=== PATIENT | female | born 1935 | race Caucasian/White ===

== ENCOUNTER → 2017-03-07 | Day surgery (SDC) | payer BC ==
[2017-03-02 10:30] VITALS: Ht 161.3 cm; Wt 75.0 kg
[~2017-03-07] VITALS: Ht 161.3 cm; Wt 75.0 kg
[~2017-03-07] MED LIST: 500ML BSS 0.3ML EPI 1:1000PF IRRIG ONE; ACETAMINOPHEN 325 MG TAB PO PRN; ACETTAB14 PO; AMVISC PLUS 0.8ML SYRINGE INT OCU ONE; ATROPINE SULFATE 0.1 MG/ML 5ML SYR IV PRN; BROM0.0911 OPL; BSS FLUSH ONE; CHOL100010 PO; CMD/1 PO; ENDOCOAT 0.85ML SYRINGE INT OCU ONE; EpHEDrine SULFATE INJ 50 MG/ML AMP IV PRN; EpINEphrine INJ 1MG/ML AMP 1 MG/ML AMP ONE; FENTANYL CITRATE INJ 50 MCG/1 ML 2 ML VIAL ONE; LACTATED RINGER'S 1000ML 500 ML IV SCH; LIDOCAINE 4% OP SOLN DROP CHARGE ONE; LIDOCAINE 4% OP SOLN DROP CHARGE OPL SCH; LIDOCAINE HCL 1% MPF 2 ML VIAL ONE; LISI-729 PO; METF-383 PO; MIDAZOLAM HCL 1 MG/ML 2ML VIAL ONE; MIX: 4ML BSS 1ML EPI 1:1000 PF TOP ONE; MOXIFLOXACIN OPH SOLN PER DROP CHARGE ONE; OMEGCAP2 PO; POVIDONE-IODINE OP SOLN 30 ML BTL ONE; PRED1SUS3 OPL; PROPARACAINE 0.5% OP SOLN PER DROP CHARGE OPL SCH; TOBRAMYCIN/DEXAMETHASONE OPH OINT PER APPLN CHARGE ONE; WARF-246 PO
[2017-03-07] MEDS: TROPICAMIDE 1% OP SOLN PER DROP CHARGE OPL SCH ×3 (09:19→09:29)
[2017-03-07] MEDS: CYCLOPENTOLATE HCL 1% OP SOLN PER DROP CHARGE OPL SCH ×3 (09:20→09:30)
[2017-03-07] MEDS: PHENYLEPHRINE HCL 10% OP SOLN 5 ML BTL OPL SCH ×3 (09:20→09:28)
[2017-03-07] MEDS: MOXIFLOXACIN OPH SOLN PER DROP CHARGE OPL SCH ×3 (09:21→09:31)
--- NOTE | 2017-03-07 09:27 | History & Physical Bridge - [place] ---
H&P Re-Evaluation Bridge Note: I have examined the patient, reviewed the History & Physical and in the interval since the performance of the History & Physical I have noted the following changes of clinical significance: No changes noted
--- NOTE | 2017-03-07 10:35 | [facility] Post Operative Brief Note ---
Immediate Operative Summary Operative Date Mar 07, 2017. Pre-Operative Diagnosis Left Eye Cataract Post-Operative Diagnosis same Procedure(s) Performed Left Cataract Phacoemulsification With Intraocular Lens Implant Surgeon Dr. Shiloh Barahona Plant Nursery Worker Surgeon(s) 0 Estimated Blood Loss 0 Findings left cataract Specimens none Complication(s) None Disposition
[2017-03-07 10:36] VITALS: BP 137/75; PULSE 66; TEMP 36.2; O2SAT 97
--- NOTE | 2017-03-07 10:36 | [facility] Operative Report ---
Operative Report Date of Service Mar 07, 2017. Operative Report DATE OF OPERATION: 03/07/17 PREOPERATIVE DIAGNOSIS: Senile nuclear cataract, left eye POSTOPERATIVE DIAGNOSIS: Senile nuclear cataract, left eye PROCEDURE PERFORMED: Phacoemulsification with intraocular lens implantation, left eye SURGEON: Dr. Feng Barahona ANESTHESIA: Topical with 1% intracameral lidocaine and monitored anesthesia care COMPLICATIONS: None DESCRIPTION OF PROCEDURE: After positively identifying the patient both verbally and by wristband in the preoperative area, the left eye was marked as the operative eye. The patient was then brought back to the operating room by the anesthesia and nursing staff where they were given a drop of Lidocaine and betadine into the operative eye. They were then sterilely prepped and draped in the standard fashion typical for ophthalmic surgery. Steri-strips were placed along the upper eyelids to keep the lashes back, and a lid speculum was placed into the operative eye. At this point, a documented time out was performed with members of the ophthalmology, nursing, and anesthesia staffs all agreeing upon the correct patient, correct location for surgery, correct procedure, and correct type and power of intraocular lens to be implanted. The microscope was then swung into position. First, a paracentesis wound was made using a sideport blade. Then, in sequence, 1% preservative-free lidocaine followed by Endocoat viscoelastic was injected into the anterior chamber. Next , the main incision was made with a keratome blade in triplanar fashion. A sharp cystotome was introduced into the eye and used to create a tear in the anterior capsule, which was directed into a continuous curvilinear capsulorrhexis using Utrata forceps. Hydrodissection was then performed with BSS on a flat-tip cannula. Next, the phacoemulsification handpiece was introduced into the eye and used to remove the nucleus in a [id number] fashion. This was done without complication and then the irrigation-aspiration handpiece was introduced into the eye and used to remove all remaining cortical and epinuclear material. Amvisc was then injected into the anterior chamber as well as into the capsular bag and using the lens injector system, an MX60 24.5 D lens, serial number [id number], and expiration date 07/2019 was injected into the capsular bag and rotated into the correct position. Next, the irrigation- aspiration handpiece was used to remove all remaining Amvisc. BSS was used to hydrate the main wound, and then BSS was injected into the paracentesis site to reach physiologic pressure and then the main wound was checked and found to be watertight. The patient was given drops of Vigamox and Tobradex ointment into the operative eye, and then the surrounding area was cleaned and dried. A clear plastic shield was placed over the eye and the patient was then sat up and taken from the operating room by the anesthesia staff having tolerated the procedure well and suffering no complications. DISPOSITION: The patient was returned to the recovery room in stable condition. I attest to the content of the Intraoperative Record and any orders documented therein. Any exceptions are noted below.
--- NOTE | 2017-03-07 10:37 | Discharge Instructions-SurgCtr ---
Discharge Instructions Date of Service Mar 07, 2017. Visit Reason for Visit: Cataract Left Eye Discharge Discharge Diagnosis / Problem: left cataract Discharge Goals Goal(s): Decrease discomfort, Improve function Medications Stopped Medications Name(s): metformin stopped 3 days ago Activity Recommendations Activity Limitations: as noted below Anesthesia . Post Anesthesia Instructions: If you have had General Anesthesia or IV Sedation: * Do not drive today. * Resume driving when surgeon permits. * Do not make important decisions or sign legal documents today. * Call surgeon for: 1. Temperature elevations greater than 101 degrees F. 2. Uncontrollable pain. 3. Excessive bleeding. 4. Persistent nausea and vomiting. 5. Medication intolerance (nausea, vomiting or rash). * For nausea and vomiting use only clear liquids such as: tea, soda, bouillon until nausea subsides, then gradually increase diet as tolerated. * If you have any concerns or questions, call your surgeon's office. If physician is unavailable and it is an emergency, call 911 or go to the nearest emergency room. . Instructions / Follow-Up Instructions / Follow-Up ACTIVITY RECOMMENDATIONS: * Light activities. * You may walk outside, read, watch television. * You may notice redness on the white part of the eye and some blurry vision - this is normal. MEDICATIONS: Resume previous medications unless instructed otherwise by your surgeon. Start all eye drops at 12:30 pm today: * Eye drops (today): Prednisone - one drop in operative eye every 2 hours while awake Ofloxacin - one drop in operative eye every 2 hours while awake Bromfenac - one drop in operative eye daily SPECIAL CARE INSTRUCTIONS: * Tape plastic shield over eye to sleep at night. Call your doctor at with any concerns or problems. FOLLOW UP VISIT: Follow-up with Dr Barahona at [place] office as scheduled. Diet Recommendations Home Diet: no limitations Procedures Procedures Performed: Left Cataract Phacoemulsification With Intraocular Lens Implant Pending Studies Studies pending at discharge: no Medical Emergencies . Who to Call and When: Medical Emergencies: If at any time you feel your situation is an emergency, please call 911 immediately. . Non-Emergent Contact Non-Emergency issues call your: Surgeon . . "Provider Documentation" section prepared by Feng Barahona. .
--- NOTE | 2017-03-07 10:45 | Anesthesia Progress Nt - [facility] ---
Anesthesia Post Op Note Date & Time Mar 07, 2017 at 10:45 Vital Signs Pain Intensity: 0 Vital Signs Past 12 Hours Date Time Temp Pulse Resp B/P (MAP) Pulse Ox O2 Delivery O2 Flow Rate FiO2 03/07/17 10:36 36.2 66 16 137/75 (95) 97 Room Air 03/07/17 09:10 36.7 69 16 165/83 (110) 97 Room Air Notes Mental Status: alert / awake / arousable, participated in evaluation Pt Amnestic to Procedure: Yes Nausea / Vomiting: adequately controlled Pain: adequately controlled Airway Patency, RR, SpO2: stable & adequate BP & HR: stable & adequate Hydration State: stable & adequate Anesthetic Complications: no major complications apparent
== END | disposition home or self-care (01) ==
LOC: X.SURG 08:36
PROVIDERS: ATTEND Ophthalmology
DX: H25.12 Age-related nuclear cataract, left eye (principal); I10 Essential (primary) hypertension; E78.00 Pure hypercholesterolemia, unspecified; E11.9 Type 2 diabetes mellitus without complications; M06.9 Rheumatoid arthritis, unspecified; K21.9 Gastro-esophageal reflux disease without esophagitis; K44.9 Diaphragmatic hernia without obstruction or gangrene; E78.5 Hyperlipidemia, unspecified; Z79.01 Long term (current) use of anticoagulants

== ENCOUNTER → 2017-03-21 | Day surgery (SDC) | payer BC ==
[2017-03-19 08:50] VITALS: Ht 161.3 cm; Wt 75.0 kg
[~2017-03-21] VITALS: Ht 161.3 cm; Wt 75.0 kg
[~2017-03-21] MED LIST changes: -EpHEDrine SULFATE INJ 50 MG/ML AMP IV PRN; -FENTANYL CITRATE INJ 50 MCG/1 ML 2 ML VIAL ONE; +LACTATED RINGER'S 1000ML 1,000 ML IV SCH; -LACTATED RINGER'S 1000ML 500 ML IV SCH; -LIDOCAINE 4% OP SOLN DROP CHARGE OPL SCH; +LIDOCAINE 4% OP SOLN DROP CHARGE OPR SCH; -PROPARACAINE 0.5% OP SOLN PER DROP CHARGE OPL SCH; +PROPARACAINE 0.5% OP SOLN PER DROP CHARGE OPR SCH
[2017-03-21] MEDS: PHENYLEPHRINE HCL 2.5% OP SOLN PER DROP CHARGE OPR SCH ×3 (07:28→07:38)
[2017-03-21] MEDS: TROPICAMIDE 1% OP SOLN PER DROP CHARGE OPR SCH ×3 (07:29→07:39)
[2017-03-21] MEDS: CYCLOPENTOLATE HCL 1% OP SOLN PER DROP CHARGE OPR SCH ×3 (07:30→07:40)
[2017-03-21] MEDS: MOXIFLOXACIN OPH SOLN PER DROP CHARGE OPR SCH ×3 (07:31→07:43)
--- NOTE | 2017-03-21 08:29 | [facility] Post Operative Brief Note ---
Immediate Operative Summary Operative Date Mar 21, 2017. Pre-Operative Diagnosis Cataract Right Eye Post-Operative Diagnosis same as preop Procedure(s) Performed Right Cataract Phacoemulsification With Intraocular Lens Implant Surgeon Dr. Barahona Hand Molder Surgeon(s) none Estimated Blood Loss 0ml Findings right cataract Specimens none, per surgeon. Complication(s) None Disposition
[2017-03-21 08:30] VITALS: TEMP 36.4
--- NOTE | 2017-03-21 08:30 | [facility] Operative Report ---
Operative Report Date of Service Mar 21, 2017. Operative Report Phaco with monofocal IOL DATE OF OPERATION: 03/21/17 PREOPERATIVE DIAGNOSIS: Senile nuclear cataract, right eye POSTOPERATIVE DIAGNOSIS: Senile nuclear cataract, right eye PROCEDURE PERFORMED: Phacoemulsification with intraocular lens implantation, right eye SURGEON: Dr. Feng Barahona ANESTHESIA: Topical with 1% intracameral lidocaine and monitored anesthesia care COMPLICATIONS: None DESCRIPTION OF PROCEDURE: After positively identifying the patient both verbally and by wristband in the preoperative area, the right eye was marked as the operative eye. The patient was then brought back to the operating room by the anesthesia and nursing staff where they were given a drop of Lidocaine and betadine into the operative eye. They were then sterilely prepped and draped in the standard fashion typical for ophthalmic surgery. Steri-strips were placed along the upper eyelids to keep the lashes back, and a lid speculum was placed into the operative eye. At this point, a documented time out was performed with members of the ophthalmology, nursing, and anesthesia staffs all agreeing upon the correct patient, correct location for surgery, correct procedure, and correct type and power of intraocular lens to be implanted. The microscope was then swung into position. First, a paracentesis wound was made using a sideport blade. Then, in sequence, 1% preservative-free lidocaine followed by Endocoat viscoelastic was injected into the anterior chamber. Next , the main incision was made with a keratome blade in triplanar fashion. A sharp cystotome was introduced into the eye and used to create a tear in the anterior capsule, which was directed into a continuous curvilinear capsulorrhexis using Utrata forceps. Hydrodissection was then performed with BSS on a flat-tip cannula. Next, the phacoemulsification handpiece was introduced into the eye and used to remove the nucleus in a bplqys-emv-fkowubh fashion. This was done without complication and then the irrigation-aspiration handpiece was introduced into the eye and used to remove all remaining cortical and epinuclear material. Amvisc was then injected into the anterior chamber as well as into the capsular bag and using the lens injector system, an MX60 24.5 D lens, serial number [id number], and expiration date 07/2019 was injected into the capsular bag and rotated into the correct position. Next, the irrigation- aspiration handpiece was used to remove all remaining Amvisc. BSS was used to hydrate the main wound, and then BSS was injected into the paracentesis site to reach physiologic pressure and then the main wound was checked and found to be watertight. The patient was given drops of Vigamox and Tobradex ointment into the operative eye, and then the surrounding area was cleaned and dried. A clear plastic shield was placed over the eye and the patient was then sat up and taken from the operating room by the anesthesia staff having tolerated the procedure well and suffering no complications. DISPOSITION: The patient was returned to the recovery room in stable condition. I attest to the content of the Intraoperative Record and any orders documented therein. Any exceptions are noted below.
--- NOTE | 2017-03-21 08:31 | Discharge Instructions-SurgCtr ---
Discharge Instructions Date of Service Mar 21, 2017. Visit Reason for Visit: Cataract Right Eye Discharge Discharge Diagnosis / Problem: right cataract Discharge Goals Goal(s): Decrease discomfort, Improve function Medications Stopped Medications Name(s): Metformin stopped 2 days ago Activity Recommendations Activity Limitations: as noted below Anesthesia . Post Anesthesia Instructions: If you have had General Anesthesia or IV Sedation: * Do not drive today. * Resume driving when surgeon permits. * Do not make important decisions or sign legal documents today. * Call surgeon for: 1. Temperature elevations greater than 101 degrees F. 2. Uncontrollable pain. 3. Excessive bleeding. 4. Persistent nausea and vomiting. 5. Medication intolerance (nausea, vomiting or rash). * For nausea and vomiting use only clear liquids such as: tea, soda, bouillon until nausea subsides, then gradually increase diet as tolerated. * If you have any concerns or questions, call your surgeon's office. If physician is unavailable and it is an emergency, call 911 or go to the nearest emergency room. . Instructions / Follow-Up Instructions / Follow-Up ACTIVITY RECOMMENDATIONS: * Light activities. * You may walk outside, read, watch television. * You may notice redness on the white part of the eye and some blurry vision - this is normal. MEDICATIONS: Resume previous medications unless instructed otherwise by your surgeon. Start all eye drops at 10:30 am today: * Eye drops (today): Prednisone - one drop in operative eye every 2 hours while awake Ofloxacin - one drop in operative eye every 2 hours while awake Bromfenac - one drop in operative eye daily SPECIAL CARE INSTRUCTIONS: * Tape plastic shield over eye to sleep at night. Call your doctor at with any concerns or problems. FOLLOW UP VISIT: Follow-up with Dr Barahona at [place] office as scheduled. Diet Recommendations Home Diet: no limitations Procedures Procedures Performed: Right Cataract Phacoemulsification With Intraocular Lens Implant Pending Studies Studies pending at discharge: no Medical Emergencies . Who to Call and When: Medical Emergencies: If at any time you feel your situation is an emergency, please call 911 immediately. . Non-Emergent Contact Non-Emergency issues call your: Surgeon . . "Provider Documentation" section prepared by Feng Barahona. .
[2017-03-21 08:52] VITALS: BP 154/83; PULSE 61; O2SAT 97
--- NOTE | 2017-03-21 09:02 | Anesthesiology Progress Note ---
Anesthesia Post Op Note Date & Time Mar 21, 2017 at 09:02 Vital Signs Pain Intensity: 0 Vital Signs Past 12 Hours Date Time Temp Pulse Resp B/P (MAP) Pulse Ox O2 Delivery O2 Flow Rate FiO2 03/21/17 08:52 61 16 154/83 (106) 97 Room Air 03/21/17 08:30 36.4 64 18 144/73 (96) 96 Room Air 03/21/17 07:16 36.7 65 16 145/83 (103) 97 Room Air Notes Mental Status: alert / awake / arousable, participated in evaluation Pt Amnestic to Procedure: Yes Nausea / Vomiting: adequately controlled Pain: adequately controlled Airway Patency, RR, SpO2: stable & adequate BP & HR: stable & adequate Hydration State: stable & adequate Anesthetic Complications: no major complications apparent
== END | disposition home or self-care (01) ==
LOC: X.SURG 06:57
PROVIDERS: ATTEND Ophthalmology
DX: H25.11 Age-related nuclear cataract, right eye (principal); I10 Essential (primary) hypertension; E10.9 Type 1 diabetes mellitus without complications; E78.00 Pure hypercholesterolemia, unspecified

== ENCOUNTER → 2017-06-21 | Day surgery (SDC) | payer BC ==
[2017-06-14 09:08] VITALS: Ht 161.3 cm; Wt 75.0 kg
[~2017-06-21] VITALS: Ht 161.3 cm; Wt 75.0 kg
[~2017-06-21] MED LIST changes: -500ML BSS 0.3ML EPI 1:1000PF IRRIG ONE; -ACETAMINOPHEN 325 MG TAB PO PRN; -ACETTAB14 PO; +ACETTAB15 PO; -AMVISC PLUS 0.8ML SYRINGE INT OCU ONE; -BROM0.0911 OPL; -BSS FLUSH ONE; -ENDOCOAT 0.85ML SYRINGE INT OCU ONE; +EpHEDrine SULFATE INJ 50 MG/ML AMP IV PRN; -EpINEphrine INJ 1MG/ML AMP 1 MG/ML AMP ONE; -LACTATED RINGER'S 1000ML 1,000 ML IV SCH; -LIDOCAINE 4% OP SOLN DROP CHARGE ONE; -LIDOCAINE 4% OP SOLN DROP CHARGE OPR SCH; -LIDOCAINE HCL 1% MPF 2 ML VIAL ONE; +LIDOCAINE HCL 2% 2 ML VIAL (20MG/ML) ONE; -MIX: 4ML BSS 1ML EPI 1:1000 PF TOP ONE; -MOXIFLOXACIN OPH SOLN PER DROP CHARGE ONE; -OMEGCAP2 PO; +ONDANSETRON INJ 2 MG/ML 2 ML VIAL ONE; +PHENYLEPHRINE 100MCG/ML 5ML SYR ONE; -POVIDONE-IODINE OP SOLN 30 ML BTL ONE; -PRED1SUS3 OPL; -PROPARACAINE 0.5% OP SOLN PER DROP CHARGE OPR SCH; +PROPOFOL IV EMULSION 10 MG/ML 20 ML VIAL IV ONE; +SODIUM CHLORIDE 0.9% 500ML 500 ML IV ONE; -TOBRAMYCIN/DEXAMETHASONE OPH OINT PER APPLN CHARGE ONE; +ZNTT/150 PO
--- NOTE | 2017-06-21 09:20 | Endo History and Physical ---
History & Physical Date of Service: Jun 21, 2017. Chief Complaint: Referring Physician: History of Present Illness patient with iron def anemia Past Medical History Diabetes, Anxiety, Hypertension, Thrombophlebitis Past Surgical History Hx Cardiac Surgery: Yes (CARDIAC CATH (DIAGNOSTIC)) Hx Internal Defibrillator: No Hx Pacemaker: No Hx Abdominal Surgery: Yes (OVARIAN CYST REMOVAL) Hx Post-Op Nausea and Vomiting: No Hx Cancer Surgery: Yes (LYMPH NODE EXCISION ON NECK FOR BX) Hx Thoracic Surgery: No Hx Orthopedic: No Hx Urinary Tract Surgery: No Family History None Social History Smoking Status: Never Smoker Hx Substance Use: No Hx Alcohol Use: No Allergies Coded Allergies: Statins (Verified Allergy, Unknown, muscle pain,weakness, 06/04/17) Current Medications Reported Home Medications Medications Dose Route/Sig Max Daily Dose Days Date Category Zantac (Ranitidine HCl) 150 Mg Tab 150 Mg PO BID 06/14/17 Reported Vitamin D (Cholecalciferol) 1,000 Unit Tab 1 Tab PO BID 06/04/17 Reported Prinivil (Lisinopril) 5 Mg Tab 5 Mg PO QPM 03/19/17 Reported Warfarin Sodium (Warfarin Sod) 1 Mg Tab 7 Mg PO T,W,R,SA,SUN 03/02/17 Reported Excedrin Tension Headache (Acetaminophen-Caffeine) 1 Tab Tab PO DAILY PRN 03/15/15 Reported Warfarin Sodium 5 Mg Tab 5 Mg PO MF 90 02/23/15 Reported Glucophage (Metformin Hcl) 850 Mg Tab 850 Mg PO TIDM 02/23/15 Reported Vital Signs Weight (Kilograms): 75 Height (Feet): 5 Height (Inches): 3.5 Physical Exam General Appearance: no apparent distress Respiratory/Chest: Auscultation: breath sounds normal Cardiovascular: Heart Auscultation: RRR Abdomen: Inspection & Palpation: soft, no tenderness, guarding & rebound Assessment and Plan stable for EGD/ Colonoscopy
[2017-06-21 09:25] VITALS: TEMP 36.9
--- NOTE | 2017-06-21 10:16 | Discharge Instructions ---
Endoscopy Patient Instructions Date / Procedure(s) Performed Jun 21, 2017. Colonoscopy, EGD Allergy Information Coded Allergies: Statins (Verified Allergy, Unknown, muscle pain,weakness, 06/04/17) Discharge Date / Findings Jun 21, 2017. stomach with gastric erosions/ small polyp removed Medication Instructions Stopped Medication(s): last dose warfarin last night Provider Instructions Activity Restrictions - No exercising or heavy lifting for 24 hours. - Do not drink alcohol the day of the procedure. - Do not drive a car or operate machinery until the day after the procedure. - Do not make any important decisions or sign important papers in 24 hours after the procedure. Following Day: - Return to full activity which may include returning to work/school. Diet Start your diet with liquids and light foods (jello, soup, juice, toast). Then eat your usual diet if not nauseated. Treatment For Common After Affects For mild abdominal pain, bloating, or excessive gas: - Rest - Eat lightly - Lie on right side Follow-Up Information Follow-up with Dr. Elizabeth Ma as scheduled Anesthesia Information What You Should Know You have had a procedure that required some medicine to reduce anxiety and discomfort. This treatment is called moderate sedation. After receiving the treatment, you may be sleepy, but you will be able to breathe on your own. The effects of the treatment may last for several hours. Follow these instructions along with Activity/Diet recommendations noted above: * Do NOT do anything where dizziness or clumsiness would be dangerous. * Rest quietly at home today, then you can be up and about tomorrow. * Have a responsible person stay with you the rest of today. * You may have had an I.V. today. If so, you may take the dressing off later today. Recommendations Call your doctor if: * Trouble breathing * Continuous vomiting for more than 24 hours * Temperature above 101 degrees * Severe abdominal pain or bloating * Pain not relieved by pain medicine ordered * There is increased drainage or redness from any incision * A large amount of rectal bleeding greater than 2-3 tablespoons. (If you had a polyp/s removed or have hemorrhoids, a small amount of blood - from the rectum is to be expected.) * You have any unanswered questions or concerns. IN THE EVENT OF A SERIOUS EMERGENCY, GO TO THE NEAREST EMERGENCY ROOM Your discharge instructions were prepared by provider Yves Josue. Patient Instructions Signature Page Aylin Alters Patient (or Guardian) Signature/Date: I have read and understand the instructions given to me by my caregivers. Caregiver/RN/Doctor Signature/Date: The above-named patient and/or guardian has received patient instructions on this date. + Original Patient Signature Page (only) stays with chart. Please make copy for patient.
--- NOTE | 2017-06-21 10:25 | Anesthesiology Progress Note ---
Anesthesia Post Op Note Date & Time Jun 21, 2017 at 10:24 Vital Signs Pain Intensity: 0 Vital Signs Past 12 Hours Date Time Temp Pulse Resp B/P (MAP) Pulse Ox O2 Delivery O2 Flow Rate FiO2 06/21/17 10:15 67 20 98/47 (64) 95 Room Air 06/21/17 09:25 36.9 93 20 174/98 (123) 98 Room Air Notes Mental Status: alert / awake / arousable, participated in evaluation Pt Amnestic to Procedure: Yes Nausea / Vomiting: adequately controlled Pain: adequately controlled Airway Patency, RR, SpO2: stable & adequate BP & HR: stable & adequate Hydration State: stable & adequate Anesthetic Complications: no major complications apparent
[2017-06-21 10:45] VITALS: BP 126/70; PULSE 69; O2SAT 97
--- NOTE | 2017-06-22 00:23 | GI REPORT ---
Procedure Date: 06/21/2017 9:13 AM Procedure: Upper GI endoscopy Indications: Iron deficiency anemia Medicines: See the Anesthesia note for documentation of the administered medications Complications: No immediate complications. Estimated Blood Loss: Estimated blood loss was minimal. Procedure: Pre-Anesthesia Assessment: - Prior to the procedure, a History and Physical was performed, and patient medications, allergies and sensitivities were reviewed. The patient's tolerance of previous anesthesia was reviewed. - The risks and benefits of the procedure and the sedation options and risks were discussed with the patient. All questions were answered and informed consent was obtained. - Patient identification and proposed procedure were verified prior to the procedure by the physician and the nurse. The procedure was verified in the pre-procedure area. - Pre-procedure physical examination revealed no contraindications to sedation. - After reviewing the risks and benefits, the patient was deemed in satisfactory condition to undergo the procedure. After obtaining informed consent, the endoscope was passed under direct vision. Throughout the procedure, the patient's blood pressure, pulse, and oxygen saturations were monitored continuously. The scope was introduced through the mouth, and advanced to the third part of duodenum. The upper GI endoscopy was accomplished without difficulty. The patient tolerated the procedure well. Findings: The esophagus was normal. Multiple dispersed small erosions were found in the gastric antrum. Biopsies were taken with a cold forceps for Helicobacter pylori testing. Verification of patient identification for the specimen was done by the physician and nurse using the patient's name and medical record number. Estimated blood loss was minimal. A few erosions without bleeding were found in the first part of the duodenum. The cardia and gastric fundus were normal on retroflexion. Impression: - Normal esophagus. - Erosive gastropathy most likely from NSAID use. Biopsied. - Duodenal erosions without bleeding. Recommendation: - Await pathology results. - Patient should stay on PPI daily indefinitley. - Perform a colonoscopy today. Yevs Josue M.D. Yves Josue MD 06/21/2017 10:11:04 AM This report has been signed electronically. Note Initiated On: 06/21/2017 9:13 AM I attest to the content of the Intraoperative Record and orders documented therein, exceptions below
--- NOTE | 2017-06-22 00:23 | GI REPORT ---
Procedure Date: 06/21/2017 9:47 AM Procedure: Colonoscopy Indications: Iron deficiency anemia Medicines: See the Anesthesia note for documentation of the administered medications Complications: No immediate complications. Estimated Blood Loss: Estimated blood loss was minimal. Procedure: Pre-Anesthesia Assessment: - See the other procedure note for documentation of the pre-procedure assessment. After I obtained informed consent, the scope was passed under direct vision. Throughout the procedure, the patient's blood pressure, pulse, and oxygen saturations were monitored continuously. The scope was introduced through the anus and advanced to the terminal ileum, with identification of the appendiceal orifice and IC valve. The colonoscopy was performed without difficulty. The patient tolerated the procedure well. The quality of the bowel preparation was fair. Findings: The perianal and digital rectal examinations were normal. A 5 mm polyp was found in the cecum. The polyp was sessile. The polyp was removed with a cold snare. Resection and retrieval were complete. Verification of patient identification for the specimen was done by the physician and nurse using the patient's name and medical record number. Estimated blood loss was minimal. The exam was otherwise without abnormality on direct and retroflexion views. Impression: - One 5 mm polyp in the cecum, removed with a cold snare. Resected and retrieved. - The examination was otherwise normal on direct and retroflexion views. - Fair prep. Recommendation: - Await pathology results. - Discharge patient to home. Yves Josue M.D. Yves Josue MD 06/21/2017 10:12:39 AM This report has been signed electronically. Note Initiated On: 06/21/2017 9:47 AM I attest to the content of the Intraoperative Record and orders documented therein, exceptions below
== END | disposition home or self-care (01) ==
LOC: C.GI 09:06
PROVIDERS: ATTEND Internal Medicine Gastroenterology
DX: D50.9 Iron deficiency anemia, unspecified (principal); D12.0 Benign neoplasm of cecum; K29.50 Unspecified chronic gastritis without bleeding; E11.9 Type 2 diabetes mellitus without complications; F41.9 Anxiety disorder, unspecified; I10 Essential (primary) hypertension

== ENCOUNTER 2017-07-04 13:25 | Observation (INO) | payer BC ==
[~2017-07-04] VITALS: Ht 160 cm; Wt 73.6 kg
[~2017-07-04 13:25] MED LIST changes: -ATROPINE SULFATE 0.1 MG/ML 5ML SYR IV PRN; -EpHEDrine SULFATE INJ 50 MG/ML AMP IV PRN; -LIDOCAINE HCL 2% 2 ML VIAL (20MG/ML) ONE; -MIDAZOLAM HCL 1 MG/ML 2ML VIAL ONE; -ONDANSETRON INJ 2 MG/ML 2 ML VIAL ONE; -PHENYLEPHRINE 100MCG/ML 5ML SYR ONE; -PROPOFOL IV EMULSION 10 MG/ML 20 ML VIAL IV ONE; -SODIUM CHLORIDE 0.9% 500ML 500 ML IV ONE
[2017-07-04] MEDS ORDERED: CYAN10005 PO (14:46)
[2017-07-04] MEDS ORDERED: WARF4TAB43 PO (14:46)
[2017-07-04] MEDS ORDERED: FENO1TAB PO (14:46)
--- NOTE | 2017-07-04 14:54 | DIAGNOSTIC IMAGING REPORT ---
SINGLE VIEW CHEST CLINICAL HISTORY: Atypical chest pain. FINDINGS: An AP, portable, upright chest radiograph is compared to study dated 02/28/2015 and correlated with chest CT dated 02/27/2015. The examination is degraded by portable technique and patient rotation. The cardiomediastinal silhouette is unremarkable. There is atherosclerotic calcification of the thoracic aorta. Chronic interstitial thickening is unchanged. There are chronic appearing bibasilar opacities. No large pleural effusion or pneumothorax is seen. The skeletal structures are osteopenic. The bony thorax is grossly intact. Degenerative change is seen throughout the thoracic spine. IMPRESSION: There are chronic appearing bibasilar airspace opacities, left greater than right. Correlate clinically for evidence of a superimposed infectious/inflammatory pneumonitis. Electronically signed by: Godwin Painter M.D. 07/04/2017 2:52 PM Dictated Date/Time: 07/04/2017 2:50 PM
[2017-07-04 14:56] LABS: BASO % 0.5 %; BASO ABS # 0.04 K/uL (0-0.2); COMPLETE YES; EOS % 5.2 %; HEMATOCRIT 30.6 % (37-47); IG% 0.2 %; LYMPH % 34.8 %; LYMPH ABS # 2.86 K/uL (1.2-3.4); MEAN CELL VOLUME 80.1 fL (80-100); MEAN CORPUSCULAR HEMOGLOBIN 25.1 pg (25-34); MEAN CORPUSCULAR HGB CONC 31.4 g/dl (32-36); MEAN PLATELET VOLUME 9.5 fL (7.4-10.4); NEUT % 52.3 %; PLATELET COUNT 454 K/uL (130-400); RED BLOOD COUNT 3.82 M/uL (4.2-5.4); WHITE BLOOD COUNT 8.23 K/uL (4.8-10.8)
--- NOTE | 2017-07-04 14:56 | DIAGNOSTIC IMAGING REPORT ---
HEAD WITHOUT CONTRAST (CT) CLINICAL HISTORY: 82 years-old Female presenting with eval for bleed, fall. TECHNIQUE: Multidetector CT imaging of the head was performed without the use of intravenous contrast. IV contrast: None. A dose lowering technique was used consistent with the principles of ALARA (as low as reasonably achievable). COMPARISON: None. CT DOSE (mGy.cm): The estimated cumulative dose is 537.48 mGy.cm. 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 Proportional ventricular and sulcal prominence, likely age-related parenchymal volume loss. Brain parenchyma normal in appearance with preserved lanza-white differentiation. No mass effect or midline shift. No hemorrhage or acute territorial infarct. No extra-axial fluid collection. Paranasal sinuses and mastoid air cells clear. Calvarium intact. IMPRESSION: 1. No acute intracranial abnormality. Electronically signed by: Herberth Lima M.D. 07/04/2017 2:54 PM Dictated Date/Time: 07/04/2017 2:52 PM
[2017-07-04 15:09] LABS: INR 3.3 (0.9-1.1); PARTIAL THROMBOPLASTIN RATIO 1.5; PROTHROMBIN TIME (PATIENT) 37.1 SECONDS (9.0-12.0)
[2017-07-04 15:14] LABS: BUN/CREATININE RATIO 16.7 (10-20); CALCIUM 9.7 mg/dl (8.5-10.1); CREATININE 1.18 mg/dl (0.60-1.20); POTASSIUM 4.4 mmol/L (3.5-5.1)
[2017-07-04] MEDS ORDERED: NITROGLYCERIN OINT 2% 1GM PACKET EXT ONE (16:00)
--- NOTE | 2017-07-04 16:24 | History and Physical ---
History & Physical Date & Time of Service: Jul 04, 2017 at 16:24 Chief Complaint: Chest Pressure Primary Care Physician: Elizabeth Ma M.D. 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 Sunday at she was talking to her Neighbor on the driveway -she said she blacked out and fell on the ground , does not recall hitting her head or having injury anywhere denies of having chest pressure , SOB , dizzy spell , nausea prior to fall , her neighbors helped her to get up , she said she did not feel weak , or confused , She walked back to her house , did not seek any medical attention reviewing pt's medical records -Hx of Fe deficiency/Microcytic anemia ; out pt stool Heme occult was positive -EGD /Colonoscopy done on 06/21/17 showed no evidence of GI bleed, evidence of gastritic in stomach and duodenum,-pathology : chronic gastritis , Immunostain negative for H Pylori Colonoscopic eval showed adenomatous polyp pt was scheduled for Out pt cardiac stress test for her ongoing symptoms of chest heaviness Exercise stress test could not be scheduled due to Anemia /poor exercise tolerance Pt was seen at [facility] Room Engineer office today EGG done in office showed no ischemic change due to concern for ongoing chest tightness /recent Syncope -pt was asked to come to ER for detail cardiac work up pt was chest pain free in ER during my evaluation , continued feel dizzy and lightheaded when she stood up Orthostatic BP check shows hypotension with change of position Supine 168/83 ; Sitting 153/77 ; Standing 112/77 Past Medical/Surgical History Medical Problems: (1) Diabetes Status: Chronic (2) Diabetes Status: Chronic (3) HTN (hypertension) Status: Chronic (4) Hypercholesteremia Status: Chronic (5) Hypertension Status: Chronic Family History Patient reports no known family medical history. Social History Smoking Status: Never Smoker Marital Status: Occupational Status: retired Multi-Drug Resistant Organisms History of MDRO: No Allergies Coded Allergies: Statins (Verified Allergy, Unknown, muscle pain,weakness, 06/04/17) Home Medications Scheduled Cholecalciferol (Vitamin D), 1 TAB PO BID Cyanocobalamin (Vitamin B-12), 1,000 MCG PO DAILY Fenofibrate (Tricor), 1 TAB PO DAILY Lisinopril (Prinivil), 5 MG PO QPM Metformin Hcl (Glucophage), 850 MG PO TIDM Ranitidine (Zantac), 150 MG PO BID Warfarin Sodium (Warfarin Sodium), 5 MG PO MF Warfarin Sodium (Warfarin Sodium), 1 TAB PO UD Scheduled PRN Acetaminophen-Caffeine (Excedrin Tension Headache), PO DAILY PRN for Headache Review of Systems Constitutional: + weakness, + fatigue Eyes: No worsening of vision, No eye pain, No redness, No discharge, No diplopia, No problem reported ENT: No hearing loss, No unusual epistaxis, No nasal symptoms, No sore throat, No tinnitus, No dental problems, No trouble swallowing, No problem reported Respiratory: + dyspnea on exertion Cardiovascular: + chest pain (central chest pressure for past few weeks ) Abdomen: No pain, No nausea, No vomiting, No diarrhea, No constipation, No GI bleeding, No problem reported Musculoskeletal: No joint pain, No muscle pain, No swelling, No calf pain, No problem reported Genitourinary - Female: No dysuria, No urinary frequency, No urinary urgency, No urinary incontinence, No urinary retention, No hematuria, No dysmenorrhea, No menorrhagia, No metrorrhagia, No rash, No vaginal bleeding, No vaginal discharge, No vaginal itching, No vulvodynia, No , No problem reported Neurologic: + weakness, + vertigo (while standing ), + problem reported ( syncope ) Endocrine: + fatigue Physical Exam Vital Signs Date Time Temp Pulse Resp B/P (MAP) Pulse Ox O2 Delivery O2 Flow Rate FiO2 07/04/17 15:52 78 20 167/90 96 Room Air 07/04/17 14:39 77 07/04/17 14:38 Room Air 07/04/17 13:39 36.9 80 20 142/83 96 Room Air General Appearance: no apparent distress Head: normocephalic, atraumatic Eyes: normal inspection, PERRL, EOMI, sclerae normal ENT: normal ENT inspection, hearing grossly normal, pharynx normal Neck: thyroid normal, no carotid bruits Respiratory/Chest: chest non-tender, lungs clear, normal breath sounds, no respiratory distress Cardiovascular: regular rate, rhythm, no edema, no gallop, no JVD, no murmur, normal peripheral pulses Abdomen/GI: normal bowel sounds, non tender, soft Extremities/Musculoskelatal: normal inspection, no calf tenderness, normal capillary refill, no pedal edema, normal range of motion Neurologic/Psych: no motor/sensory deficits, alert, normal mood/affect, oriented x 3 Skin: normal color, warm/dry, no rash Lymphatic: no adenopathy Diagnostics Laboratory Results Results Past 24 Hours Test 07/04/17 14:30 07/04/17 14:34 Range/Units White Blood Count 8.23 4.8-10.8 K/uL Red Blood Count 3.82 4.2-5.4 M/uL Hemoglobin 9.6 12.0-16.0 g/dL Hematocrit 30.6 37-47 % Mean Corpuscular Volume 80.1 80-100 fL Mean Corpuscular Hemoglobin 25.1 25-34 pg Mean Corpuscular Hemoglobin Concent 31.4 32-36 g/dl Platelet Count 454 130-400 K/uL Mean Platelet Volume 9.5 7.4-10.4 fL Neutrophils (%) (Auto) 52.3 % Lymphocytes (%) (Auto) 34.8 % Monocytes (%) (Auto) 7.0 % Eosinophils (%) (Auto) 5.2 % Basophils (%) (Auto) 0.5 % Neutrophils # (Auto) 4.30 1.4-6.5 K/uL Lymphocytes # (Auto) 2.86 1.2-3.4 K/uL Monocytes # (Auto) 0.58 0.11-0.59 K/uL Eosinophils # (Auto) 0.43 0-0.5 K/uL Basophils # (Auto) 0.04 0-0.2 K/uL RDW Standard Deviation 55.2 36.4-46.3 fL RDW Coefficient of Variation 19.3 11.5-14.5 % Immature Granulocyte % (Auto) 0.2 % Immature Granulocyte # (Auto) 0.02 0.00-0.02 K/uL Prothrombin Time 37.1 9.0-12.0 SECONDS Prothromb Time International Ratio 3.3 0.9-1.1 Activated Partial Thromboplast Time 38.7 21.0-31.0 SECONDS Partial Thromboplastin Ratio 1.5 Sodium Level 135 136-145 mmol/L Potassium Level 4.4 3.5-5.1 mmol/L Chloride Level 106 98-107 mmol/L Carbon Dioxide Level 22 21-32 mmol/L Anion Gap 7.0 3-11 mmol/L Blood Urea Nitrogen 20 7-18 mg/dl Creatinine 1.18 0.60-1.20 mg/dl Est Creatinine Clear Calc Drug Dose 36.3 ml/min Estimated GFR () 50.1 Estimated GFR (Non- 43.2 BUN/Creatinine Ratio 16.7 10-20 Random Glucose 108 70-99 mg/dl Calcium Level 9.7 8.5-10.1 mg/dl Bedside Troponin I < 0.030 0-0.045 ng/ml Diagnostic Radiology CHEST XRAY : IMPRESSION: There are chronic appearing bibasilar airspace opacities, left greater than right. Correlate clinically for evidence of a superimposed infectious/inflammatory pneumonitis. CT HEAD WITH OUT CONTRAST ; No acute intracranial process EKG Vent. rate 81 BPM MA interval 160 ms QRS duration 82 ms QT/QTc 360/418 ms P-R-T axes 58 -50 40 Sinus rhythm with Premature atrial complexes Left anterior fascicular block Abnormal ECG When compared with ECG of 28-FEB-2015 08:24, Premature atrial complexes are now Present Impression Assessment and Plan CHEST PAIN : not typical for angina having chest pressure like symptom on and off for past few week, no other associated symptom pt is very poor historian , try to minimize her symptoms -says she is fine and wants to be discharged home as soon as possible chest pain free in ER , no hypoxia EKG -sinus rhythm , no ischemic change Cardiac marker -ist set of Troponin negative ordered for serial markers to be checked monitor in Tele to assess for arrhythmia Resting ECHO ordered Cardiology eval requested will defer to Cardiology for decision for cardiac stress test SYNCOPE : does not appear to be vasovagal as per pt's symptom no evidence of CVA , no clinical neurological deficit , CT head negative study pt is significantly orthostatic in ER -Supine 168/83 ; Sitting 153/77 ; Standing 112/77 ordered for IV fluid pt denies any symptoms of diarrhea , poor appetite or urinary symptoms Doubt any thromboembolic event given therapeutic INR Carotid Doppler ordered to R/o carotid artery disease ECHO to assess any valvular pathology cont tele monitoring Orthostatic vitals q shift HYPONATREMIA : possible due to dehydration , pt also found to be orthostatic labile BP IVF with NSS @ 100 ml /hr repeat BMP in AM check TSH GERD : EGD 06/21/17 : normal Esophagus , multiple Erosions noted on in gastric antrum with no evidence of active bleeding , few Erosions with out evidence of active bleeding noted in Ist part of the duodenum pathology: chronic gastritis, negative for H.pylori , negative metaplasia pt denies of taking any NSAID's /no Aspirin On H2 stefani -ranitidine-continued added PPI CHRONIC FE DEFICIENCY ANEMIA : recent Fe study showed low Fe , ferritin level EGD /Colonoscopy -no evidence of GI bleed cont Fe supplement /vit C Hb 9.6 improved form recent out pt lab of Hb 8.9 monitor H&H HX OF DVT : hx of DVT in lower ext in 2000 , has been on Coumadin since INR 3.3 will hold Coumadin today resume tomorrow at lower dose follow daily INR HYPERLIPIDEMIA : hx of statin intolerance Cont fenofibrate Fasting lipid panel in AM lab HTN : hold Lisinopril for now -orthostatic Hypotension COLON POLYP : Colonoscopy 06/21 17 -showed colonic polyp , pathology : Tubular Adenoma Family hx of Colonic polyp needs close surveillance repeat Coloscopy in 5 years or earlier as per GI recommendation TYPE 2 DM : will hold Metformin -home med Insulin SSI -although pt is very reluctant to have Insulin Hb A1 c in AM lab FULL CODE DVT PROPHYLAXIS : INR elevated 3.3 DISPOSITION : PT /OT eval prior to discharge Lives at home with , been independent in ADL's ;dose not use any assistive device Medicine follow up with Dr Elizabeth Ma at [facility] Cardiology follow up with Dr Marin Level of Care Telemetry Resuscitation Status FULL RESUSCITATION VTE Prophylaxis VTE Risk Assessment Done? Y/N: Yes Risk Level: Moderate Given or contraindicated: Unfractionated heparin SQ Additional Copies To Elizabeth Ma M.D. Kopinski, Thomas O., DO
[2017-07-04] MEDS ORDERED: NITROGLYCERIN 0.4 MG SL PER TAB CHARGE SL PRN (16:45)
[2017-07-04] MEDS ORDERED: GLUCAGON FOR INJ 1 MG VIAL SQ PRN (16:45)
[2017-07-04] MEDS ORDERED: POLYETHYLENE (MIRALAX) 17 GM PACK PO PRN (16:45)
[2017-07-04] MEDS ORDERED: IV FLUIDS COMPLETED PRN (16:45)
[2017-07-04] MEDS ORDERED: ONDANSETRON INJ 2 MG/ML 2 ML VIAL IV PRN (16:45)
[2017-07-04] MEDS ORDERED: ACETAMINOPHEN 325 MG TAB PO PRN (16:45)
[2017-07-04] MEDS ORDERED: GLUCOSE 40% GEL 15 GM TUBE PO PRN (16:45)
[2017-07-04] MEDS ORDERED: ALUMINUM/MAGNESIUM/SIMETH (MAALOX MAX) 30 ML UDC PO PRN (16:45)
[2017-07-04] MEDS ORDERED: MAGNESIUM HYDROXIDE SUSP 30 ML UDC PO PRN (16:45)
[2017-07-04] MEDS ORDERED: GLUCOSE 10 TABS/TUBE PO PRN (16:45)
[2017-07-04] MEDS ORDERED: DEXTROSE 50% 50 ML SYR IV PRN (16:45)
[2017-07-04 18:00] VITALS: BP 133/77; PULSE 69; TEMP 36.9; O2SAT 96; Ht 160 cm; Wt 73.6 kg
[2017-07-04] MEDS: SODIUM CHLORIDE 0.9% 1000ML 1,000 ML IV SCH (18:15)
--- NOTE | 2017-07-04 18:41 | EMERGENCY ROOM VISIT NOTE ---
History Report prepared by Jessica: Yue Mccray Under the Supervision of: Dr. Ganga Keenan M.D. First contact with patient: 14:17 Chief Complaint: CARDIAC ASSESSMENT Stated Complaint: CHEST PRESSURE History of Present Illness The patient is a 82 year old female who presents to the Emergency Room for a cardiac assessment. The patient has been having intermittent chest pain for the past few months. Yesterday she was feeling nauseated and today she developed heaviness in her chest. She is still having some mild heaviness. She denies any current shortness of breath but reports feeling short of breath occasionally. The patient had a syncopal episode 4 days ago. She was standing and talking to her neighbor when she suddenly felt lightheaded and passed out. She hit the ground and hit her head when she passed out. She was unconscious for just a few seconds. She denies any injury or headache after the fall. The patient is on Coumadin for previous DVTs. She denies neck pain, numbness, weakness, melena, hematochezia, and pain or swelling in her legs. She is no longer taking any NSAIDs. Source of History: patient Onset: a few months ago Position: chest Symptom Intensity: mild Quality: other (heaviness) Timing: intermittent Associated Symptoms: No headache, No neck pain, No SOB, No melena, No hematochezia, No weakness, No numbness Note: Pt had syncopal episode 4 days ago. Review of Systems See HPI for pertinent positives & negatives. A total of 10 systems reviewed and were otherwise negative. Past Medical & Surgical Medical Problems: (1) Chest pain (2) Diabetes (3) Diabetes (4) HTN (hypertension) (5) Hypercholesteremia (6) Hypertension Family History Patient reports no known family medical history. Social History Smoking Status: Never Smoker Marital Status: Housing Status: lives with significant other Occupation Status: retired Current/Historical Medications Scheduled Cholecalciferol (Vitamin D), 1 TAB PO BID Cyanocobalamin (Vitamin B-12), 1,000 MCG PO DAILY Fenofibrate (Tricor), 1 TAB PO DAILY Lisinopril (Prinivil), 5 MG PO QPM Metformin Hcl (Glucophage), 850 MG PO TIDM Ranitidine (Zantac), 150 MG PO BID Warfarin Sodium (Warfarin Sodium), 5 MG PO MF Warfarin Sodium (Warfarin Sodium), 1 TAB PO UD Scheduled PRN Acetaminophen-Caffeine (Excedrin Tension Headache), PO DAILY PRN for Headache Allergies Coded Allergies: Statins (Verified Allergy, Unknown, muscle pain,weakness, 06/04/17) Physical Exam Vital Signs Date Time Temp Pulse Resp B/P (MAP) Pulse Ox O2 Delivery O2 Flow Rate FiO2 07/04/17 15:52 78 20 167/90 96 Room Air 07/04/17 14:39 77 07/04/17 14:38 Room Air 07/04/17 13:39 36.9 80 20 142/83 96 Room Air Physical Exam Constitutional: Vital signs reviewed. Eyes: Pupils are equal round reactive to light. Conjunctiva are noninjected. ENT: Pharynx is clear without erythema or exudate. Mucous membranes are moist. Neck supple without meningeal signs. Respiratory: Clear to auscultation bilaterally. Breath sounds are equal bilaterally. Cardiovascular: Regular rate and rhythm. No rubs or gallops. GI: Soft, nondistended and nontender. Bowel sounds are present. Musculoskeletal: No midline tenderness to cervical spine. No peripheral edema. No lower extremity tenderness. Integumentary: No cyanosis. Neurological: The patient is awake and alert. Cranial nerves II-XII are intact. Motor is 5 out of 5 all extremities. Sensation is intact to light touch all extremities. Normal speech. No pronator drift. Psychiatric: Normal affect. Medical Decision & Procedures ER Provider Diagnostic Interpretation: Radiology results as stated below per my review and the radiologist's interpretation: SINGLE VIEW CHEST CLINICAL HISTORY: Atypical chest pain. FINDINGS: An AP, portable, upright chest radiograph is compared to study dated 02/28/2015 and correlated with chest CT dated 02/27/2015. The examination is degraded by portable technique and patient rotation. The cardiomediastinal silhouette is unremarkable. There is atherosclerotic calcification of the thoracic aorta. Chronic interstitial thickening is unchanged. There are chronic appearing bibasilar opacities. No large pleural effusion or pneumothorax is seen. The skeletal structures are osteopenic. The bony thorax is grossly intact. Degenerative change is seen throughout the thoracic spine. IMPRESSION: There are chronic appearing bibasilar airspace opacities, left greater than right. Correlate clinically for evidence of a superimposed infectious/inflammatory pneumonitis. Electronically signed by: Godwin Painter M.D. 07/04/2017 2:52 PM Dictated Date/Time: 07/04/2017 2:50 PM HEAD WITHOUT CONTRAST (CT) CLINICAL HISTORY: 82 years-old Female presenting with eval for bleed, fall. TECHNIQUE: Multidetector CT imaging of the head was performed without the use of intravenous contrast. IV contrast: None. A dose lowering technique was used consistent with the principles of ALARA (as low as reasonably achievable). COMPARISON: None. CT DOSE (mGy.cm): The estimated cumulative dose is 537.48 mGy.cm. 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 Proportional ventricular and sulcal prominence, likely age-related parenchymal volume loss. Brain parenchyma normal in appearance with preserved lanza-white differentiation. No mass effect or midline shift. No hemorrhage or acute territorial infarct. No extra-axial fluid collection. Paranasal sinuses and mastoid air cells clear. Calvarium intact. IMPRESSION: 1. No acute intracranial abnormality. Electronically signed by: Herberth Lima M.D. 07/04/2017 2:54 PM Dictated Date/Time: 07/04/2017 2:52 PM Laboratory Results 07/04/17 14:30 Red Blood Count 3.82, Mean Corpuscular Volume 80.1, Mean Corpuscular Hemoglobin 25.1, Mean Corpuscular Hemoglobin Concent 31.4, Mean Platelet Volume 9.5, Neutrophils (%) (Auto) 52.3, Lymphocytes (%) (Auto) 34.8, Monocytes (%) (Auto) 7.0, Eosinophils (%) (Auto) 5.2, Basophils (%) (Auto) 0.5, Neutrophils # (Auto) 4.30, Lymphocytes # (Auto) 2.86, Monocytes # (Auto) 0.58, Eosinophils # (Auto) 0.43, Basophils # (Auto) 0.04 07/04/17 14:30 Test 07/04/17 14:30 07/04/17 14:34 White Blood Count 8.23 K/uL (4.8-10.8) Red Blood Count 3.82 M/uL (4.2-5.4) Hemoglobin 9.6 g/dL (12.0-16.0) Hematocrit 30.6 % (37-47) Mean Corpuscular Volume 80.1 fL (80-100) Mean Corpuscular Hemoglobin 25.1 pg (25-34) Mean Corpuscular Hemoglobin Concent 31.4 g/dl (32-36) Platelet Count 454 K/uL (130-400) Mean Platelet Volume 9.5 fL (7.4-10.4) Neutrophils (%) (Auto) 52.3 % Lymphocytes (%) (Auto) 34.8 % Monocytes (%) (Auto) 7.0 % Eosinophils (%) (Auto) 5.2 % Basophils (%) (Auto) 0.5 % Neutrophils # (Auto) 4.30 K/uL (1.4-6.5) Lymphocytes # (Auto) 2.86 K/uL (1.2-3.4) Monocytes # (Auto) 0.58 K/uL (0.11-0.59) Eosinophils # (Auto) 0.43 K/uL (0-0.5) Basophils # (Auto) 0.04 K/uL (0-0.2) RDW Standard Deviation 55.2 fL (36.4-46.3) RDW Coefficient of Variation 19.3 % (11.5-14.5) Immature Granulocyte % (Auto) 0.2 % Immature Granulocyte # (Auto) 0.02 K/uL (0.00-0.02) Erythrocyte Sedimentation Rate 35 mm/hr (0-21) Prothrombin Time 37.1 SECONDS (9.0-12.0) Prothromb Time International Ratio 3.3 (0.9-1.1) Activated Partial Thromboplast Time 38.7 SECONDS (21.0-31.0) Partial Thromboplastin Ratio 1.5 D-Dimer 650 ug/L FEU (0-500) Anion Gap 7.0 mmol/L (3-11) Est Creatinine Clear Calc Drug Dose 36.3 ml/min Estimated GFR () 50.1 Estimated GFR (Non- 43.2 BUN/Creatinine Ratio 16.7 (10-20) Calcium Level 9.7 mg/dl (8.5-10.1) Bedside Troponin I < 0.030 ng/ml (0-0.045) Laboratory results as reviewed by me. ECG Indication: chest pain Rate (beats per minute): 81 Rhythm: sinus rhythm Findings: PAC, no acute ischemic change ED Course 1417: The patient was evaluated in room A9B. A complete history and physical exam was performed. 1548: I reassessed the patient at this time. She is still complaining of a small amount of pressure in her chest. I discussed the results and treatment plan with the patient. I answered all pertaining questions that she had. She expressed understanding and verbalized agreement. 1550: I spoke with Dr. Velazco. We discussed the patients case. [facility] 1600: Nitroglycerin 0.5 inch EXT Medical Decision This is an 82-year-old female who presents with chest pain and syncope. Differential diagnosis includes unstable angina, WI, pleurisy, GERD, dysrhythmia , intracranial hemorrhage, metabolic derangement. I did perform a limited focused review of portions of the patient's old chart on the electronic medical record. The patient had an EGD on 06/21/17 which showed a normal esophagus and erosive gastropathy. She had a colonoscopy on the same date which showed a polyp in the cecum that was removed, otherwise normal. I did evaluate the patient as noted above. Patient is presenting with a syncopal episode that occurred several days ago. Over the past month or 2 she has had intermittent chest discomfort. She had chest discomfort starting this morning as well. She describes it as a heaviness in her chest without radiation. IV access was established. The patient was placed on a continuous monitor tech. I did order and personally review the patient's 12-lead EKG and chest x-ray as described above. I did order and review the patient's blood work as noted in the electronic medical record. Troponin is negative. She is anemic. Her INR is therapeutic. I did order a CT of her chest due to her syncope. Her CT scan did not show any evidence of hemorrhage. I did treat patient with nitroglycerin paste. I did discuss the test results with her. I did recommend hospitalization for further evaluation of her symptoms. I did discuss case with the hospitalist and case investigator. Head Trauma GCS Score: 15 Medication Reconcilliation Current Medication List: was personally reviewed by me Blood Pressure Screening Patient's blood pressure: Elevated blood pressure Blood pressure disposition: Referred to PCP Consults Time Called: 1547 Consulting Physician: Dr. Velazco Returned Call: [address] Velazoc. We discussed the patients case. The patient will be evaluated by the [facility] for further management. Impression Primary Impression: Precordial chest pain Additional Impressions: Anemia Syncope Anticoagulated on Coumadin Scribe Attestation The scribe's documentation has been prepared under my direct and personally reviewed by me in its entirety. I confirm that the note above accurately reflects all work, treatment, procedures, and medical decision making performed by me. Departure Information Dispostion Being Evaluated By Hospitalist Referrals Elizabeth Ma M.D. (PCP) Patient Instructions My [facility] Problem Qualifiers Additional Impressions: Anemia Anemia type: unspecified type Qualified Codes: D64.9 - Anemia, unspecified Syncope Syncope type: unspecified Qualified Codes: R55 - Syncope and collapse
[2017-07-04 19:17] LABS: URINE APPEARANCE CLEAR (CLEAR); URINE BILIRUBIN NEG (NEG); URINE COLOR YELLOW; URINE EPITHELIAL CELL AUTO >30 /lpf (0-5); URINE NITRITE NEG (NEG); URINE SPECIFIC GRAVITY 1.012 (1.000-1.030); UROBILINOGEN NEG (NEG); ZZUR CULT IF INDIC CLEAN CATCH YES
[2017-07-04 19:18] LABS: MANUAL MICROSCOPIC REQUIRED? NO; REVIEW REQ? NO
[2017-07-04 19:40] VITALS: BP 125/63; PULSE 74; TEMP 36.5; O2SAT 96
[2017-07-04 20:00] VITALS: O2SAT 96
[2017-07-04] MEDS: INSULIN ASPART 100 UNITS/ML 3 ML PEN SC SCH (20:39)
[2017-07-04] MEDS: CHOLECALCIFEROL 1000 INTER.UNIT TAB PO SCH (20:39)
[2017-07-04] MEDS ORDERED: LISINOPRIL 5 MG TAB PO SCH (21:00)
[2017-07-04] MEDS ORDERED: RANITIDINE HCL 150 MG TAB PO SCH (21:00)
[2017-07-04 22:54] LABS: CKMB/CK RATIO 0.9 (0-3.0)
[2017-07-04 23:08] VITALS: BP 162/69; PULSE 78; TEMP 36.6; O2SAT 97
[2017-07-05 00:19] VITALS: BP_SYST 134; BP_SYST 162; BP_DIAS 72; BP_DIAS 75
[2017-07-05 03:34] VITALS: BP 154/72; PULSE 80; TEMP 36.5; O2SAT 95
[2017-07-05] MEDS: SODIUM CHLORIDE 0.9% 1000ML 1,000 ML IV SCH (03:37)
--- NOTE | 2017-07-05 06:43 | DIAGNOSTIC IMAGING REPORT ---
CAROTID DOPPLER NECK ART CLINICAL HISTORY: 82 years-old Female presenting with syncope r/o carotid stenosis . TECHNIQUE: Real-time grayscale and color and spectral Doppler ultrasound imaging of the bilateral carotid arteries was performed. NASCET criteria was used in evaluating this study. COMPARISON: None. FINDINGS: Right: Common carotid: Hypoechoic material distends the lumen of the right common carotid artery with only minimal color Doppler flow noted at the carotid bulb. The filling defect largely appears occlusive with the exception of the proximal most portion of the right CCA which demonstrates high resistance flow with a peak systolic velocity of 62 cm/s and no diastolic flow. Internal carotid artery: Dampened flow noted in the proximal and mid right ICA. The distal ICA is not visualized. Peak systolic velocity 20 cm/s. Systolic ratio: Unreliable. External carotid artery: Reversal of flow in the right external carotid artery likely supplying collateral flow to the right internal carotid artery. Peak systolic velocity 96 cm/s. Left: Common carotid: Atherosclerosis. Peak systolic velocity 84 cm/s. Internal carotid artery: Atherosclerosis of the proximal ICA. Peak systolic velocity 80 cm/s. Systolic ratio: 0.95. External carotid artery: Atherosclerosis. Peak systolic velocity 211 cm/s. Bilateral antegrade flow within the vertebral arteries. Reference ranges: Stenosis measurements are compared to reference velocity parameters. ICA peak systolic velocity (PSV) < 125 cm/s normal or indicating < 50% stenosis; ICA PSV 125-230 cm/s equivalent to 50-69% stenosis; ICA PSV > 230 cm/s equivalent to greater than or equal to 70% stenosis. ICA PSV to common carotid artery PSV ratio < 2 normal or < 50% stenosis; 2-4 equates to 50-69% stenosis, > 4 equates to greater than or equal to 70% stenosis. Normal ICA end-diastolic velocity less than 40. Blood pressure Brachial: Not performed. IMPRESSION: The right common carotid artery is largely occluded except for the proximal most portion. Dampened collateral flow to the right internal carotid artery via the reversal of flow in the right external carotid artery. The right internal carotid artery remains patent and without significant stenosis. Left cervical vasculature patent without significant stenosis in the left common carotid or internal carotid arteries. The report will be called/faxed according to standard departmental protocol. Electronically signed by: Herberth Lima M.D. 07/05/2017 6:42 AM Dictated Date/Time: 07/05/2017 6:36 AM
[2017-07-05 06:58] LABS: INR 2.8 (0.9-1.1); PROTHROMBIN TIME (PATIENT) 31.7 SECONDS (9.0-12.0)
[2017-07-05 07:02] LABS: ESTIMATED AVERAGE GLUCOSE 134 mg/dl; HA1C FLAG Normal (Normal)
[2017-07-05 07:30] LABS: BLOOD UREA NITROGEN 17 mg/dl (7-18); BUN/CREATININE RATIO 14.8 (10-20); CARBON DIOXIDE 22 mmol/L (21-32); CHLORIDE 109 mmol/L (98-107); CREATININE 1.12 mg/dl (0.60-1.20); GLUCOSE 118 mg/dl (70-99); POTASSIUM 4.2 mmol/L (3.5-5.1); SODIUM 139 mmol/L (136-145)
[2017-07-05 07:31] LABS: CHOLESTEROL 262 mg/dl (0-200); TRIGLYCERIDES 213 mg/dl (0-150); VERY LOW DENSITY LIPOPROT CALC 43 mg/dl
[2017-07-05 07:40] LABS: CHOLESTEROL/HDL RATIO 5.3; CKMB/CK RATIO 1.4 (0-3.0); HDL CHOLESTEROL 49 mg/dl; LDL CHOLESTEROL CALCULATED 170 mg/dl
[2017-07-05] MEDS: FENOFIBRATE~ORDER AWAITING ACTION SCH ×2 (08:00)
[2017-07-05 08:39] VITALS: BP_SYST 130; BP_SYST 154; BP_SYST 166; BP_DIAS 78; BP_DIAS 84; BP_DIAS 90; PULSE 76; PULSE 81; PULSE 97; O2SAT 96
[2017-07-05] MEDS: INSULIN ASPART 100 UNITS/ML 3 ML PEN SC SCH ×2 (08:47→11:30)
[2017-07-05] MEDS: CHOLECALCIFEROL 1000 INTER.UNIT TAB PO SCH (08:49)
[2017-07-05] MEDS ORDERED: FENOFIBRATE PO SCH (09:00)
[2017-07-05] MEDS ORDERED: PANTOprazole SOD 40 MG TAB PO SCH (09:00)
[2017-07-05] MEDS ORDERED: CYANOCOBALAMIN 500 MCG TAB (VIT B-12) PO SCH (09:00)
--- NOTE | 2017-07-05 10:26 | ECHOCARDIOGRAM REPORT ---
*NOTICE TO RECEIVING [employer] This information is strictly Confidential and protected under [place] law. [place] law prohibits you from making any further disclosure of this information unless further disclosure is expressly permitted by the written consent of the person to whom it pertains or is authorized by law. A general authorization for the release of medical or other information is not sufficient for this purpose. Hospital accepts no responsibility if the information is made available to any other person, INCLUDING THE PATIENT. Interpretation Summary * The study was technically adequate. * There is no comparison study available. * -- Conclusions -- * Left ventricular systolic function is normal. * Ejection Fraction = 55-60%. * There is borderline concentric left ventricular hypertrophy. * Grade I diastolic dysfunction, (abnormal relaxation pattern). * Aortic valve sclerosis mild, without significant aortic valvular stenosis. * Mild aortic regurgitation. Procedure Details * A complete two-dimensional transthoracic echocardiogram was performed (2D, M-mode, Doppler and color flow Doppler). * A contrast injection of Definity was performed to improve assessment of LV function. * Contrast was injected into an intravenous site in the right arm. * One vial of Definity ultrasound contrast was diluted in normal saline to a total volume of 10 ml. A total of '2' ml of solution was administered during imaging. * Lot # [id number] of Definity utilized for procedure. * Expiration date 1DEC18. * The attending nurse who injected the contrast agent was Belen Sumner RN. Left Ventricle * The left ventricle is normal in size. * There is no thrombus. * There is borderline concentric left ventricular hypertrophy. * Ejection Fraction = 55-60%. * Left ventricular systolic function is normal. * The left ventricular wall motion is normal. Right Ventricle * The right ventricle is normal size. * The right ventricular systolic function is normal as assessed by tricuspid annular plane systolic excursion (TAPSE) (normal >1.5 cm). Atria * The left atrial size is normal. * Right atrial size is normal. * There is no evidence of atrial septal defect, but resolution does not allow assessment for a patent foramen ovale. Mitral Valve * The mitral valve is normal. * There is no mitral valve stenosis. * Significant mitral regurgitation is absent. Tricuspid Valve * The tricuspid valve is normal. * There is no tricuspid stenosis. * There is mild tricuspid regurgitation. Aortic Valve * The aortic valve is trileaflet. * Aortic valve sclerosis mild, without significant aortic valvular stenosis. * Aortic stenosis is absent. * Mild aortic regurgitation. Pulmonic Valve * The pulmonary valve is not well seen, but the Doppler examination is normal without significant regurgitation or stenosis. Great Vessels * Mildly dilated ascending aorta. Pericardium/Pleural * There is no pericardial effusion. Great Vessels * Normal inferior vena cava diameter and respiratory variation suggests normal central venous pressure. Left Ventricular Diastolic Function * Grade I diastolic dysfunction, (abnormal relaxation pattern). MMode 2D Measurements and Calculations IVSd 1.2 cm IVSs 1.2 cm LVIDd 3.8 cm LVIDs 2.5 cm LVPWd 1.2 cm LVPWs 1.3 cm IVS/LVPW 1.1 FS 34.2 % EDV(Teich) 62.9 ml ESV(Teich) 22.7 ml EF(Teich) 63.9 % EDV(cubed) 55.9 ml ESV(cubed) 15.9 ml EF(cubed) 71.5 % % IVS thick -0.32 % % LVPW thick 14.2 % LV mass(C)d 153.0 grams LV mass(C)dI 85.9 grams/m\S\2 LV mass(C)s 95.1 grams LV mass(C)sI 53.4 grams/m\S\2 SV(Teich) 40.2 ml SI(Teich) 22.6 ml/m\S\2 SV(cubed) 40.0 ml SI(cubed) 22.4 ml/m\S\2 Ao root diam 3.8 cm Ao root area 11.2 cm\S\2 ACS 2.0 cm LA dimension 3.1 cm asc Aorta Diam 4.1 cm LA/Ao 0.83 LVAd ap4 29.2 cm\S\2 LVLd ap4 7.7 cm EDV(MOD-sp4) 92.6 ml EDV(sp4-el) 94.3 ml LVAs ap4 15.5 cm\S\2 LVLs ap4 5.9 cm ESV(MOD-sp4) 34.6 ml ESV(sp4-el) 34.6 ml EF(MOD-sp4) 62.7 % EF(sp4-el) 63.3 % LVAd ap2 25.2 cm\S\2 LVLd ap2 7.1 cm EDV(MOD-sp2) 74.8 ml EDV(sp2-el) 76.2 ml LVAs ap2 14.6 cm\S\2 LVLs ap2 6.2 cm ESV(MOD-sp2) 28.3 ml ESV(sp2-el) 29.0 ml EF(MOD-sp2) 62.2 % EF(sp2-el) 61.9 % LVLd %diff -8.36 % EDV(MOD-bp) 86.3 ml LVLs %diff 5.2 % ESV(MOD-bp) 32.1 ml EF(MOD-bp) 62.8 % SV(MOD-sp4) 58.1 ml SI(MOD-sp4) 32.6 ml/m\S\2 SV(MOD-sp2) 46.6 ml SI(MOD-sp2) 26.1 ml/m\S\2 SV(MOD-bp) 54.2 ml SI(MOD-bp) 30.4 ml/m\S\2 SV(sp4-el) 59.6 ml SI(sp4-el) 33.5 ml/m\S\2 SV(sp2-el) 47.2 ml SI(sp2-el) 26.5 ml/m\S\2 Doppler Measurements and Calculations MV E max marleni 57.9 cm/sec MV A max marleni 85.6 cm/sec MV E/A 0.68 MV V2 max 86.4 cm/sec MV max PG 3.0 mmHg MV V2 mean 38.4 cm/sec MV mean PG 0.75 mmHg MV V2 VTI 30.2 cm MV P1/2t max marleni 63.2 cm/sec MV P1/2t 102.5 msec MVA(P1/2t) 2.1 cm\S\2 MV dec slope 180.6 cm/sec\S\2 MV dec time 0.27 sec Ao V2 max 119.4 cm/sec Ao max PG 5.7 mmHg Ao max PG (full) 3.2 mmHg AI max marleni 254.0 cm/sec AI max PG 25.8 mmHg AI dec slope 120.0 cm/sec\S\2 AI P1/2t 619.9 msec LV V1 max PG 2.5 mmHg LV V1 max 79.0 cm/sec PA V2 max 102.5 cm/sec PA max PG 4.2 mmHg TR max marleni 159.0 cm/sec
[2017-07-05] MEDS ORDERED: DOBUTamine HCL 12.5 MG/ML 20 ML VIAL ONE (11:16)
[2017-07-05] MEDS ORDERED: ATROPINE SULFATE 0.1 MG/ML 5ML SYR ONE (11:16)
[2017-07-05] MEDS ORDERED: METOPROLOL TARTRATE 1 MG/ML VIAL ONE (11:16)
--- NOTE | 2017-07-05 11:37 | CARDIOLOGY CONSULTATION ---
DATE OF CONSULTATION: 07/05/2017 REFERRING PHYSICIAN: Dr. Gabrielle Herron. REASON FOR CONSULTATION: Chest discomfort. HISTORY OF PRESENT ILLNESS: Ms. Burgess is an 82-year-old female who presented to my office yesterday on 07/04/2017 with complaints of syncopal episode occurring on Sunday as well as persistent chest heaviness and pressure. Chest pressure present for approximately 24 hours. There is no associated shortness of breath. An ECG performed in the office demonstrates sinus rhythm with frequent premature atrial complexes. Telemetry overnight has demonstrated sinus rhythm with PACs. Her cardiac enzymes are negative. A resting 2D transthoracic echo is pending at this time. The patient had a carotid duplex performed on admission demonstrating high grade right-sided common carotid stenosis. The patient currently resting comfortably. Chest discomfort has resolved. Repeat hemoglobin performed on admission demonstrated improvement to 9.6 with iron supplementation, previously 8.9. Recent upper and lower endoscopies were unremarkable. The patient is chronically anticoagulated due to a remote history of recurrent DVT. Denies orthopnea, PND, lower extremity edema, or claudication. Intermittent palpitations unchanged. Offers no other complaints at this time. REVIEW OF SYSTEMS: The pertinent positives noted above. A comprehensive 10-system review is otherwise negative. PAST MEDICAL HISTORY: 1. Newly diagnosed common carotid stenosis -- right sided. 2. 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 4. GERD. 5. Colon polyp. 6. Dyslipidemia with statin intolerance. 7. Diabetes type 2. 8. Spinal stenosis. PAST SURGICAL HISTORY: 1. Breast biopsy. 2. Colonoscopy. 3. EGD. 4. Removal of an ovary duct due to left-sided cyst. 5. Tonsil and adenoidectomy. 6. Sigmoidoscopy. FAMILY HISTORY: Denies family history of premature CAD or sudden cardiac . There was a family history of colon cancer. SOCIAL HISTORY: Lifelong nonsmoker. Denies alcohol or illicit drug use. ALLERGIES: ATORVASTATIN, CRESTOR, GEMFIBROZIL, IBUPROFEN, SIMVASTATIN, TRAMADOL, AND ZETIA. CURRENT OUTPATIENT MEDICATIONS: 1. Ranitidine 150 mg twice daily. 2. Fenofibrate 160 mg daily. 3. Coumadin 7 mg alternating with 5 mg as directed by the anticoagulation clinic. 4. Metformin 850 mg 3 times daily. 5. Lisinopril 5 mg daily. 6. Nortriptyline at bedtime. 7. Fish oil 1000 mg twice daily. 8. Vitamin D daily. LABORATORY DATA: White blood cell count 8.23, hemoglobin 9.6, and platelet count is 454. Sodium is 139, potassium 4.2, chloride is 109, CO2 is 22, BUN is 17, and creatinine is 1.12. Cardiac enzymes are negative x3 sets. Triglycerides are 213. Total cholesterol 262, LDL is 170, and HDL is 49. TSH is 2.440. Urinalysis demonstrates moderate leukocyte esterase and negative nitrites. IMAGING STUDIES: Carotid duplex: Right common carotid artery large occluded except for proximal most portion. Dampened collateral flow to the right internal carotid artery via reversal of flow in the right external carotid artery. Right internal carotid artery remains patent without significant stenosis. No left-sided carotid disease. CT of the head: No acute intracranial abnormality. Chest x-ray: Chronic appearing bibasilar airspace opacities, left greater than right. Clinical correlation advised. PHYSICAL EXAMINATION: VITAL SIGNS: Temperature is 36.5 degrees centigrade, pulse is 76 beats per minute and irregular, respiratory rate 22 breaths per minute, and blood pressure 154/78 supine and 130/84 standing. GENERAL: NAD, awake, alert and oriented x3. HEENT: Mucous membranes moist. No scleral icterus. Conjunctivae pink. NECK: Supple without JVD or HJR. No carotid bruit. HEART: Regular with a normal S1 and S2. No murmur, rub or gallop. LUNGS: Clear without rales, rhonchi or wheeze. ABDOMEN: Soft and nontender. No rebound or guarding. Normal bowel sounds. EXTREMITIES: Warm and dry without clubbing, cyanosis, or edema. NEUROLOGIC: Demonstrates no focal deficit. FINAL IMPRESSION: 1. An 82-year-old female admitted with syncope and persistent chest pressure. Symptoms have resolved. She has ruled out for acute coronary syndrome. Baseline resting 2D transthoracic echo pending. No sustained dysrhythmias on telemetry; however, orthostatic hypotension documented per vital signs as potential etiology of her intermittent lightheadedness and recent syncopal episode. 2. Dyslipidemia with statin intolerance. 3. Severe right-sided common carotid stenosis. 4. History of recurrent DVT on chronic anticoagulation -- INR is therapeutic. 5. Microcytic anemia -- hemoglobin improved with iron supplementation. Recent upper and lower endoscopy performed without obvious site of blood loss; however, colon polyp and gastric erosions noted. PLAN AND RECOMMENDATIONS: Resting 2D transthoracic echo will be reviewed when available. There are no resting wall motion abnormalities or significant valvular disease. We will proceed with dobutamine stress echocardiography for further evaluation of chest discomfort. In regard to her carotid vascular disease, I have ordered a vascular surgery consultation for further evaluation at this time. The patient has AN ALLERGY TO STATINS, which are indicated. I will discuss further possible trial of low dose pravastatin and/or Crestor. She will continue fenofibrate at this time. I am reluctant to add antiplatelet therapy in the setting of her chronic anticoagulation with recent EGD demonstrating gastric erosions as well as microcytic anemia, currently supplemented with iron. Coumadin will be continued for the time being. Further recommendations pending review of stress testing. Conservative measures regarding orthostatic hypotension reviewed. 14 day ZIO will performed as outpatient if inpatient testing is unremarkable. Thank you for allowing me to take part in the care of your patient. PRISCILA
[2017-07-05 11:56] VITALS: BP 122/59; PULSE 78; TEMP 36.7; O2SAT 97
--- NOTE | 2017-07-05 12:28 | Cardiology Progress Note ---
Cardiology Progress Note Date of Service Jul 05, 2017. Cardiology Progress Note Dobutamine stress echocardiogram was negative for ischemia. Full report to follow.
[2017-07-05] MEDS ORDERED: PERFLUTREN LIPID MICROSPHERE (DEFINITY) IV ONE (12:54)
--- NOTE | 2017-07-05 13:01 | Procedure Note ---
Pre-Mod Sedation Assessment General Date of Moderate Sedation: Jul 05, 2017. Vital Signs: Vital Signs Past 12 Hours Date Time Temp Pulse Resp B/P (MAP) Pulse Ox O2 Delivery O2 Flow Rate FiO2 07/05/17 12:00 Room Air 07/05/17 11:56 36.7 78 16 122/59 (80) 97 Room Air 07/05/17 08:39 81 22 154/78 (103) 96 Room Air 76 166/90 (115) 97 130/84 (99) 07/05/17 08:00 Room Air 07/05/17 04:00 Room Air 07/05/17 03:34 36.5 80 18 154/72 (99) 95 Room Air Review Cardiovascular: regular rate, rhythm, no edema, no JVD, no murmur Abdomen: normal bowel sounds, non tender, soft, no organomegaly Lungs: chest non-tender, lungs clear, normal breath sounds Pre-Sedation Airway Assessment Oral Cavity: Dentures Smoking Status: Never Smoker Mallampati Classification: Class III ASA Classification: Class III Procedure Planning Contraindications-for Mod Sed: None Yes Notes The planned sedation has been discussed with the patient and consent obtained. I have identified the patient, determined the appropriateness of sedation and have assessed the patient immediately prior to the procedure. All medicine(s) and interventions are by my order.
--- NOTE | 2017-07-05 13:02 | Procedure Note ---
Post-Mod Sedation Assessment General Date of Moderate Sedation Jul 05, 2017. Vital Signs: Vital Signs Past 12 Hours Date Time Temp Pulse Resp B/P (MAP) Pulse Ox O2 Delivery O2 Flow Rate FiO2 07/05/17 12:00 Room Air 07/05/17 11:56 36.7 78 16 122/59 (80) 97 Room Air 07/05/17 08:39 81 22 154/78 (103) 96 Room Air 76 166/90 (115) 97 130/84 (99) 07/05/17 08:00 Room Air 07/05/17 04:00 Room Air 07/05/17 03:34 36.5 80 18 154/72 (99) 95 Room Air Review - Discharge Criteria Vital Signs Stable: Yes Alert/Oriented/Conversant: Yes Returned to Baseline Mental St: Yes Nausea Absent/Minimal: Yes Pain/Discomfort/Absent/Minimal: Yes Normal/Baseline Respirations: Yes Active Bleeding?: No Pt Received D/C Instructions: N/A Prescriptions Given: None Specific Proced. D/C Criteria Distal Pulses Present (Cardiac: Yes Groin site assessed-Card Cath: N/A Voided Prior To Discharge: N/A Discharged Patients Adult Escort/Transportation: Yes
--- NOTE | 2017-07-05 14:53 | Surgery Consultation ---
Consultation Date of Service Jul 05, 2017. Chief Complaint R comm carotid stenosis, syncope History of Present Illness The patient is a 82 year old female with hx of HTN, DMII, DVT, admitted for eval after a single syncopal event which occurred a few days ago, seen in consultation today for R Comm carotid artery stenosis noted on imaging. Pt states she was standing on her neighbor's porch talking when she suddenly dropped to the ground with no warning. She denies prior similar events, amaurosis, facial droop, difficulty speaking or swallowing, PAR[place], fever, chills, SOB, chest pains, abd pain, N/V, rest pain, claudication, other complaints. Vitals Vital Signs Past 12 Hours Date Time Temp Pulse Resp B/P (MAP) Pulse Ox O2 Delivery O2 Flow Rate FiO2 07/05/17 12:00 Room Air 07/05/17 11:56 36.7 78 16 122/59 (80) 97 Room Air 07/05/17 08:39 81 22 154/78 (103) 96 Room Air 76 166/90 (115) 97 130/84 (99) 07/05/17 08:00 Room Air 07/05/17 04:00 Room Air 07/05/17 03:34 36.5 80 18 154/72 (99) 95 Room Air Allergies Coded Allergies: Statins (Verified Allergy, Unknown, muscle pain,weakness, 06/04/17) Home Medications Scheduled Cholecalciferol (Vitamin D), 1 TAB PO BID Cyanocobalamin (Vitamin B-12), 1,000 MCG PO DAILY Fenofibrate (Tricor), 1 TAB PO DAILY Lisinopril (Prinivil), 5 MG PO QPM Metformin Hcl (Glucophage), 850 MG PO TIDM Ranitidine (Zantac), 150 MG PO BID Warfarin Sodium (Warfarin Sodium), 5 MG PO MF Warfarin Sodium (Warfarin Sodium), 1 TAB PO UD Scheduled PRN Acetaminophen-Caffeine (Excedrin Tension Headache), PO DAILY PRN for Headache Problem List Medical Problems: (1) Chest pain (2) Diabetes (3) Diabetes (4) HTN (hypertension) (5) Hypercholesteremia (6) Hypertension Surgical / Medical History Hx Cardiac Surgery: No Hx Abdominal Surgery: Yes (APPENDIX) Hx Cancer Surgery: No Hx Thoracic Surgery: No Hx Orthopedic: No Hx Urinary Tract Surgery: No HX Other Surgery: Yes (OVARY REMOVED, LEFT BREAST BIOPSY) Past Medical/Surgical History: Diabetes, Hypertension Family History Patient reports no known family medical history. Social History Smoking Status: Never Smoker Hx Tobacco Use In Past Year?: No Hx Alcohol Use - Type & Amnt: No Hx Substance Use -Type & Amnt: No Review of Systems Constitutional: No chills, No fever, No malaise Skin: No change in color Eyes: No visual changes ENMT: No sore throat Respiratory: No cough, No HERNANDEZ, No hemoptysis, No short of breath Cardiovascular: No chest pain, No palpitations, No syncope, No edema, No intermittent claudication Gastrointestinal: No abdominal pain, No nausea, No vomiting Genitourinary - Female: No dysuria Neurologic: + LOC, No dizziness, No weakness, No headache, No numbness, No tingling Physical Exam Constitutional: General Apperance: heathly-appearing, well-nourished, well-developed Level of Distress: NAD Psychiatric: Mental Status: active & alert, normal mood, normal affect Orientation: oriented except where noted, to time, to place, to person Memory: recent memory normal, remote memory normal Head: normocephalic, atraumatic Eyes: EOM: EOMI ENMT: normal ENT inspection, hearing grossly normal Neck: supple, trachea midline Lungs: Respiratory effort: no dyspnea Auscultation: no rales/crackles, no rhonchi Cardiovascular: Apical Impulse: not displaced Heart Auscultation: RRR, no rubs, no gallops Peripheral Pulses: Pulses: full and equal, in all extremities except if noted Bruits: none appreciated Carotid Pulse: normal on the left Brachial Pulses: normal on the left, normal on the right Radial Pulse: normal on the left, normal on the right Femoral Pulse: normal on the left, normal on the right Posterior Tibialis Pulse: decreased on the left, decreased on the right Dorsalis Pedis Pulse: decreased on the left, decreased on the right Abdomen: Bowel Sounds: normal Inspection & Palpation: soft, non-distended, no tenderness, guarding & rebound Musculoskeletal: normal strength (5/5 throughout), normal tone Extremities: Upper Right: no cyanosis, no edema, no varicosities Upper Left: no cyanosis, no edema, no varicosities Lower Right: no cyanosis, no varicosities, no palpable cord, edema (trace) Lower Left: no cyanosis, no varicosities, no palpable cord, edema (trace) Neurologic: Cranial Nerves: grossly intact Sensation: grossly intact Assessment and Plan ASSESSMENT and PLAN: R common carotid artery occlusion Syncopal event Pt currently being worked up cardiologically and did appear to be orthostatic. Pt also seen by Dr Rodríguez, does not recommend vascular surgical intervention at this time. Will reevaluate in office with US in 6 months. Please call if needed otherwise.
--- NOTE | 2017-07-05 15:01 | DOBUTAMINE ECHO ---
*NOTICE TO RECEIVING [employer] This information is strictly Confidential and protected under [place] law. [place] law prohibits you from making any further disclosure of this information unless further disclosure is expressly permitted by the written consent of the person to whom it pertains or is authorized by law. A general authorization for the release of medical or other information is not sufficient for this purpose. Hospital accepts no responsibility if the information is made available to any other person, INCLUDING THE PATIENT. Interpretation Summary * Name: TAD BAEZ Study Date: 07/05/2017 11:04 AM BP: 157/69 mmHg * Patient Location: .2E\S\E210\S\1 HR: 78 * : 1935 (M/d/yyyy) Gender: Female Height: 63 in * Age: 82 yrs Ethnicity: CA Weight: 162 lb * Ordering Physician: Ganga Lomas * Referring Physician: Self, Referred * Performed By: Arnulfo Luu RCS * * Reason For Study: Chest Pain * BSA: 1.8 m2 * -- Conclusions -- * STRESS STUDY: * Normal pharmacologic stress echocardiogram. * No echocardiographic or EKG evidence of myocardial ischemia having achieved heart rate adequate for diagnostic purposes. * The blood pressure and heart rate responses were normal. * The patient's presenting symptoms of chest pain were not reproduced. Procedure Details * DOBUTAMINE ECHO, CPT#10855 * A contrast injection of Definity was performed to improve assessment of LV function. * Contrast was injected into an intravenous site in the right arm. * One vial of Definity ultrasound contrast was diluted in normal saline to a total volume of 10 ml. A total of '3' ml of solution was administered during imaging. * Lot # [id number] of Definity utilized for procedure. * Expiration date 1DEC18. * The attending nurse who injected the contrast agent was Joselyn Sumner RN. Left Ventricle * The left ventricle is normal in size. There is borderline concentric left ventricular hypertrophy. The resting LV Ejection Fraction = 55-60%. * Resting wall motion: Normal. Stress wall motion: Appropriate increase in Left ventricular systolic function and decrease in cavity size. No stress induced segmental wall motion abnormalities. Stress Parameters * The baseline EKG reveals sinus rhythm at [address] segments are normal on the resting EKG. * The stress EKG was negative for ischemia. Frequent PACS were present during pharmacologic stress , that resolved with discontinuation of dobutamine infusion. * The stress portion of this study was personally supervised by the undersigned interpreting physician. * Rest heart rate was '78' BPM. * Rest blood pressure was '157/69' * Maximum heart rate achieved was 126 bpm. * Maximum heart rate was 90 % of maximum age-predicted heart rate. * Maximum blood pressure was '157/69' * Maximum Dobutamine infusion rate was '30' mcg/kg/min. * Dobutamine infusion was terminated due to achieving target heart rate * A total of 2.5 mg of IV Metoprolol was administered to reverse Dobutamine-induced tachycardia. * The patient did not exhibit any symptoms during drug infusion.
--- NOTE | 2017-07-05 15:16 | Discharge Instructions ---
Discharge Instructions Date of Service Jul 05, 2017. Admission Reason for Admission: Chest Pain Discharge Discharge Diagnosis / Problem: CHEST PAIN -NO ACUTE CORONARY EVENT , CAROTID ARTERY STENOSIS Discharge Goals Goal(s): Diagnostic testing, Therapeutic intervention Activity Recommendations Activity Limitations: resume your previous activity . Instructions / Follow-Up Instructions / Follow-Up HOSPITAL FOLLOW UP : 07/13/2017 1:20 PM Elizabeth Ma MD General Internal Medicine [facility] FOLLOW UP WITH VASCULAR SURGERY DR DAVIDSON IN 6 MONTHS WILL NEED REPEAT CAROTID ULTRASOUND IN 6 MONTHS PRIOR TO OFFICE VISIT Current Hospital Diet Patient's current hospital diet: AHA Diet (Heart Healthy), Diabetes Type 2 Diet Discharge Diet Recommended Diet: AHA Diet (Heart Healthy), Diabetes Type 2 Diet Pending Studies Studies pending at discharge: no Laboratory Results Hemoglobin A1c Test 07/05/17 06:31 Range/Units Estimated Average Glucose 134 mg/dl Hemoglobin A1c 6.3 H 4.5-5.6 % Lipid Panel Test 07/05/17 06:31 Range/Units Triglycerides Level 213 H 0-150 mg/dl Cholesterol Level 262 H 0-200 mg/dl HDL Cholesterol 49 mg/dl Cholesterol/HDL Ratio 5.3 LDL Cholesterol, Calculated 170 mg/dl Medical Emergencies . Who to Call and When: Medical Emergencies: If at any time you feel your situation is an emergency, please call 911 immediately. . Non-Emergent Contact Non-Emergency issues call your: Primary Care Provider . . "Provider Documentation" section prepared by Gabrielle Herron. . VTE Core Measure Inpt VTE Proph given/why not?: Warfarin (Coumadin)
--- NOTE | 2017-07-05 15:23 | Discharge Summary ---
Discharge Summary Date of Service Jul 05, 2017. Discharge Summary Admission Date: Jul 04, 2017 at 16:24 Discharge Date: Jul 05, 2017 Discharge Disposition: Home Principal Diagnosis: CHEST PAIN -NO ACUTE CORONARY EVENT , CAROTID ARTERY STENOSIS Procedures: DOBUTAMINE STRESS TEST -NEGATIVE FOR STRESS INDUCED ANGINA CAROID ULTRASOUND IMPRESSION: The right common carotid artery is largely occluded except for the proximal most portion. Dampened collateral flow to the right internal carotid artery via the reversal of flow in the right external carotid artery. The right internal carotid artery remains patent and without significant stenosis. Left cervical vasculature patent without significant stenosis in the left common carotid or internal carotid arteries. RESTING 2 D ECHO : * Left ventricular systolic function is normal. * Ejection Fraction = 55-60%. * There is borderline concentric left ventricular hypertrophy. * Grade I diastolic dysfunction, (abnormal relaxation pattern). * Aortic valve sclerosis mild, without significant aortic valvular stenosis. * Mild aortic regurgitation. CHEST XRAY IMPRESSION: There are chronic appearing bibasilar airspace opacities, left greater than right. Correlate clinically for evidence of a superimposed infectious/inflammatory pneumonitis. CT HEAD WITH OUT CONTRAST : no acute intracranial pathology Consultations: [facility] CARDIOLOG[facility] VASCULAR SURGERY DR DAVIDSON Medication Reconciliation Continued Medications: Acetaminophen-Caffeine (Excedrin Tension Headache) 1 Tab Tab PO DAILY PRN for Headache Cholecalciferol (Vitamin D) 1,000 Unit Tab 1 TAB PO BID Cyanocobalamin (Vitamin B-12) 1,000 Mcg Tab 1000 MCG PO DAILY, TAB Fenofibrate (Tricor) 160 Mg Tab 1 TAB PO DAILY Lisinopril (Prinivil) 5 Mg Tab 5 MG PO QPM, TAB Metformin Hcl (Glucophage) 850 Mg Tab 850 MG PO TIDM, TAB Ranitidine (Zantac) 150 Mg Tab 150 MG PO BID, TAB Warfarin Sodium (Warfarin Sodium) 5 Mg Tab 5 MG PO MF, TAB 1 Refill Warfarin Sodium (Warfarin Sodium) 2 Mg Tab 1 TAB PO UD Referrals At Discharge Follow up Referrals: Surgery Referral - Within 6 Months with Rodriguez Davidson M.D. 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 last Sunday at she was talking to her Neighbor on the driveway -she said she blacked out and fell on the ground , does not recall hitting her head or having injury anywhere denies of having chest pressure , SOB , dizzy spell , nausea prior to fall , her neighbors helped her to get up , she said she did not feel weak , or confused , She walked back to her house , did not seek any medical attention reviewing pt's medical records -Hx of Fe deficiency/Microcytic anemia ; out pt stool Heme occult was positive -EGD /Colonoscopy done on 06/21/17 showed no evidence of GI bleed, evidence of gastritic in stomach and duodenum,-pathology : chronic gastritis , Immunostain negative for H Pylori Colonoscopic eval showed adenomatous polyp pt was scheduled for Out pt cardiac stress test for her ongoing symptoms of chest heaviness Exercise stress test could not be scheduled due to Anemia /poor exercise tolerance Pt was seen at [facility] office today EGG done in office showed no ischemic change due to concern for ongoing chest tightness /recent Syncope -pt was asked to come to ER for detail cardiac work up pt was chest pain free in ER during my evaluation , continued feel dizzy and lightheaded when she stood up Orthostatic BP check shows hypotension with change of position Supine 168/83 ; Sitting 153/77 ; Standing 112/77 Physical Exam (per Admitting): General Appearance: no apparent distress Head: normocephalic, atraumatic Eyes: normal inspection, PERRL, EOMI, sclerae normal ENT: normal ENT inspection, hearing grossly normal, pharynx normal Neck: thyroid normal, no carotid bruits Respiratory/Chest: chest non-tender, lungs clear, normal breath sounds, no respiratory distress Cardiovascular: regular rate, rhythm, no edema, no gallop, no JVD, no murmur , normal peripheral pulses Abdomen/GI: normal bowel sounds, non tender, soft Extremities/Musculoskelatal: normal inspection, no calf tenderness, normal capillary refill, no pedal edema, normal range of motion Neurologic/Psych: no motor/sensory deficits, alert, normal mood/affect, oriented x 3 Skin: normal color, warm/dry, no rash Lymphatic: no adenopathy Hospital Course no complain of chest pain or SOB no dizzy spell or lightheadedness Dobutamine stress echo negatived evaluated by vascular surgery , no emergent vascular procedure needed for Carotid artery disease out pt follow up in 6 months , repeat USG of carotids to assess level of stenosis P/E: GEN ; well appearing female, no sign of distress HEENT: sclera non icteric, PERRLA/EOMI HT: regular S1/S2 Lungs; CTA ABDOMEN : soft, non tender EXT : no lower ext edema NEURO: no focal deficit , AAO x3 CHEST PAIN : symptom has resolved , atypical for angina appreciate Cardiology eval Dobutamine stress test -negative for stress induced ischemia CAROTID ARTERY DISEASE : carotid Doppler : advance atherosclerotic disease with complete occlusion of Rt ICA ,. moderate atherosclerotic narrowing on left appreciate input form vascular surgery recommend out pt follow up in 6 months , repeat USG of carotid prior to 6 months follow up pt already on Coumadin with therapeutic INR additional antiplatelets no added -given recent EDG evidence of peptic ulcer disease , chronic Fe deficiency /microcytic anemia HYPONATREMIA /ORTHOSTATIC HYPOTENSION : corrected with IVF GERD : EGD 06/21/17 : normal Esophagus , multiple Erosions noted on in gastric antrum with no evidence of active bleeding , few Erosions with out evidence of active bleeding noted in Ist part of the duodenum pathology: chronic gastritis, negative for H.pylori , negative metaplasia pt denies of taking any NSAID's /no Aspirin On H2 stefani -ranitidine-continued added PPI CHRONIC FE DEFICIENCY ANEMIA : recent Fe study showed low Fe , ferritin level EGD /Colonoscopy -no evidence of GI bleed cont Fe supplement /vit C Hb 9.6 improved form recent out pt lab of Hb 8.9 monitor H&H HX OF DVT : hx of DVT in lower ext in 2000 , has been on Coumadin since INR therapeutic HYPERLIPIDEMIA : hx of statin intolerance Cont fenofibrate Fasting lipid panel shows poorly controlled lipid profile with elevated LDL given evidence of Carotid atherosclerosis , pt will benefit with addition of Stain every alternate day to have goal of LDL < 70 pt will be followed with Cardiology addition of statin will be done as out pt as per Cardiology HTN : BP stable Lisinopril resumed COLON POLYP : Colonoscopy 06/21 17 -showed colonic polyp , pathology : Tubular Adenoma Family hx of Colonic polyp needs close surveillance repeat Coloscopy in 5 years or earlier as per GI recommendation TYPE 2 DM : Hb a1c ~6 well controlled cont Medomin FULL CODE DVT PROPHYLAXIS : Coumadin DISPOSITION : stable to be discharged home today Medicine follow up with Dr Elizabeth Ma at [facility] Cardiology follow up with Dr Marin Discharge Instructions Discharge Instructions Date of Service Jul 05, 2017. Admission Reason for Admission: Chest Pain Discharge Discharge Diagnosis / Problem: CHEST PAIN -NO ACUTE CORONARY EVENT , CAROTID ARTERY STENOSIS Discharge Goals Goal(s): Diagnostic testing, Therapeutic intervention Activity Recommendations Activity Limitations: resume your previous activity . Instructions / Follow-Up Instructions / Follow-Up HOSPITAL FOLLOW UP : 07/13/2017 1:20 PM Elizabeth Ma MD General Internal Medicine [facility] FOLLOW UP WITH VASCULAR SURGERY DR DAVIDSON IN 6 MONTHS WILL NEED REPEAT CAROTID ULTRASOUND IN 6 MONTHS PRIOR TO OFFICE VISIT Current Hospital Diet Patient's current hospital diet: AHA Diet (Heart Healthy), Diabetes Type 2 Diet Discharge Diet Recommended Diet: AHA Diet (Heart Healthy), Diabetes Type 2 Diet Pending Studies Studies pending at discharge: no Laboratory Results Hemoglobin A1c Test 07/05/17 06:31 Range/Units Estimated Average Glucose 134 mg/dl Hemoglobin A1c 6.3 H 4.5-5.6 % Lipid Panel Test 07/05/17 06:31 Range/Units Triglycerides Level 213 H 0-150 mg/dl Cholesterol Level 262 H 0-200 mg/dl HDL Cholesterol 49 mg/dl Cholesterol/HDL Ratio 5.3 LDL Cholesterol, Calculated 170 mg/dl Medical Emergencies . Who to Call and When: Medical Emergencies: If at any time you feel your situation is an emergency, please call 911 immediately. . Non-Emergent Contact Non-Emergency issues call your: Primary Care Provider . . "Provider Documentation" section prepared by Gabrielle Herron. . VTE Core Measure Inpt VTE Proph given/why not?: Warfarin (Coumadin) Additional Copies To Elizabeth Ma M.D. Ganga Lomas, DO
[2017-07-05 15:32] VITALS: BP 122/59; PULSE 78; TEMP 36.7; O2SAT 97
[2017-07-05] MEDS ORDERED: WARFARIN SOD 2 MG TAB PO SCH (16:00)
== END 2017-07-05 15:47 | disposition home or self-care (01) ==
LOC: C.EDB 13:26 → C.2E 16:24 → ENRESERV 17:03
PROVIDERS: ADMIT Hospitalist; ATTEND Hospitalist
DX: R07.2 Precordial pain (principal); R55 Syncope and collapse; Z79.01 Long term (current) use of anticoagulants; R06.02 Shortness of breath; I65.23 Occlusion and stenosis of bilateral carotid arteries; Z79.899 Other long term (current) drug therapy; I10 Essential (primary) hypertension; Z86.718 Personal history of other venous thrombosis and embolism; K21.9 Gastro-esophageal reflux disease without esophagitis; D50.9 Iron deficiency anemia, unspecified; E78.5 Hyperlipidemia, unspecified; E11.9 Type 2 diabetes mellitus without complications

== ENCOUNTER 2018-03-24 04:05 | Inpatient (IN) | payer BC, OTHER ==
[2018-03-24] VITALS (54 sets, daily range): BP systolic 95–173; BP diastolic 54–96; PULSE 67–91; TEMP 36.7–37.4; O2SAT 83–100; BMI 28.2
[~2018-03-24] VITALS: Ht 160 cm; Wt 72.1 kg
[~2018-03-24 04:05] MED LIST changes: -CMD/1 PO; +CYAN10005 PO; +FENO1TAB PO; +RANI150T85 PO; +WARF4TAB43 PO; -ZNTT/150 PO
[2018-03-24] MEDS ORDERED: SODIUM CHLORIDE 0.9% 1000ML 1,000 ML IV STA (04:34)
[2018-03-24] MEDS ORDERED: ONDANSETRON INJ 2 MG/ML 2 ML VIAL IV STA (04:34)
--- NOTE | 2018-03-24 04:40 | EMERGENCY ROOM VISIT NOTE ---
History Report prepared by Jessica: Ganga Baron Under the Supervision of: Dr. Bertha Toribio D.O. First contact with patient: 04:14 Chief Complaint: VOMITING Stated Complaint: VOMITING History of Present Illness The patient is an 82 year old female who presents to the Emergency Room with complaints of intermittent vomiting and diarrhea for the past week. Patient states she also has had abdominal pain and nausea. She adds she has had jaundiced skin for the past 2 days. Patient states she came to the ER tonight because she was feeling lightheaded and like she was going to pass out. She states she still has nausea in the ER. Patient denies a history of jaundice or drinking alcohol. Past medical history includes diabetes and hypertension. She states she is on Coumadin. Patient denies losing weight recently. Patient's PCP is Dr. Ma. Past surgical history includes a cyst removal. Patient states she still has a gallbladder. Source of History: patient Onset: A week ago Position: head, abdomen Timing: intermittent Modifying Factors (Relieving): other (None) Associated Symptoms: + nausea, + abdominal pain Note: Positive lightheadedness. Review of Systems See HPI for pertinent positives & negatives. A total of 10 systems reviewed and were otherwise negative. 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 Social History Smoking Status: Never Smoker Marital Status: Housing Status: lives with significant other Occupation Status: retired Current/Historical Medications Scheduled Cholecalciferol (Vitamin D), 1 TAB PO BID Ferrous Sulfate (Iron), Unknown Dose PO BID Lisinopril (Prinivil), 5 MG PO QPM Metformin Hcl (Glucophage), 850 MG PO TIDM Ranitidine (Zantac), 150 MG PO BID Warfarin Sodium (Coumadin), 7 MG PO WK Warfarin Sodium (Coumadin), 5 MG PO [id number] Scheduled PRN Acetaminophen-Caffeine (Excedrin Tension Headache), PO DAILY PRN for Headache Allergies Coded Allergies: Statins (Verified Allergy, Unknown, muscle pain,weakness, 03/24/18) Physical Exam Vital Signs Date Time Temp Pulse Resp B/P (MAP) Pulse Ox O2 Delivery O2 Flow Rate FiO2 03/24/18 07:15 81 21 95 03/24/18 07:10 80 19 95 03/24/18 07:05 80 12 96 03/24/18 07:01 106/61 03/24/18 07:00 82 13 95 03/24/18 06:55 83 20 96 03/24/18 06:52 135/68 03/24/18 06:35 78 03/24/18 06:30 76 12 97 03/24/18 06:25 77 15 96 03/24/18 06:20 77 13 94 03/24/18 06:15 91 24 95 03/24/18 06:10 77 16 96 03/24/18 06:01 125/61 03/24/18 06:00 75 24 95 03/24/18 05:55 77 21 95 03/24/18 05:50 76 18 94 03/24/18 05:45 73 14 93 03/24/18 05:40 73 20 95 03/24/18 05:35 74 18 107/59 96 Room Air 03/24/18 05:35 77 20 96 03/24/18 05:31 107/59 03/24/18 05:30 78 17 94 03/24/18 05:25 73 19 98 03/24/18 05:24 107/58 03/24/18 04:45 79 15 96 03/24/18 04:40 78 21 94 03/24/18 04:25 78 03/24/18 04:08 36.5 90 20 86/56 95 Room Air Physical Exam HEENT: Head - normocephalic and atraumatic Pupils are equal, round, and reactive to light. Extraocular eye muscles are intact, and sclera are significantly icteric. Nose - moist nasal mucosa without discharge. Mouth - dry buccal mucosa. Oropharynx is nonerythematous and there is no tonsillar exudate or edema noted. Neck: Supple; no JVD, nuchal rigidity, cervical lymphadenopathy, or auscultated bruits. Heart: Regular rate and rhythm. There is a normal S1 and S2 with no murmurs, clicks, or gallops appreciated. Lungs: Clear to auscultation bilaterally with no wheezes, rales, or rhonchi. Abdomen: Soft, pain in epigastric region with palpation, nondistended, with good bowel sounds. There are no palpable pulsatile masses or hepatosplenomegaly. There is no guarding, rigidity, or rebound noted. Extremities: No evidence of cyanosis, clubbing, or edema. There are easily palpable peripheral pulses. Skin: warm and dry with poor turgor and no rashes. Significant jaundice Medical Decision & Procedures ER Provider Diagnostic Interpretation: Radiology results as stated below per my review and the radiologist's interpretation: US GALLBLADDER: Impression: Heterogeneous echotexture is seen in the pancreas. Recommend correlation for pancreatitis. Common bile duct measures up to 1.2cm. The gallbladder is distended but otherwise appears normal without evidence of acute cholecystitis. There is mild cortical thinning of the right kidney which may be related to medical renal disease. Ascites or pleural effusion along the right lobe of the liver. Radiologist: Mal Michel MD CT OF THE ABDOMEN AND PELVIS WITH CONTRAST CLINICAL HISTORY: Vomiting. Jaundice. Evaluate for hepatic mass or pancreatitis. COMPARISON STUDY: CT of the abdomen and pelvis February 27, 2015. TECHNIQUE: Following IV administration of 94 mL of Optiray-320, axial images of the abdomen and pelvis were obtained from the lung bases to the proximal femurs. Images were reviewed in the axial, sagittal, and coronal planes. IV contrast was administered without complication. A dose lowering technique was utilized adhering to the principles of ALARA. CT DOSE: 422.70 mGy.cm FINDINGS: The visualized portions of the ascending aorta are mildly dilated, measuring 4.2 cm. Heart is moderately enlarged. Extensive coronary artery calcification is noted. Interstitial thickening is noted within the lungs which may reflect a combination of interstitial lung disease and atelectasis. No hepatic lesions are present. There are calcified granulomas within the spleen. The adrenal glands and kidneys are unremarkable. There is no hydronephrosis. There is minimal dilatation of the main pancreatic duct which measures 4 mm in caliber. Moderate intra and extrahepatic biliary ductal dilatation is noted. The common bile duct measures 1.5 cm in caliber. There is abrupt narrowing of the distal common bile duct within the region of the pancreatic head. A well-defined mass is not identified however the findings are suspicious for an occult lesion. There is mild heterogeneity within the pancreatic head. There is no peripancreatic infiltration. The superior mesenteric vein and portal vein are patent. SMA is not involved. Gallbladder is mildly distended. There is no pericholecystic infiltration. No suspicious osseous lesions are present. There is no adenopathy. A splenule is noted. There is no ascites. IMPRESSION: 1. Moderate biliary ductal dilatation with abrupt cut off of the distal common bile duct. Minimal pancreatic ductal dilatation. Mild heterogeneity within the region of the pancreatic head without well-defined mass. The findings are suspicious for an occult neoplasm such as pancreatic adenocarcinoma or ampullary lesion. An occult common bile duct calculus could result in similar findings. GI consultation is recommended. 2. Moderate dilatation of the gallbladder. Trace pericholecystic fluid. 3. Interstitial thickening within the lower lungs which favors interstitial lung disease. Electronically signed by: Fernando Arboleda M.D. 03/24/2018 7:08 AM Laboratory Results Test 03/24/18 04:20 03/24/18 06:16 Immature Granulocyte % (Auto) 0.2 % White Blood Count 9.32 K/uL (4.8-10.8) Red Blood Count 3.08 M/uL (4.2-5.4) Hemoglobin 8.9 g/dL (12.0-16.0) Hematocrit 25.9 % (37-47) Mean Corpuscular Volume 84.1 fL (80-100) Mean Corpuscular Hemoglobin 28.9 pg (25-34) Mean Corpuscular Hemoglobin Concent 34.4 g/dl (32-36) Platelet Count 284 K/uL (130-400) Mean Platelet Volume 11.5 fL (7.4-10.4) Neutrophils (%) (Auto) 61.4 % Lymphocytes (%) (Auto) 27.3 % Monocytes (%) (Auto) 6.5 % Eosinophils (%) (Auto) 4.1 % Basophils (%) (Auto) 0.5 % Neutrophils # (Auto) 5.72 K/uL (1.4-6.5) Lymphocytes # (Auto) 2.54 K/uL (1.2-3.4) Monocytes # (Auto) 0.61 K/uL (0.11-0.59) Eosinophils # (Auto) 0.38 K/uL (0-0.5) Basophils # (Auto) 0.05 K/uL (0-0.2) Immature Granulocyte # (Auto) 0.02 K/uL (0.00-0.02) Target Cells 1+ Troponin I < 0.015 ng/ml (0-0.045) Lipase 4260 U/L (73-393) Activated Partial Thromboplast Time 71.3 SECONDS (21.0-31.0) Partial Thromboplastin Ratio 2.7 Laboratory results per my review. Medications Administered Medications (Trade) Dose Ordered Sig/Lucy Route Start Time Stop Time Status Last Admin Dose Admin Ondansetron HCl (Zofran Inj) 4 mg NOW STAT IV 03/24/18 04:34 03/24/18 04:37 DC 03/24/18 04:43 4 MG Sodium Chloride 1,000 ml @ 999 mls/hr Q1H1M STAT IV 03/24/18 04:34 03/24/18 05:34 DC 03/24/18 04:43 999 MLS/HR Procedure Sodium Chloride 1000 ml @ 999 mls/hr IV, Zofran Inj 4mg IV ECG Per My Interpretation Indication: vomiting Rate (beats per minute): 85 Rhythm: normal sinus Findings: no acute ischemic change, no ectopy, other (No ST segment changes) ED Course 0419: Past medical records reviewed. The patient was evaluated in room B2. A complete history and physical exam was performed. An IV lock was initiated and labs were drawn as above. 0434: Sodium Chloride 1000 ml @ 999 mls/hr IV and Zofran Inj 4mg IV. The patient went for ultrasound to further evaluate the common bile duct, gallbladder and pancreas. 0615: I reevaluated the patient and discussed her US findings with her. Patient states her stools have been as black as the "adalberto of spades". I performed a heme test on her stool and they are Hemoccult positive. We continue to wait her coag results. 0630: The patient went for CT scan of the abdomen/pelvis as described above. 0632: Upon reevaluation, I discussed findings and results with her. She verbalized agreement of the treatment plan. I spoke with Dr. Leigh of the [facility]ist Service. The patient will be evaluated for further management and care. 0720: I discussed the case with Dr. Herron who is in the process of ordering vitamin K and K [facility]. Medical Decision The patient is a 82 year old female who presents to the ED with intermittent vomiting and diarrhea. Differential diagnosis includes pancreatitis, pancreatic tumor, cholecystitis, and choledocholithiasis. Lab results show WBC = 9.3, hemoglobin = 8.9, sodium = 132, BUN = 27, glucose = 220, total bilirubin = 7.1, direct bilirubin = 6.0, AST = 238, ALT = 337, alc phos = 423, lipase = 4260, and negative troponin. This is an 82-year-old female patient who presents to the emergency department vomiting and diarrhea and severe jaundice. Patient does describe some epigastric and right upper quadrant abdominal pain associated with her above symptoms for the past couple days. She appears quite dehydrated on physical exam. Ultrasound is concerning for pancreatitis and/or obstruction of the common bile duct. CT scan was performed and is concerning for possible neoplasm of the pancreas with an obstructed common bile duct. I discussed the case with the [facility] service and they will evaluate the patient for further management. The patient got significant relief of her symptoms with the IV fluids and Zofran. Dr. Herron had discussed the case with the arch support maker and they were hoping to reverse her elevated INR and do ERCP. The patient remained hemodynamically stable throughout her stay here in the emergency department. She was noted to be anemic with hemoglobin of 8.9. The patient states that she has a history of this. Medication Reconcilliation Current Medication List: was personally reviewed by me Blood Pressure Screening Patient's blood pressure: Normal blood pressure Blood pressure disposition: Did not require urgent referral Consults Time Called: 619 Consulting Physician: Dr. Leigh - [facility] Returned Call: 06 Discussed the patient's case. The patient will be evaluated for further management. Impression Primary Impression: Pancreatitis Additional Impressions: GI bleed Supratherapeutic INR Scribe Attestation The scribe's documentation has been prepared under my direction and personally reviewed by me in its entirety. I confirm that the note above accurately reflects all work, treatment, procedures, and medical decision making performed by me. Departure Information Dispostion Being Evaluated By Hospitalist Referrals Elizabeth Ma M.D. (PCP) Forms HOME CARE DOCUMENTATION FORM, IMPORTANT VISIT INFORMATION Patient Instructions My [facility] Problem Qualifiers Primary Impression: Pancreatitis Chronicity: acute Pancreatitis type: biliary Acute pancreatitis complication: no infection or necrosis Qualified Codes: K85.10 - Biliary acute pancreatitis without necrosis or infection Additional Impressions: GI bleed GI bleed type/associated pathology: unspecified gastrointestinal hemorrhage type Qualified Codes: K92.2 - Gastrointestinal hemorrhage, unspecified
[2018-03-24 04:47] LABS: BASO % 0.5 %; BASO ABS # 0.05 K/uL (0-0.2); EOS % 4.1 %; EOS ABS # 0.38 K/uL (0-0.5); HEMATOCRIT 25.9 % (37-47); HEMOGLOBIN 8.9 g/dL (12.0-16.0); IG# 0.02 K/uL (0.00-0.02); LYMPH % 27.3 %; LYMPH ABS # 2.54 K/uL (1.2-3.4); MEAN CELL VOLUME 84.1 fL (80-100); MEAN CORPUSCULAR HEMOGLOBIN 28.9 pg (25-34); MEAN CORPUSCULAR HGB CONC 34.4 g/dl (32-36); MEAN PLATELET VOLUME 11.5 fL (7.4-10.4); MONO % 6.5 %; MONO ABS # 0.61 K/uL (0.11-0.59); NEUT % 61.4 %; NEUT ABS # 5.72 K/uL (1.4-6.5); PLATELET COUNT 284 K/uL (130-400); RED CELL DISTRIBUTION WIDTH CV 16.1 % (11.5-14.5); RED CELL DISTRIBUTION WIDTH SD 49.4 fL (36.4-46.3); WHITE BLOOD COUNT 9.32 K/uL (4.8-10.8)
[2018-03-24] MEDS ORDERED: WARF1TAB PO (04:55)
[2018-03-24] MEDS ORDERED: WARF5TAB90 PO (04:56)
[2018-03-24] MEDS ORDERED: FERR1TAB23 PO (04:57)
[2018-03-24 05:07] LABS: ALBUMIN 3.2 gm/dl (3.4-5.0); ALT/SGPT 337 U/L (12-78); AST/SGOT 238 U/L (15-37); BLOOD UREA NITROGEN 27 mg/dl (7-18); CALCIUM 9.3 mg/dl (8.5-10.1); CARBON DIOXIDE 18 mmol/L (21-32); CREATININE 1.15 mg/dl (0.60-1.20); GLUCOSE 220 mg/dl (70-99); POTASSIUM 4.9 mmol/L (3.5-5.1); SODIUM 132 mmol/L (136-145)
[2018-03-24 05:16] LABS: ALKALINE PHOSPHATASE 423 U/L (45-117); LIPASE 4260 U/L (73-393); TOTAL PROTEIN 6.9 gm/dl (6.4-8.2)
[2018-03-24] MEDS ORDERED: OPTIRAY 320 IV PRN (06:30)
[2018-03-24 06:52] LABS: INR > 10.0 (0.9-1.1); PTT PATIENT 71.3 SECONDS (21.0-31.0)
--- NOTE | 2018-03-24 06:58 | DIAGNOSTIC IMAGING REPORT ---
CT OF THE HEAD WITHOUT CONTRAST CLINICAL HISTORY: Dizziness. COMPARISON STUDY: Head CT July 04, 2017. CT DOSE: 614.27 mGy.cm TECHNIQUE: Helical axial images of the head were obtained without IV contrast. Automated exposure control was utilized for the study. A dose lowering technique was utilized adhering to the principles of ALARA. FINDINGS: No acute intracranial hemorrhage, midline shift or mass effect is present. Ventricular system is stable. Basilar cisterns are patent. There are no extra-axial collections. White matter hypodensity suggests small vessel disease. Findings to suggest acute dural sinus thrombosis or acute territorial infarct. There are no significant calvarial abnormalities. Visualized portions of the sinuses and mastoid air cells are clear. Note is made of a 1.3 cm left parotid gland lesion. IMPRESSION: 1. No acute intracranial findings. 2. 1.3 cm left parotid gland lesion. Nonemergent ENT consultation might be considered. Electronically signed by: Fernando Arboleda M.D. 03/24/2018 6:57 AM Dictated Date/Time: 03/24/2018 6:53 AM
--- NOTE | 2018-03-24 07:10 | DIAGNOSTIC IMAGING REPORT ---
CT OF THE ABDOMEN AND PELVIS WITH CONTRAST CLINICAL HISTORY: Vomiting. Jaundice. Evaluate for hepatic mass or pancreatitis. COMPARISON STUDY: CT of the abdomen and pelvis February 27, 2015. TECHNIQUE: Following IV administration of 94 mL of [id number]-[id number], axial images of the abdomen and pelvis were obtained from the lung bases to the proximal femurs. Images were reviewed in the axial, sagittal, and coronal planes. IV contrast was administered without complication. A dose lowering technique was utilized adhering to the principles of ALARA. CT DOSE: 422.70 mGy.cm FINDINGS: The visualized portions of the ascending aorta are mildly dilated, measuring 4.2 cm. Heart is moderately enlarged. Extensive coronary artery calcification is noted. Interstitial thickening is noted within the lungs which may reflect a combination of interstitial lung disease and atelectasis. No hepatic lesions are present. There are calcified granulomas within the spleen. The adrenal glands and kidneys are unremarkable. There is no hydronephrosis. There is minimal dilatation of the main pancreatic duct which measures 4 mm in caliber. Moderate intra and extrahepatic biliary ductal dilatation is noted. The common bile duct measures 1.5 cm in caliber. There is abrupt narrowing of the distal common bile duct within the region of the pancreatic head. A well-defined mass is not identified however the findings are suspicious for an occult lesion. There is mild heterogeneity within the pancreatic head. There is no peripancreatic infiltration. The superior mesenteric vein and portal vein are patent. SMA is not involved. Gallbladder is mildly distended. There is no pericholecystic infiltration. No suspicious osseous lesions are present. There is no adenopathy. A splenule is noted. There is no ascites. IMPRESSION: 1. Moderate biliary ductal dilatation with abrupt cut off of the distal common bile duct. Minimal pancreatic ductal dilatation. Mild heterogeneity within the region of the pancreatic head without well-defined mass. The findings are suspicious for an occult neoplasm such as pancreatic adenocarcinoma or ampullary lesion. An occult common bile duct calculus could result in similar findings. GI consultation is recommended. 2. Moderate dilatation of the gallbladder. Trace pericholecystic fluid. 3. Interstitial thickening within the lower lungs which favors interstitial lung disease. Electronically signed by: Fernando Arboleda M.D. 03/24/2018 7:08 AM Dictated Date/Time: 03/24/2018 6:57 AM
[2018-03-24] MEDS ORDERED: ONDANSETRON INJ 2 MG/ML 2 ML VIAL IV PRN ×2 (07:30→13:15)
[2018-03-24] MEDS ORDERED: PHYTONADIONE INJ 10 MG in SODIUM CHLORIDE 0.9% 50ML 50 ML IV ONE (07:30)
--- NOTE | 2018-03-24 07:39 | DIAGNOSTIC IMAGING REPORT ---
ABDOMINAL ULTRASOUND, RIGHT UPPER QUADRANT HISTORY: Jaundice. Abdominal pain. COMPARISON: CT of the abdomen and pelvis February 27, 2015. FINDINGS: No hepatic lesions are identified. Moderate intra and extrahepatic biliary ductal dilatation is noted. Common bile duct measures 1.6 cm in caliber. No common bile duct calculi are identified although distal common bile duct is obscured. There is slight dilatation of the main pancreatic duct which measures 3 mm in caliber. The pancreas is heterogeneous. No well-defined pancreatic mass is present. Gallbladder is moderately distended. No gallstones are identified. There is no gallbladder wall thickening. There is no right hydronephrosis. IMPRESSION: 1. Moderate biliary ductal dilatation and minimal dilatation of the main pancreatic duct. The findings are concerning for an occult pancreatic head/ampullary mass. Occult choledocholithiasis could result in similar findings. 2. Heterogeneity pancreas without well-defined mass. 3. Moderate gallbladder distention. No gallbladder wall thickening. No gallstones. Electronically signed by: Fernando Arboleda M.D. 03/24/2018 7:38 AM Dictated Date/Time: 03/24/2018 7:36 AM
[2018-03-24] MEDS ORDERED: GLUCOSE 10 TABS/TUBE PO PRN (07:45)
[2018-03-24] MEDS ORDERED: CARBOHYDRATES FOR HYPOGLYCEMIA PO PRN (07:45)
[2018-03-24] MEDS ORDERED: DEXTROSE 50% 50 ML SYR IV PRN (07:45)
[2018-03-24] MEDS ORDERED: GLUCAGON FOR INJ 1 MG VIAL SQ PRN (07:45)
[2018-03-24] MEDS ORDERED: GLUCOSE 40% GEL 15 GM TUBE PO PRN (07:45)
--- NOTE | 2018-03-24 07:49 | History and Physical ---
History & Physical Date & Time of Service: Mar 24, 2018 at 07:49 Chief Complaint: Vomiting Primary Care Physician: Elizabeth Ma M.D. History of Present Illness Source: patient This is a 82-year-old female with past medical history of lower extremity DVT, on chronic anticoagulation with Coumadin, history of GERD, chronic back pain, hyperlipidemia, type 2 diabetes Presented to ER with complaint of dizziness spell lightheadedness, feeling like passing out pt is a very poor historian Reports of increased fatigue/lack of energy/poor appetite for the past 2-3 months Denies of any weight loss Herself did not noticed having yellow color of skin and eye last Marvin her niece mentioned -she looks yellow could not confirm-how long patient been jaundiced Since yesterday patient was having nausea vomiting, Feeling poorly Head 2 episodes of dark tarry colored stool around 2-3 AM this morning In the ER: Lab work revealed hemoglobin 8.9/hematocrit 25.9 Normal MCV 80.4 Platelet count 284 INR more than 10 Chemistry: Sodium 132 BUN elevated 27/creatinine 1 Labs suggestive of obstructive jaundice, elevated direct bilirubin and transaminitis Total bilirubin 7.1 Direct bilirubin 6.0 AST 238 ALT [address] abdomen pelvis shows moderate biliary ductal dilatation with abrupt cutoff of the distal common bile duct. Minimal pancreatic ductal dilatation. Mild heterogenicity within the region of the pancreatic head without well- defined mass. These findings are suspicious for an occult neoplasm such as pancreatic adenocarcinoma or ampullary lesion Past Medical/Surgical History Medical Problems: (1) Anemia (2) Anticoagulated on Coumadin (3) Anxiety (4) Back pain (5) Back pain (6) Carotid artery narrowing (7) Chest pain (8) Diabetes (9) Diabetes (10) Dyspnea (11) HTN (hypertension) (12) Hypercholesteremia (13) Hypertension (14) Pancreatitis due to biliary obstruction (15) Pancreatitis due to obstruction of pancreatic duct (16) Precordial chest pain (17) Shortness of breath (18) Shortness of breath (19) Syncope Family History Patient reports no known family medical history. Social History Smoking Status: Never Smoker Marital Status: Occupational Status: retired Multi-Drug Resistant Organisms History of MDRO: No Allergies Coded Allergies: Statins (Verified Allergy, Unknown, muscle pain,weakness, 03/24/18) Home Medications Scheduled Cholecalciferol (Vitamin D), 1 TAB PO BID Ferrous Sulfate (Iron), Unknown Dose PO BID Lisinopril (Prinivil), 5 MG PO QPM Metformin Hcl (Glucophage), 850 MG PO TIDM Ranitidine (Zantac), 150 MG PO BID Warfarin Sodium (Coumadin), 7 MG PO WK Warfarin Sodium (Coumadin), 5 MG PO [id number] Scheduled PRN Acetaminophen-Caffeine (Excedrin Tension Headache), PO DAILY PRN for Headache Review of Systems Constitutional: + chills (Early this morning), + sweats (Early this morning), + weight loss, + weakness, + fatigue ENT: No hearing loss, No unusual epistaxis, No nasal symptoms, No sore throat, No tinnitus, No dental problems, No trouble swallowing, No problem reported Respiratory: + shortness of breath, + dyspnea on exertion Cardiovascular: + problem reported (Dizzy and lightheaded), No chest pain, No orthopnea, No PND, No edema, No claudication, No palpitations Abdomen: + nausea, + vomiting, + GI bleeding (Dark tarry stool) Genitourinary - Female: No dysuria, No urinary frequency, No urinary urgency, No urinary incontinence, No urinary retention, No hematuria, No dysmenorrhea, No menorrhagia, No metrorrhagia, No rash, No vaginal bleeding, No vaginal discharge, No vaginal itching, No vulvodynia, No , No problem reported Neurologic: + weakness, + vertigo, + balance problems (Any dizzy and lightheaded) Endocrine: + fatigue Physical Exam Vital Signs Date Time Temp Pulse Resp B/P (MAP) Pulse Ox O2 Delivery O2 Flow Rate FiO2 03/24/18 07:15 81 21 95 03/24/18 07:10 80 19 95 03/24/18 07:05 80 12 96 03/24/18 07:01 106/61 03/24/18 07:00 82 13 95 03/24/18 06:55 83 20 96 03/24/18 06:52 135/68 03/24/18 06:35 78 03/24/18 06:30 76 12 97 03/24/18 06:25 77 15 96 03/24/18 06:20 77 13 94 03/24/18 06:15 91 24 95 03/24/18 06:10 77 16 96 03/24/18 06:01 125/61 03/24/18 06:00 75 24 95 03/24/18 05:55 77 21 95 03/24/18 05:50 76 18 94 03/24/18 05:45 73 14 93 03/24/18 05:40 73 20 95 03/24/18 05:35 74 18 107/59 96 Room Air 03/24/18 05:35 77 20 96 03/24/18 05:31 107/59 03/24/18 05:30 78 17 94 03/24/18 05:25 73 19 98 03/24/18 05:24 107/58 03/24/18 04:45 79 15 96 03/24/18 04:40 78 21 94 03/24/18 04:25 78 03/24/18 04:08 36.5 90 20 86/56 95 Room Air General Appearance: no apparent distress Head: normocephalic, atraumatic Eyes: + abnormal sclerae exam (Deeply icteric sclera) ENT: normal ENT inspection Neck: supple, thyroid normal, trachea midline Respiratory/Chest: chest non-tender, lungs clear, normal breath sounds, no respiratory distress Cardiovascular: regular rate, rhythm, no edema Abdomen/GI: normal bowel sounds, non tender, soft Extremities/Musculoskelatal: no calf tenderness, no pedal edema, + pertinent finding (Skin icteric ) Neurologic/Psych: no motor/sensory deficits, alert Skin: + jaundice, + pertinent finding (deeply jaundiced ) Diagnostics Laboratory Results Results Past 24 Hours Test 03/24/18 04:20 03/24/18 06:16 03/24/18 07:29 Range/Units White Blood Count 9.32 4.8-10.8 K/uL Red Blood Count 3.08 4.2-5.4 M/uL Hemoglobin 8.9 12.0-16.0 g/dL Hematocrit 25.9 37-47 % Mean Corpuscular Volume 84.1 80-100 fL Mean Corpuscular Hemoglobin 28.9 25-34 pg Mean Corpuscular Hemoglobin Concent 34.4 32-36 g/dl Platelet Count 284 130-400 K/uL Mean Platelet Volume 11.5 7.4-10.4 fL Neutrophils (%) (Auto) 61.4 % Lymphocytes (%) (Auto) 27.3 % Monocytes (%) (Auto) 6.5 % Eosinophils (%) (Auto) 4.1 % Basophils (%) (Auto) 0.5 % Neutrophils # (Auto) 5.72 1.4-6.5 K/uL Lymphocytes # (Auto) 2.54 1.2-3.4 K/uL Monocytes # (Auto) 0.61 0.11-0.59 K/uL Eosinophils # (Auto) 0.38 0-0.5 K/uL Basophils # (Auto) 0.05 0-0.2 K/uL RDW Standard Deviation 49.4 36.4-46.3 fL RDW Coefficient of Variation 16.1 11.5-14.5 % Immature Granulocyte % (Auto) 0.2 % Immature Granulocyte # (Auto) 0.02 0.00-0.02 K/uL Target Cells 1+ Sodium Level 132 136-145 mmol/L Potassium Level 4.9 3.5-5.1 mmol/L Chloride Level 103 98-107 mmol/L Carbon Dioxide Level 18 21-32 mmol/L Anion Gap 11.0 3-11 mmol/L Blood Urea Nitrogen 27 7-18 mg/dl Creatinine 1.15 0.60-1.20 mg/dl Estimated GFR () 51.7 Estimated GFR (Non- 44.6 BUN/Creatinine Ratio 23.6 10-20 Random Glucose 220 70-99 mg/dl Calcium Level 9.3 8.5-10.1 mg/dl Total Bilirubin 7.1 0.2-1 mg/dl Direct Bilirubin 6.0 0-0.2 mg/dl Aspartate Amino Transf (AST/SGOT) 238 15-37 U/L Alanine Aminotransferase (ALT/SGPT) 337 12-78 U/L Alkaline Phosphatase 423 45-117 U/L Troponin I < 0.015 0-0.045 ng/ml Total Protein 6.9 6.4-8.2 gm/dl Albumin 3.2 3.4-5.0 gm/dl Lipase 4260 73-393 U/L Prothrombin Time > 100.0 9.0-12.0 SECONDS Prothromb Time International Ratio > 10.0 0.9-1.1 Activated Partial Thromboplast Time 71.3 21.0-31.0 SECONDS Partial Thromboplastin Ratio 2.7 Microbiology Results 03/24/18 Blood Culture, Ordered Pending 03/24/18 Blood Culture, Ordered Pending Diagnostic Radiology CT ABDOMEN/PELVIS WITH CONTRAST : IMPRESSION: 1. Moderate biliary ductal dilatation with abrupt cut off of the distal common bile duct. Minimal pancreatic ductal dilatation. Mild heterogeneity within the region of the pancreatic head without well-defined mass. The findings are suspicious for an occult neoplasm such as pancreatic adenocarcinoma or ampullary lesion. An occult common bile duct calculus could result in similar findings. GI consultation is recommended. 2. Moderate dilatation of the gallbladder. Trace pericholecystic fluid. 3. Interstitial thickening within the lower lungs which favors interstitial lung disease. ABDOMEN RIGHT UPPER QUADRANT ULTRASOUND: 1. Moderate biliary ductal dilatation and minimal dilatation of the main pancreatic duct. The findings are concerning for an occult pancreatic head/ ampullary mass. Occult choledocholithiasis could result in similar findings. 2. Heterogeneity pancreas not well defined mass. 3. Moderate gallbladder distention. No gallbladder wall thickening. No gallstones CT HEAD WITHOUT CONTRAST 1. No acute intracranial findings. 2. 1.3 cm left parotid gland lesion. Non-emergent ENT consultation might be considered ERCP Impression: Fluoroscopic images demonstrate a distal common bile duct stricture , biliary ductal dilatation and placement of a common bile duct stent EKG EKG: Normal sinus rhythm, heart rate 85 bpm Left anterior fascicular block QTC 430 When compared with EKG of 07/04/2017 Premature atrial complexes are no longer present Impression Assessment and Plan OBSTRUCTIVE JAUNDICE Presented with weeks of weakness /fatigue /poor appetite presents with Jaundice with elevated liver enzymes/coagulopathy with INR > 10 CT abdomen /pelvis shows CBD ductal dilatation and obstruction possible due to mass at Head of pancreas GI consulted , appreciate input pt given 10 mg IV K /2 units of FFP INR 1.2 underwent ERCP today shows : distal common bile duct stricture, biliary ductal dilatation s/p placement of a common bile duct stent purulent biliary drainage noted during ERCP No evidence of Sepsis -normal white count, normal lactic , pro calcitonin level meets SIRS criteria in setting of obstructive cholangitis , pancreatitis / likely pancreatic mass /GI bleed ordered empiric Abx with IV Zosyn blood cultures ordered pt will be kept NPO will need EUS /Biopsy of mass in AM DIZZY SPELLS/LIGHTHEADED ILLNESS possible due to anemia /dehydration CT Head without contrast no acute change /or Hge cont to correct anemia ELEVATED LIVER ENZYMES/TRANSAMINITIS due to obstructive jaundice follow serial LFT 's elevated lipase level -possibly due to inflammatory response to distal CBD obstruction /pancreatic mass NPO cont IVF GI BLEED episode of dark tarry stool early in AM presents with Hb ~8 /with elevated BUN 27 INR > 10 pt denies of any recent NSAID use NPO IV Protonix gtt monitor H&H q 6hrs ordered for 2 units of PRBC to be typed and crossed GI consulted monitor in Tele pt had EGD /Colonoscopy on 06/21/2017 for evaluation of Fe deficiency anemia : EGD: -erosive gastropathy likely due to NSAID use -Duodenal erosions with bleeding -biopsy obtained : Pathology : chronic gastritis without evidence of malignancy or metaplasia COLONOSCOPY : -5 mm polyp in cecum , resected -otherwise normal study Pathology : Tubular adenoma COAGULOPATHY on Chronic anticoagulation with Coumadin due to hx of lower ext DVT recent INR 4 weeks back was ~3 as per coag clinic labs -pt't INR has been fairly stable between 2-3 INR > 10 with prior dose of Coumadin -possible due to obstructive jaundice / causing hepatic inflammation /transaminitis INR reverse with IV Vit K and FFP plan of care d/w Dr Macias HYPERTENSION BP borderline low ;SBP ~100 hold lisinopril -in setting of GI Bleed /acute illness TYPE 2 DIABETES Presents with blood sugar more than 200 possible due to acute illness Last hemoglobin A1c on 01/29/2018 on 7.1-shows fairly well glycemic control Was on metformin 850 mg by mouth 3 times daily Metformin is kept on hold,-n.p.o. status/acute illness/status post contrast exposure for CT abdomen pelvis Insulin sliding scale Requested pharmacy consulted for glycemic management PRIOR HISTORY OF LOWER EXTREMITY DVT Was on Coumadin INR was 3.1 on 02/26/2018 Follows with coagulation clinic [facility] Presents with INR elevated more than 10 She reports of taking Coumadin as directed by anticoagulation clinic Last dose of Coumadin was 5 mg yesterday evening Possible coagulopathy secondary to abnormal liver function caused by biliary obstruction Coumadin discontinued Given vitamin K/FFP to reverse INR Given acute blood loss anemia, GI bleed /possible biliary versus pancreatic malignancy Patient will not be a candidate for anticoagulation therapy in future GERD IV Protonix drip Patient had prior EGD/colonoscopy on 06/2017 DYSLIPIDEMIA Was on fenofibrate 160 mg p.o. daily Kept on hold secondary to n.p.o. status/possible GI bleed CODE STATUS: Full code DVT PROPHYLAXIS: Presented with INR more than 10 Coagulopathy reversed with vitamin K and FFP Ordered for SCD and teds Avoid pharmacological anticoagulation in the setting of anemia/GI bleed DISPOSITION Expected to be discharged home when medically stable, Recent follow-up with Dr. Elizabeth Ma at [facility] Level of Care Telemetry Resuscitation Status FULL RESUSCITATION VTE Prophylaxis Risk Level: Moderate Given or contraindicated: T.E.D. Stockings, SCD's Additional Copies To Elizabeth Ma M.D. Abdulsamad, [place] ., M.D.
[2018-03-24] MEDS ORDERED: PANTOprazole INJ 80 MG in DEXTROSE 5% 100ML IV SCH (08:00)
[2018-03-24] MEDS ORDERED: PIPERACILL/TAZOBAC CONSULT ACTIVE PRN ×2 (08:00)
[2018-03-24] MEDS ORDERED: PHARMACY GLYCEMIC MGMT CONSULT PRN (08:20)
[2018-03-24] MEDS: PANTOprazole INJ 40 MG in DEXTROSE 5% 100ML IV SCH ×3 (08:24→18:25)
[2018-03-24] MEDS ORDERED: PIPERACILL/TAZOBAC IV 3.375 GM in DEXTROSE 5% 100ML 100 ML IV ONE (08:30)
[2018-03-24] MEDS ORDERED: ACETAMINOPHEN 1000 MG/100 ML IV IV ONE (08:35)
[2018-03-24] MEDS ORDERED: SODIUM CHLORIDE 0.9% 1000ML 1,000 ML IV SCH (09:15)
[2018-03-24] MEDS: INSULIN ASPART 100 UNITS/ML 3 ML PEN SC SCH ×4 (10:31→18:22)
--- NOTE | 2018-03-24 10:43 | Gastrointestinal Consultation ---
Gastrointestinal Consultation Date of Consultation: Mar 24, 2018 Attending Physician: Abraham Montez Consulting Physician: Reason for Consultation: Jaundice History of Present Illness Patient is a 82 year old female with HTN, DM, DLP, CKD, Hx of lymphosarcoma, DVT on Coumadin, presented to the hospital with jaundice, mild abdominal discomfort, nausea and vomiting. Niece noticed the jaundice yesterday. This AM had an episode of chills but no fever. Denies any weight loss, diarrhea or constipation. Had prior RIVAS but normal EGD and colonoscopy. No recent travel or sick contacts. CT scan showed dilated CBD with ? HOP mass. Past Medical/Surgical History Medical Problems: (1) Anemia Status: Acute (2) Anticoagulated on Coumadin Status: Acute (3) GI bleed Status: Acute (4) Pancreatitis Status: Acute (5) Precordial chest pain Status: Acute (6) Supratherapeutic INR Status: Acute (7) Syncope Status: Acute Past Medical History: as above Past Surgical History: Hysterectomy Family History Patient reports no known family medical history. Social History Smoking Status: Never Smoker Marital Status: Housing Status: lives with significant other Occupation Status: retired Allergies Coded Allergies: Statins (Verified Allergy, Unknown, muscle pain,weakness, 03/24/18) Current Medications Home Meds and Scripts Medications Dose Route/Sig Max Daily Dose Days Date Category Dose Instructions Iron (Ferrous Sulfate) Unknown Strength Tab Unknown Dose PO BID 03/24/18 Reported Coumadin (Warfarin Sodium) 5 Mg Tab 5 Mg PO [id number] 03/24/18 Reported takes daily except sundays Coumadin (Warfarin Sodium) 1 Mg Tab 7 Mg PO WK 03/24/18 Reported takes on sunday Zantac (Ranitidine HCl) 150 Mg Tab 150 Mg PO BID 06/14/17 Reported Vitamin D (Cholecalciferol) 1,000 Unit Tab 1 Tab PO BID 06/04/17 Reported Prinivil (Lisinopril) 5 Mg Tab 5 Mg PO QPM 03/19/17 Reported Excedrin Tension Headache (Acetaminophen-Caffeine) 1 Tab Tab PO DAILY PRN 03/15/15 Reported Glucophage (Metformin Hcl) 850 Mg Tab 850 Mg PO TIDM 02/23/15 Reported Review of Systems Constitutional: + sweats, No fever, No weight loss Eyes: No worsening of vision, No eye pain ENT: No hearing loss, No unusual epistaxis Respiratory: No cough, No sputum Cardiac: No chest pain, No orthopnea Abdomen: + see HPI Musculoskeletal: No joint pain Female : No dysuria, No urinary frequency Neuro: No paralysis, No weakness Psych: No depression symptoms, No anxiety Heme: No abnormal bleeding/bruising Endo: No fatigue Skin: No rash, No itch Physical Exam Date Time Temp Pulse Resp B/P (MAP) Pulse Ox O2 Delivery O2 Flow Rate FiO2 03/24/18 09:00 36.8 81 18 120/71 (87) 97 Room Air 03/24/18 08:49 80 18 106/61 95 03/24/18 07:31 95 Room Air 03/24/18 07:15 81 21 95 03/24/18 07:10 80 19 95 03/24/18 07:05 80 12 96 03/24/18 07:01 106/61 03/24/18 07:00 82 13 95 03/24/18 06:55 83 20 96 03/24/18 06:52 135/68 03/24/18 06:35 78 03/24/18 06:30 76 12 97 03/24/18 06:25 77 15 96 03/24/18 06:20 77 13 94 03/24/18 06:15 91 24 95 03/24/18 06:10 77 16 96 03/24/18 06:01 125/61 03/24/18 06:00 75 24 95 03/24/18 05:55 77 21 95 03/24/18 05:50 76 18 94 03/24/18 05:45 73 14 93 03/24/18 05:40 73 20 95 03/24/18 05:35 74 18 107/59 96 Room Air 03/24/18 05:35 77 20 96 03/24/18 05:31 107/59 03/24/18 05:30 78 17 94 03/24/18 05:25 73 19 98 03/24/18 05:24 107/58 03/24/18 04:45 79 15 96 18 04:40 78 21 94 03/24/18 04:25 78 03/24/18 04:08 36.5 90 20 86/56 95 Room Air General Appearance: no apparent distress Eyes: PERRL ENT: pharynx normal Neck: supple, no JVD Respiratory/Chest: lungs clear, normal breath sounds Cardiovascular: no edema, no JVD Abdomen: normal bowel sounds, non tender, soft Neurologic/Psych: normal mood/affect, oriented x 3 Skin: + jaundice Laboratory Results Last 24 Hours Test 03/24/18 04:20 03/24/18 06:16 03/24/18 08:00 03/24/18 08:25 White Blood Count 9.32 K/uL Red Blood Count 3.08 M/uL Hemoglobin 8.9 g/dL Hematocrit 25.9 % Mean Corpuscular Volume 84.1 fL Mean Corpuscular Hemoglobin 28.9 pg Mean Corpuscular Hemoglobin Concent 34.4 g/dl Platelet Count 284 K/uL Mean Platelet Volume 11.5 fL Neutrophils (%) (Auto) 61.4 % Lymphocytes (%) (Auto) 27.3 % Monocytes (%) (Auto) 6.5 % Eosinophils (%) (Auto) 4.1 % Basophils (%) (Auto) 0.5 % Neutrophils # (Auto) 5.72 K/uL Lymphocytes # (Auto) 2.54 K/uL Monocytes # (Auto) 0.61 K/uL Eosinophils # (Auto) 0.38 K/uL Basophils # (Auto) 0.05 K/uL RDW Standard Deviation 49.4 fL RDW Coefficient of Variation 16.1 % Immature Granulocyte % (Auto) 0.2 % Immature Granulocyte # (Auto) 0.02 K/uL Target Cells 1+ Sodium Level 132 mmol/L Potassium Level 4.9 mmol/L Chloride Level 103 mmol/L Carbon Dioxide Level 18 mmol/L Anion Gap 11.0 mmol/L Blood Urea Nitrogen 27 mg/dl Creatinine 1.15 mg/dl Estimated GFR () 51.7 Estimated GFR (Non- 44.6 BUN/Creatinine Ratio 23.6 Random Glucose 220 mg/dl Calcium Level 9.3 mg/dl Total Bilirubin 7.1 mg/dl Direct Bilirubin 6.0 mg/dl Aspartate Amino Transf (AST/SGOT) 238 U/L Alanine Aminotransferase (ALT/SGPT) 337 U/L Alkaline Phosphatase 423 U/L Troponin I < 0.015 ng/ml Total Protein 6.9 gm/dl Albumin 3.2 gm/dl Lipase 4260 U/L Prothrombin Time > 100.0 SECONDS Prothromb Time International Ratio > 10.0 Activated Partial Thromboplast Time 71.3 SECONDS Partial Thromboplastin Ratio 2.7 Urine Color DK YELLOW Urine Appearance CLEAR Urine pH 5.0 Urine Specific [place] 1.019 Urine Protein NEG Urine Glucose (UA) NEG Urine Ketones NEG Urine Occult Blood NEG Urine Nitrite NEG Urine Bilirubin NEG Urine Urobilinogen NEG Urine Leukocyte Esterase TRACE Urine WBC (Auto) 1-5 /hpf Urine RBC (Auto) 0-4 /hpf Urine Hyaline Casts (Auto) 1-5 /lpf Urine Epithelial Cells (Auto) 5-10 /lpf Urine Bacteria (Auto) NEG Lactic Acid Level 0.7 mmol/L Lactate Dehydrogenase 245 U/L Impression Patient is a 82 year old female with new onset obstructive jaundice with possible HOP mass causing biliary dilation and obstruction, no leukocytosis or clear signs of cholangitis though had chills this AM. Plan Need to correct INR in order to perform ERCP today to decompress her biliary system. Continue IV ABx. IV Hydration. Repeat INR at 12 pm, if elevated will give K-centra prior to ERCP. She was explained the risk, benefit and alternatives and she agrees.
[2018-03-24] MEDS ORDERED: INSULIN HUMAN REGULAR SC SCH (11:00)
[2018-03-24 11:38] LABS: INR 2.1 (0.9-1.1)
--- NOTE | 2018-03-24 12:30 | Progress Note ---
Progress Note Date of Service Mar 24, 2018. Progress Note ATTENDING ADDENDUM Repeat INR 2.1 at 11:41 PM Updated by GI , pt will have ERCP this afternoon needs to be transfused 2 units of FFP for the procedure Blood bank updated , ordered for 2 units of FFP tx stat ( consent for blood transfusion obtained in ER already ) FFP transfusion should be started as soon as possible,when available transfusion can continue during the procedure and postprocedure Gabrielle Herron MD
[2018-03-24] MEDS ORDERED: SUCCINYLCHOLINE CHLORIDE 20 MG/ML 10 ML VIAL IV ONE (12:57)
[2018-03-24] MEDS ORDERED: LIDOCAINE HCL 2% 2 ML VIAL (20MG/ML) ONE (12:57)
[2018-03-24] MEDS ORDERED: PROPOFOL IV EMULSION 10 MG/ML 20 ML VIAL ONE (12:57)
[2018-03-24] MEDS ORDERED: ONDANSETRON INJ 2 MG/ML 2 ML VIAL ONE (12:57)
[2018-03-24] MEDS ORDERED: ATROPINE SULFATE 0.1 MG/ML 5ML SYR IV PRN (13:15)
[2018-03-24] MEDS ORDERED: EpHEDrine SULFATE INJ 50 MG/ML AMP IV PRN (13:15)
[2018-03-24] MEDS ORDERED: FENTANYL CITRATE INJ 50 MCG/1 ML 2 ML VIAL IV PRN (13:15)
--- NOTE | 2018-03-24 13:36 | Pharmacy Progress Note ---
Glycemic Control Intl Consult Date of Service Mar 24, 2018. Scope Glycemic Pharmacist consulted by Dr Herron on 03/24/18 for glycemic control and to write orders per [facility] inpatient glycemic control protocol Objective Weight (Kilograms): 70.200 Accuchecks BSG (last 24hrs): Test 03/24/18 04:20 03/24/18 09:48 03/24/18 11:41 Random Glucose 220 mg/dl (70-99) Bedside Glucose 230 mg/dl (70-90) 198 mg/dl (70-90) Laboratory Data (last 24hrs) Test 03/24/18 04:20 Anion Gap 11.0 mmol/L BUN/Creatinine Ratio 23.6 Blood Urea Nitrogen 27 mg/dl Creatinine 1.15 mg/dl Potassium Level 4.9 mmol/L Sodium Level 132 mmol/L White Blood Count 9.32 K/uL Red Blood Count 3.08 M/uL Hemoglobin 8.9 g/dL Hematocrit 25.9 % Mean Corpuscular Volume 84.1 fL Mean Corpuscular Hemoglobin 28.9 pg Mean Corpuscular Hemoglobin Concent 34.4 g/dl Platelet Count 284 K/uL Mean Platelet Volume 11.5 fL Neutrophils (%) (Auto) 61.4 % Lymphocytes (%) (Auto) 27.3 % Monocytes (%) (Auto) 6.5 % Eosinophils (%) (Auto) 4.1 % Basophils (%) (Auto) 0.5 % Neutrophils # (Auto) 5.72 K/uL Lymphocytes # (Auto) 2.54 K/uL Monocytes # (Auto) 0.61 K/uL Eosinophils # (Auto) 0.38 K/uL Basophils # (Auto) 0.05 K/uL HbA1c Test 03/24/18 04:20 Recent Pertinent Medications Outpatient Anti-diabetic Regimen: * metformin 850 mg PO TID with meals * A1c = 6.3 % on 07/05/17 - updated A1c pending Assessment & Plan ASSESSMENT: * 82 yr old T2DM female who presented with vomiting, diarrhea, abdominal pain, and jaundice. INR greater than 10 on admission. Patient found to have new onset obstructive jaundice with possible HOP mass. She is currently NPO and has been scheduled for ERCP this afternoon. * Last A1c (from June 2017) indicates good glycemic control on metformin only. Repeat A1c pending. * Will hold oral agents for admission and utilize SQ basal bolus insulin regimen which is the recommended regimen for inpatient glycemic control. * Will initiate weight based insulin dosing for insulin chevy patient and titrate based on BSG trends. PLAN FOR INPATIENT GLYCEMIC CONTROL: * Holding outpatient oral diabetes medications * Basal insulin * Lantus 0-7 untis SQ HS * 0 units for BSG less than 180 mg/dL * 7 units for BSG 180 mg/dL or more * Bolus Insulin * NOVOLOG per scale ACHS or Q6hrs while NPO * Goal Range: Low 120 mg/dL - High 150 mg/dL * Correction Factor: 25 mg/dL/unit * Nutritional / Prandial insulin per carb ratio of 1 unit per 15 grams CHO consumed * Please note that the plan above was derived based on current level of insulin resistance and hospital stress. These recommendations are appropriate for inpatient admission only. Plan of care upon discharge will need to be reassessed to avoid potential outpatient hypo/hyperglycemia. Thank you.
[2018-03-24] MEDS: PIPERACILL/TAZOBAC IV 3.375 GM in DEXTROSE 5% 100ML 100 ML IV SCH (14:00)
--- NOTE | 2018-03-24 14:20 | [facility] Post Operative Brief Note ---
Immediate Operative Summary Operative Date Mar 24, 2018. Pre-Operative Diagnosis Billiary Obstruction and Billiary Stricture Post-Operative Diagnosis Billiary Obstruction and Billiary Stricture Procedure(s) Performed Endoscopic Retrograde Cholangiopancreato with Billiary Stent Placement Surgeon Dr. Larkin Inspector Ball Points Surgeon(s) NONE Estimated Blood Loss 0 ml Findings Consistent with Post-Op Diagnosis Specimens NONE per surgeon Anesthesia Type General
--- NOTE | 2018-03-24 14:44 | DIAGNOSTIC IMAGING REPORT ---
ERCP BILIARY DUCTAL CLINICAL HISTORY: ERCP IN OR COMPARISON STUDY: CT of the abdomen and pelvis March 24, 2018. FLUOROSCOPY TIME: 2 minutes and 44 seconds. FINDINGS: 8 fluoroscopic images were submitted for interpretation. These images demonstrate cannulation of the common bile duct with evidence for a distal common bile duct stricture with upstream dilatation. Subsequent images demonstrate placement of a biliary stent which appears appropriately positioned. There is contrast within the gallbladder. IMPRESSION: Fluoroscopic images demonstrating a distal common bile duct stricture, biliary ductal dilatation and placement of a common bile duct stent. Electronically signed by: Fernando Arboleda M.D. 03/24/2018 2:42 PM Dictated Date/Time: 03/24/2018 2:39 PM
--- NOTE | 2018-03-24 14:48 | GI REPORT ---
Patient Name: Aylin Burgess Procedure Date: 03/24/2018 1:07 PM Date of : 1935 Admit Type: Inpatient Age: 82 Gender: Female Attending MD: Abraham Larkin MD Procedure: ERCP Providers: Abraham Larkin MD Referring MD: Elizabeth Mancuso Indications: Biliary dilation on Computed Tomogram Scan, Suspected ascending cholangitis, Jaundice, Elevated liver enzymes Medicines: General Anesthesia Complications: No immediate complications. Estimated Blood Loss: Estimated blood loss: none. Procedure: Pre-Anesthesia Assessment: - Prior to the procedure, a History and Physical was performed, and patient medications and allergies were reviewed. The patient is competent. The risks and benefits of the procedure and the sedation options and risks were discussed with the patient. All questions were answered and informed consent was obtained. Patient identification and proposed procedure were verified by the physician and the nurse in the procedure room. Mental Status Examination: alert and oriented. Airway Examination: normal oropharyngeal airway and neck mobility. Respiratory Examination: clear to auscultation. CV Examination: normal. ASA Grade Assessment: III - A patient with severe systemic disease. After reviewing the risks and benefits, the patient was deemed in satisfactory condition to undergo the procedure. The anesthesia plan was to use general anesthesia. Immediately prior to administration of medications, the patient was re-assessed for adequacy to receive sedatives. The heart rate, respiratory rate, oxygen saturations, blood pressure, adequacy of pulmonary ventilation, and response to care were monitored throughout the procedure. The physical status of the patient was re-assessed after the procedure. After obtaining informed consent, the scope was passed under direct vision. Throughout the procedure, the patient's blood pressure, pulse, and oxygen saturations were monitored continuously. The SCOPE was introduced through the mouth, and advanced to the duodenum and used to inject contrast into the bile duct and ventral pancreatic duct. The ERCP was accomplished without difficulty. The patient tolerated the procedure well. Findings: The proof machine operator supervisor film was normal. The esophagus was successfully intubated under direct vision. The scope was advanced to a normal major papilla in the descending duodenum without detailed examination of the pharynx, larynx and associated structures, and upper GI tract. The upper GI tract was grossly normal. In the first attempt to cannulate, A 0.035 inch straight standard wire (Acrobat) was passed inadvertantly into the ventral pancreatic duct. The wire was kept in place and another 0.035 inch Acrobat wire was passed into the biliary tree. The Fusion OMNI sphincterotome was passed over the guidewire and the bile duct was then deeply cannulated. Contrast was injected. I personally interpreted the bile duct images. Ductal flow of contrast was adequate. Image quality was adequate. Contrast extended to the main bile duct. The lower third of the main bile duct contained a single severe stenosis 10 mm in length at the area of the HOP. The main bile duct was markedly dilated and diffusely dilated above the stricture. The largest diameter was 15 mm. Sphincterotomy was not attempted due to coagulopathy from Coumadin. One 7 Fr by 10 cm plastic stent with a full external pigtail and a full internal pigtail was placed into the common bile duct. Bile, pus and sludge flowed through the stent. The stent was in good position. One 5 Fr by 5 cm plastic stent with a 3/4 external pigtail and no internal flaps was placed into the ventral pancreatic duct to prevent pancreatitis. Clear fluid flowed through the stent. The stent was in good position. The total fluoroscopy exposure time was 2 minutes and 44 seconds. Indomethacin was not given due to risk of bleeding with high INR. 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 - The entire main bile duct was markedly dilated above the stricture. - Ascending cholangitis was found. Sphincterotomy not attempted due to coagulopathy. - One plastic stent was placed into the common bile duct. - One plastic stent was placed into the ventral pancreatic duct. Recommendation: - [facility]. - Clear liquid diet today. - Use a proton pump inhibitor IV for today. - Continue IV ABx. - Check CBC, LFT and INR tomorrow. - Perform an upper endoscopic ultrasound (UEUS) tomorrow with FNA if INR is normal. - Repeat ERCP in the furture to exchange stent, brush the stricture and pefrom sphincterotomy based on the EUS findings. Abraham Larkin MD 03/24/2018 2:47:21 PM This report has been signed electronically. Note Initiated On: 03/24/2018 1:07 PM Number of Addenda: 0 I attest to the content of the Intraoperative Record and orders documented therein, exceptions below {[id number]}
--- NOTE | 2018-03-24 14:52 | Anesthesiology Progress Note ---
Anesthesia Post Op Note Date & Time Mar 24, 2018 at 14:52 Vital Signs Pain Intensity: 0 Vital Signs Past 12 Hours Date Time Temp Pulse Resp B/P (MAP) Pulse Ox O2 Delivery O2 Flow Rate FiO2 03/24/18 14:40 82 21 134/59 99 Nasal Cannula 2 03/24/18 14:32 36.2 95 22 122/72 92 Oxymask 10 03/24/18 11:31 37.0 67 18 95/54 (68) 96 Room Air 03/24/18 09:00 Room Air 03/24/18 09:00 97 Room Air 03/24/18 09:00 36.8 81 18 120/71 (87) 97 Room Air 03/24/18 08:49 80 18 106/61 95 03/24/18 07:31 95 Room Air 03/24/18 07:15 81 21 95 03/24/18 07:10 80 19 95 03/24/18 07:05 80 12 96 03/24/18 07:01 106/61 03/24/18 07:00 82 13 95 03/24/18 06:55 83 20 96 03/24/18 06:52 135/68 03/24/18 06:35 78 03/24/18 06:30 76 12 97 03/24/18 06:25 77 15 96 03/24/18 06:20 77 13 94 03/24/18 06:15 91 24 95 03/24/18 06:10 77 16 96 03/24/18 06:01 125/61 03/24/18 06:00 75 24 95 03/24/18 05:55 77 21 95 03/24/18 05:50 76 18 94 03/24/18 05:45 73 14 93 03/24/18 05:40 73 20 95 03/24/18 05:35 74 18 107/59 96 Room Air 03/24/18 05:35 77 20 96 03/24/18 05:31 107/59 03/24/18 05:30 78 17 94 03/24/18 05:25 73 19 98 18 05:24 107/58 03/24/18 04:45 79 15 96 03/24/18 04:40 78 21 94 03/24/18 04:25 78 03/24/18 04:08 36.5 90 20 86/56 95 Room Air Notes Mental Status: alert / awake / arousable, participated in evaluation Pt Amnestic to Procedure: Yes Nausea / Vomiting: adequately controlled Pain: adequately controlled Airway Patency, RR, SpO2: stable & adequate BP & HR: stable & adequate Hydration State: stable & adequate Anesthetic Complications: no major complications apparent
[2018-03-24] MEDS ORDERED: NovoLOG PER UNIT CHARGE SC ONE (15:15)
[2018-03-24 17:18] LABS: INR 1.2 (0.9-1.1)
[2018-03-24 17:20] LABS: HEMATOCRIT 17.9 % (37-47); HEMOGLOBIN 6.2 g/dL (12.0-16.0)
[2018-03-24 17:34] LABS: ALBUMIN 2.7 gm/dl (3.4-5.0); CALCIUM 8.4 mg/dl (8.5-10.1); CREATININE 1.11 mg/dl (0.60-1.20); POTASSIUM 4.9 mmol/L (3.5-5.1); TOTAL PROTEIN 6.3 gm/dl (6.4-8.2)
--- NOTE | 2018-03-24 17:36 | Progress Note ---
Progress Note Date of Service Mar 24, 2018. Progress Note 1700 LABS REVIEWED Hemoglobin 6.2/hematocrit 17.9 Ordered for 2 units of PRBC to be transfused Continue to more follow H&H posttransfusion Monitor in telemetry Patient underwent ERCP today Hepatobiliary obstruction biliary stricture/head of the pancreas mass Had biliary stent placement Per GI; purulent biliary noted during procedure-suggestive of cholangitis Patient will continue with broad-spectrum antibiotic with IV Zosyn Continue n.p.o., IV Protonix drip Possible EUS with biopsy for pancreatic mass in a.m.
[2018-03-24] MEDS ORDERED: ACETAMINOPHEN IV 650 MG in EMPTY BAG 0 ML IV PRN (17:45)
[2018-03-24] MEDS ORDERED: MoRPHine SULFATE 2 MG/ML CARP IV PRN ×2 (17:45)
--- NOTE | 2018-03-24 18:31 | Progress Note ---
Progress Note Date of Service Mar 24, 2018. Progress Note pt has one episode of bloody bowel movement /socorro color stool per nursing clotted blood was present as well pt evaluated at bedside denies of any chest pain or SOB , no abdominal pain or nausea felt dizzy and lightheaded while trying to sit up getting Ist unit of PRBC transfusion Spoke with pt regarding possibility of malignancy /pancreatic mass causing obstruction Discussed Code status -does not want CPR /mechanical ventilation has advance directive code status changed to DNR/DNI pt will be transferred to ICU GI Dr Bradley updated regarding GI bleed , in agreement with ICU transfer pt will be evaluated by GI case D/w Dish Maker Dr Rodrigez
--- NOTE | 2018-03-24 18:56 | Critical Care Consultation ---
Critical Care Consultation Date of Consultation: Mar 24, 2018. Attending Physician: Gabrielle Herron M.D. Reason for Consultation: Sepsis, supratherapeutic INR, obstructive cholangitis pancreatic mass History of Present Illness Patient is an 82-year-old female with history of lower extremity DVT, on Coumadin, GERD, chronic back pain, hyperlipidemia, type 2 diabetes who presented to [facility] emergency department for intermittent vomiting and diarrhea and generalized fatigue over the last week. She acutely felt worse last night because she felt like she was going to pass out. Upon arrival in the emergency department she was also found to be significantly jaundiced. Patient was also complaining of dark stools. In the emergency department she is found to have an INR of greater than 10, she was to receive 10 mg of IV vitamin K, FFP and K Centra. In review of the hospital medication record this does not appear that the patient received K Centra. She underwent emergent ERCP and stent placement by gastroenterology. Was an obvious biliary obstruction with stricture, stent was placed and there is obvious concern for malignancy. Patient was started on Zosyn and resuscitated with Crystalloid. The patient's hemoglobin has been trended she is started at 8.9 and 25.9 and after a large melenotic bowel movement a repeat H&H demonstrated a hemoglobin of 6.9 and hematocrit of 17.9. Patient is being transferred to the ICU for further evaluation and management. Currently she has 2 peripheral IVs 18 and 16 -gauge and is receiving blood. The hospitalist team discussed CODE STATUS and goals of care with the patient, patient does not want to undergo heroic interventions in event of respiratory or cardiac arrest and has been made DNR/ DNI. Past Medical/Surgical History DVT diagnosed in 2000, no subsequent DVTs has been on lifelong Coumadin since Family History Patient reports no known family medical history. Social History Smoking Status: Never Smoker Marital Status: Housing Status: lives with significant other Occupation Status: retired Allergies Coded Allergies: Statins (Verified Allergy, Unknown, muscle pain,weakness, 03/24/18) Home Medications Scheduled Cholecalciferol (Vitamin D), 1 TAB PO BID Ferrous Sulfate (Iron), Unknown Dose PO BID Lisinopril (Prinivil), 5 MG PO QPM Metformin Hcl (Glucophage), 850 MG PO TIDM Ranitidine (Zantac), 150 MG PO BID Warfarin Sodium (Coumadin), 7 MG PO WK Warfarin Sodium (Coumadin), 5 MG PO [id number] Scheduled PRN Acetaminophen-Caffeine (Excedrin Tension Headache), PO DAILY PRN for Headache Current Inpatient Medications Current Inpatient Medications Medications (Trade) Dose Ordered Sig/Lucy Route Start Time Stop Time Status Last Admin Dose Admin Ioversol (Optiray 320) 125 ml UD PRN IV 03/24/18 06:30 03/28/18 06:29 Ondansetron HCl (Zofran Inj) 4 mg Q6H PRN IV 03/24/18 07:30 04/23/18 07:29 Glucose (Glucose 40% Gel) 15-30 GRAMS 15 GRAMS... UD PRN PO 03/24/18 07:45 04/23/18 07:44 Glucose (Glucose Chew Tab) 4-8 Tablets 4 Tabl... UD PRN PO 03/24/18 07:45 04/23/18 07:44 Dextrose (Dextrose 50% 50ML Syringe) 25-50ML 25ML FOR ... UD PRN IV 03/24/18 07:45 04/23/18 07:44 Glucagon (Glucagon Inj) 1 mg UD PRN SQ 03/24/18 07:45 04/23/18 07:44 Carbohydrates (Carbohydrates For Hypoglycemia) 15-30 GRAMS 15 grams if BSG 54-69... UD PRN PO 03/24/18 07:45 04/23/18 07:44 Miscellaneous Information (Consult Glycemic Management Pharmacy) 1 ea UD PRN N/A 03/24/18 08:20 04/23/18 08:19 Pantoprazole Sodium 40 mg/ Dextrose 100 ml @ 20 mls/hr Q5H IV 03/24/18 08:15 04/23/18 08:14 03/24/18 18:25 20 MLS/HR Piperacillin Sod/ Tazobactam Sod 3.375 gm/Dextrose 115 ml @ 28.75 mls/ hr Q8H IV 03/24/18 14:00 04/03/18 13:59 Miscellaneous Information (Consult) 1 ea UD PRN N/A 03/24/18 08:00 04/23/18 07:59 Insulin Aspart (novoLOG ASPART) SLIDING SCALE Q6 SC 03/24/18 09:30 04/23/18 09:29 03/24/18 18:22 1 UNITS Insulin Glargine (Lantus Per Unit) SEE PROTOCOL TEXT C... HS SQ 03/24/18 21:00 03/24/18 23:59 Acetaminophen 650 mg/Empty Bag 65 ml @ 260 mls/hr Q6H PRN IV 03/24/18 17:45 04/23/18 17:44 Morphine Sulfate (MoRPHine SULFATE INJ) 1 mg Q4H PRN IV 03/24/18 17:45 04/07/18 17:44 Morphine Sulfate (MoRPHine SULFATE INJ) 2 mg Q4H PRN IV 03/24/18 17:45 04/07/18 17:44 Review of Systems A 10 point review of systems has been obtained and is otherwise negative. Constitutional: + fever, + chills, + sweats, + weight loss, + weakness, + fatigue Eyes: No problem reported ENT: No hearing loss, No sore throat Respiratory: + dyspnea on exertion, No cough, No sputum, No wheezing Cardiovascular: No chest pain, No orthopnea Abdomen: + nausea, + vomiting, + diarrhea, + GI bleeding Genitourinary - Female: No dysuria Physical Exam Date Time Temp Pulse Resp B/P (MAP) Pulse Ox O2 Delivery O2 Flow Rate FiO2 03/24/18 18:45 37.2 85 20 154/78 95 03/24/18 18:26 37.2 84 18 145/77 03/24/18 18:17 37.4 80 18 121/75 03/24/18 17:50 37.2 84 18 121/72 95 03/24/18 17:24 37.2 76 20 109/57 (74) 96 Room Air 03/24/18 17:00 37.1 75 20 106/65 (79) 100 Nasal Cannula 1.0 03/24/18 16:50 37.1 75 20 106/65 100 1.0 03/24/18 16:22 37.1 74 20 112/69 (83) 98 Nasal Cannula 1.0 03/24/18 16:20 37.1 74 20 112/69 98 1.0 03/24/18 16:20 37.1 74 20 112/69 98 1.0 03/24/18 16:05 37.2 71 16 116/75 100 2.0 03/24/18 16:05 37.2 71 16 116/75 (89) 100 Nasal Cannula 2.0 /19/18 16:05 37.2 71 16 116/75 (89) 100 Nasal Cannula 2.0 19/18 16:05 37.2 71 16 116/75 100 2.0 8/19/18 15:40 37.0 70 18 127/53 100 Nasal Cannula 2 19/18 15:30 78 20 132/51 100 Nasal Cannula 2 03/24/18 15:25 36.8 71 18 107/62 100 19/18 15:20 72 20 107/62 100 Nasal Cannula 2 18 15:10 70 19 124/49 99 Nasal Cannula 2 18 15:00 76 20 128/54 100 Nasal Cannula 2 18 14:50 71 16 122/84 100 Nasal Cannula 2 03/24/18 14:40 82 21 134/59 99 Nasal Cannula 2 03/24/18 14:32 36.2 95 22 122/72 92 Oxymask 10 03/24/18 11:31 37.0 67 18 95/54 (68) 96 Room Air 18 09:00 Room Air 18 09:00 97 Room Air 18 09:00 36.8 81 18 120/71 (87) 97 Room Air 18 08:49 80 18 106/61 95 03/24/18 07:31 95 Room Air 18 07:15 81 21 95 03/24/18 07:10 80 19 95 03/24/18 07:05 80 12 96 19/18 07:01 106/61 03/24/18 07:00 82 13 95 19/18 06:55 83 20 96 19/18 06:52 135/68 19/18 06:35 78 19/18 06:30 76 12 97 19/18 06:25 77 15 96 03/24/18 06:20 77 13 94 19/18 06:15 91 24 95 19/18 06:10 77 16 96 19/18 06:01 125/61 19/18 06:00 75 24 95 19/18 05:55 77 21 95 19/18 05:50 76 18 94 8/19/18 05:45 73 14 93 03/24/18 05:40 73 20 95 03/24/18 05:35 74 18 107/59 96 Room Air 03/24/18 05:35 77 20 96 03/24/18 05:31 107/59 03/24/18 05:30 78 17 94 03/24/18 05:25 73 19 98 03/24/18 05:24 107/58 03/24/18 04:45 79 15 96 03/24/18 04:40 78 21 94 03/24/18 04:25 78 03/24/18 04:08 36.5 90 20 86/56 95 Room Air General Appearance: WD/WN, no apparent distress Head: normocephalic Eyes: PERRLA, scleral icterus ENT: normal mouth exam Neck: normal range of motion, no tenderness, trachea midline, no stridor Respiratory: breath sounds normal, clear to auscultation, no respiratory distress Cardiovasular: regular rate/rhythm, normal S1S2 Abdomen: non tender, hyperactive bowel sounds Upper Extremities: no edema Pulses: radial (R) (2+), radial (L) (2+) Neuro: alert, oriented x 3, normal motor exam Psychiatric: normal affect Laboratory Results Last 24 Hours Test 03/24/18 04:20 03/24/18 06:16 03/24/18 08:00 03/24/18 08:25 White Blood Count 9.32 K/uL Red Blood Count 3.08 M/uL Hemoglobin 8.9 g/dL Hematocrit 25.9 % Mean Corpuscular Volume 84.1 fL Mean Corpuscular Hemoglobin 28.9 pg Mean Corpuscular Hemoglobin Concent 34.4 g/dl Platelet Count 284 K/uL Mean Platelet Volume 11.5 fL Neutrophils (%) (Auto) 61.4 % Lymphocytes (%) (Auto) 27.3 % Monocytes (%) (Auto) 6.5 % Eosinophils (%) (Auto) 4.1 % Basophils (%) (Auto) 0.5 % Neutrophils # (Auto) 5.72 K/uL Lymphocytes # (Auto) 2.54 K/uL Monocytes # (Auto) 0.61 K/uL Eosinophils # (Auto) 0.38 K/uL Basophils # (Auto) 0.05 K/uL RDW Standard Deviation 49.4 fL RDW Coefficient of Variation 16.1 % Immature Granulocyte % (Auto) 0.2 % Immature Granulocyte # (Auto) 0.02 K/uL Target Cells 1+ Sodium Level 132 mmol/L Potassium Level 4.9 mmol/L Chloride Level 103 mmol/L Carbon Dioxide Level 18 mmol/L Anion Gap 11.0 mmol/L Blood Urea Nitrogen 27 mg/dl Creatinine 1.15 mg/dl Estimated GFR () 51.7 Estimated GFR (Non- 44.6 BUN/Creatinine Ratio 23.6 Random Glucose 220 mg/dl Calcium Level 9.3 mg/dl Total Bilirubin 7.1 mg/dl Direct Bilirubin 6.0 mg/dl Aspartate Amino Transf (AST/SGOT) 238 U/L Alanine Aminotransferase (ALT/SGPT) 337 U/L Alkaline Phosphatase 423 U/L Troponin I < 0.015 ng/ml Total Protein 6.9 gm/dl Albumin 3.2 gm/dl Lipase 4260 U/L Prothrombin Time > 100.0 SECONDS Prothromb Time International Ratio > 10.0 Activated Partial Thromboplast Time 71.3 SECONDS Partial Thromboplastin Ratio 2.7 Urine Color DK YELLOW Urine Appearance CLEAR Urine pH 5.0 Urine Specific [place] 1.019 Urine Protein NEG Urine Glucose (UA) NEG Urine Ketones NEG Urine Occult Blood NEG Urine Nitrite NEG Urine Bilirubin NEG Urine Urobilinogen NEG Urine Leukocyte Esterase TRACE Urine WBC (Auto) 1-5 /hpf Urine RBC (Auto) 0-4 /hpf Urine Hyaline Casts (Auto) 1-5 /lpf Urine Epithelial Cells (Auto) 5-10 /lpf Urine Bacteria (Auto) NEG Lactic Acid Level 0.7 mmol/L Lactate Dehydrogenase 245 U/L Test 03/24/18 09:48 03/24/18 11:18 03/24/18 11:41 03/24/18 14:53 Bedside Glucose 230 mg/dl 198 mg/dl 267 mg/dl Prothrombin Time 22.1 SECONDS Prothromb Time International Ratio 2.1 Test 03/24/18 16:38 03/24/18 17:03 03/24/18 18:09 03/24/18 18:22 Bedside Glucose 211 mg/dl 163 mg/dl Hemoglobin 6.2 g/dL Hematocrit 17.9 % Prothrombin Time 13.0 SECONDS Prothromb Time International Ratio 1.2 Sodium Level 135 mmol/L Potassium Level 4.9 mmol/L Chloride Level 103 mmol/L Carbon Dioxide Level 25 mmol/L Anion Gap 7.0 mmol/L Blood Urea Nitrogen 24 mg/dl Creatinine 1.11 mg/dl Est Creatinine Clear Calc Drug Dose 37.3 ml/min Estimated GFR () 53.9 Estimated GFR (Non- 46.5 BUN/Creatinine Ratio 21.6 Random Glucose 190 mg/dl Calcium Level 8.4 mg/dl Total Bilirubin 4.0 mg/dl Direct Bilirubin 3.3 mg/dl Aspartate Amino Transf (AST/SGOT) 183 U/L Alanine Aminotransferase (ALT/SGPT) 254 U/L Alkaline Phosphatase 310 U/L Total Protein 6.3 gm/dl Albumin 2.7 gm/dl Globulin 3.6 gm/dl Albumin/Globulin Ratio 0.7 Diagnostic Results Reviewed the EGD report: A ascending cholangitis with stent placement, probable upper endoscopic ultrasound with fine-needle aspiration in the near future as well as repeat ERCP with stent exchange and brushing I have reviewed the ultrasound report of the abdomen. I reviewed the CT scan of the abdomen as well as the radiology report: Interstitial thickening of the lower lungs, moderate gallbladder dilatation, pancreatic obstruction with pancreatic head mass I reviewed the CT head scan as well as the radiology report: 1.3 cm left parotid gland lesion Assessment & Plan Reason Critically Ill: 82-year-old female with pancreatitis and ascending cholangitis secondary to obstructing lesion likely within the head of the pancreas PLAN: Neuro: Near-syncope -Likely secondary to dehydration and possible sepsis from ascending cholangitis Resp: Interstitial thickening seen on CT scan -Defer further evaluation at this time given other critical illnesses CV: Hypertension - Holding antihypertensives Fluids/Renal: Crystalloid resuscitation Mild hyponatremia improving -Likely secondary to dehydration ID: Ascending cholangitis -Zosyn GI/Nutrition: Ascending cholangitis Pancreatitis 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 -Further evaluation of pancreatic head mass by GI pending Melanotic stools -Coagulopathy corrected -2 large-bore peripheral IVs in place receiving blood Heme: 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 -Emergent correction of coagulopathy Acute blood loss anemia -Receiving packed red blood cells History DVT -No role for chemical or mechanical prophylaxis at this time given contraindications of acute blood loss anemia -Consideration for IVC filter -Patient does not have an acute DVT nor signs and symptoms of pulmonary embolism, no clear indication for emergent placement Endocrine: ICU hyperglycemia protocol Vascular access: Maintain 2 peripheral IVs 18 or greater Code Status: DNR/DNI I have personally spent 60 minutes of critical care time in the direct management of this patient. This is a life/limb threatening event. This includes time spent evaluating patient, direct bedside care, chart review, placing orders, interpretation of diagnostic studies, discussion with consultants, patient, and/or family members regarding treatment decisions, as well as other required patient management activities. This time is exclusive of all separately billable procedures, and teaching time and separate from and in addition to any other critical care service time.
--- NOTE | 2018-03-24 20:09 | Pre Sedation Assessment ---
Pre Sedation Assessment General Date of Sedation: Mar 24, 2018. Vital Signs Past 12 Hours Date Time Temp Pulse Resp B/P (MAP) Pulse Ox O2 Delivery O2 Flow Rate FiO2 03/24/18 18:45 37.2 85 20 154/78 95 03/24/18 18:26 37.2 84 18 145/77 03/24/18 18:17 37.4 80 18 121/75 03/24/18 17:50 37.2 84 18 121/72 95 03/24/18 17:24 37.2 76 20 109/57 (74) 96 Room Air 03/24/18 17:00 37.1 75 20 106/65 (79) 100 Nasal Cannula 1.0 03/24/18 16:50 37.1 75 20 106/65 100 1.0 03/24/18 16:22 37.1 74 20 112/69 (83) 98 Nasal Cannula 1.0 03/24/18 16:20 37.1 74 20 112/69 98 1.0 03/24/18 16:20 37.1 74 20 112/69 98 1.0 03/24/18 16:05 37.2 71 16 116/75 100 2.0 03/24/18 16:05 37.2 71 16 116/75 (89) 100 Nasal Cannula 2.0 03/24/18 16:05 37.2 71 16 116/75 (89) 100 Nasal Cannula 2.0 03/24/18 16:05 37.2 71 16 116/75 100 2.0 03/24/18 15:40 37.0 70 18 127/53 100 Nasal Cannula 2 03/24/18 15:30 78 20 132/51 100 Nasal Cannula 2 03/24/18 15:25 36.8 71 18 107/62 100 03/24/18 15:20 72 20 107/62 100 Nasal Cannula 2 03/24/18 15:10 70 19 124/49 99 Nasal Cannula 2 03/24/18 15:00 76 20 128/54 100 Nasal Cannula 2 03/24/18 14:50 71 16 122/84 100 Nasal Cannula 2 03/24/18 14:40 82 21 134/59 99 Nasal Cannula 2 03/24/18 14:32 36.2 95 22 122/72 92 Oxymask 10 03/24/18 11:31 37.0 67 18 95/54 (68) 96 Room Air 03/24/18 09:00 Room Air 03/24/18 09:00 97 Room Air 03/24/18 09:00 36.8 81 18 120/71 (87) 97 Room Air 03/24/18 08:49 80 18 106/61 95 Review Cardiovascular: regular rate, rhythm, no edema, no gallop, no JVD, no murmur, normal peripheral pulses Lungs: chest non-tender, lungs clear, normal breath sounds, no respiratory distress, no accessory muscle use Pre-Sedation Airway Assessment Smoking Status: Never Smoker Hx of Sleep Apnea: No Hx of difficult intubation: No Short Thick Neck: Yes Thyro-mental Distance: > 3 Finger Breadths Oral Cavity: Dentures Mallampati Classification: Class III (Soft palate, base of uvula) ASA Classification: Class III NPO Status Date of Last Intake of Fluids: Mar 24, 2018 Time of Last Intake of Fluids: 0000 Date of Last Intake of Solids: Mar 23, 2018 Time of Last Intake of Solids: 1800 Procedure Planning Contraindications for Sedation: None Current Medications Reviewed: Yes Notes The planned sedation has been discussed with the patient. Informed Consent was obtained. I have identified the patient, determined the appropriateness of sedation and have assessed the patient immediately prior to the procedure. All medicine(s) and interventions are by my order.
[2018-03-24] MEDS ORDERED: PROPOFOL IV EMULSION 10 MG/ML 100 ML VIAL ONE (20:12)
--- NOTE | 2018-03-24 20:14 | Gastroenterology Progress Note ---
Gastroenterology Progress Note Patient had ERCP today, tolerated well, no blood was seen in the stomach though exam was limited with side viewing scope. She did report melena when she came to the ED but her H/H was at baseline. After the ERCP she had another melanotic stool in OR. Her Hct droped now hence transferred to ICU. She is hemodynamically stable and stool is more of maroon colored. INR is 1.2 Exam: abdomen is soft and non tender. Plan: PRBC transfusion. IV PPI Will perform a bedside EGD and Flex sig to check for diverticular bleed. Patient was explained the risk, benefit and alternatives and agreed.
[2018-03-24] MEDS ORDERED: LANTUS PER UNIT CHARGE SQ SCH (21:00)
--- NOTE | 2018-03-24 21:01 | Post Sedation Assessment ---
Post Sedation Assessment General Date of Sedation Mar 24, 2018. Vital Signs: Vital Signs Past 12 Hours Date Time Temp Pulse Resp B/P (MAP) Pulse Ox O2 Delivery O2 Flow Rate FiO2 03/24/18 18:45 37.2 85 20 154/78 95 03/24/18 18:26 37.2 84 18 145/77 03/24/18 18:17 37.4 80 18 121/75 03/24/18 17:50 37.2 84 18 121/72 95 03/24/18 17:24 37.2 76 20 109/57 (74) 96 Room Air 03/24/18 17:00 37.1 75 20 106/65 (79) 100 Nasal Cannula 1.0 03/24/18 16:50 37.1 75 20 106/65 100 1.0 03/24/18 16:22 37.1 74 20 112/69 (83) 98 Nasal Cannula 1.0 03/24/18 16:20 37.1 74 20 112/69 98 1.0 03/24/18 16:20 37.1 74 20 112/69 98 1.0 03/24/18 16:05 37.2 71 16 116/75 100 2.0 03/24/18 16:05 37.2 71 16 116/75 (89) 100 Nasal Cannula 2.0 03/24/18 16:05 37.2 71 16 116/75 (89) 100 Nasal Cannula 2.0 03/24/18 16:05 37.2 71 16 116/75 100 2.0 03/24/18 15:40 37.0 70 18 127/53 100 Nasal Cannula 2 03/24/18 15:30 78 20 132/51 100 Nasal Cannula 2 03/24/18 15:25 36.8 71 18 107/62 100 03/24/18 15:20 72 20 107/62 100 Nasal Cannula 2 03/24/18 15:10 70 19 124/49 99 Nasal Cannula 2 03/24/18 15:00 76 20 128/54 100 Nasal Cannula 2 03/24/18 14:50 71 16 122/84 100 Nasal Cannula 2 03/24/18 14:40 82 21 134/59 99 Nasal Cannula 2 03/24/18 14:32 36.2 95 22 122/72 92 Oxymask 10 03/24/18 11:31 37.0 67 18 95/54 (68) 96 Room Air 03/24/18 09:00 Room Air 03/24/18 09:00 97 Room Air 03/24/18 09:00 36.8 81 18 120/71 (87) 97 Room Air Post Procedure Recovery Score Activity: (2) Moves 4 extremities * Respiration: (2) Deep breath/cough Circulation: (2) +/-20% PreAnes Value Consciousness: (1) Arouseable (by name) Oxygen Saturation: (1) O2 needed for >90% Post Anesthesia Score: 8 Discharge Sedation Level of Care: Higher Level of Care Post Sedation Plan On clinical assessment, the patient appears to have tolerated the sedation without complications. Patient is recovering as anticipated. Patient will remain in ICU. sedation start time 2039, sedation end time 2099, total medication propofol 90 mg given in multiple aliquots, please see recorder record for further details.
--- NOTE | 2018-03-24 21:07 | GI REPORT ---
Patient Name: Aylin Burgess Procedure Date: 03/24/2018 8:40 PM Date of : 1935 Admit Type: Inpatient Age: 82 Gender: Female Attending MD: Abraham Larkin MD Procedure: Upper GI endoscopy Providers: Abraham Larkin MD Referring MD: Gabrielle Herron Indications: Hematochezia Medicines: Monitored Anesthesia Care Complications: No immediate complications. Estimated Blood Loss: Estimated blood loss: none. Procedure: Pre-Anesthesia Assessment: - Prior to the procedure, a History and Physical was performed, and patient medications and allergies were reviewed. The patient is competent. The risks and benefits of the procedure and the sedation options and risks were discussed with the patient. All questions were answered and informed consent was obtained. Patient identification and proposed procedure were verified by the physician and the nurse in the procedure room. Mental Status Examination: alert and oriented. Airway Examination: normal oropharyngeal airway and neck mobility. Respiratory Examination: clear to auscultation. CV Examination: normal. ASA Grade Assessment: III - A patient with severe systemic disease. After reviewing the risks and benefits, the patient was deemed in satisfactory condition to undergo the procedure. The anesthesia plan was to use monitored anesthesia care (MAC). Immediately prior to administration of medications, the patient was re-assessed for adequacy to receive sedatives. The heart rate, respiratory rate, oxygen saturations, blood pressure, adequacy of pulmonary ventilation, and response to care were monitored throughout the procedure. The physical status of the patient was re-assessed after the procedure. After obtaining informed consent, the endoscope was passed under direct vision. Throughout the procedure, the patient's blood pressure, pulse, and oxygen saturations were monitored continuously. The Scope was introduced through the mouth, and advanced to the second part of duodenum. The upper GI endoscopy was accomplished without difficulty. The patient tolerated the procedure well. Findings: The examined esophagus was normal. A few, small non-bleeding erosions were found in the gastric body. There were no stigmata of recent bleeding. Bile noted in the stomach. The duodenal bulb, second portion of the duodenum and area of the papilla were normal. Bile noted. No blood. Two previously placed plastic stents were seen in the area of the papilla. Impression: - Normal esophagus. - Non-bleeding erosive gastropathy. - Normal duodenal bulb, second portion of the duodenum and area of the papilla. - Plastic stents in the duodenum. - No specimens collected. Recommendation: - Perform a flexible sigmoidoscopy today. Abraham Larkin MD 03/24/2018 9:07:00 PM This report has been signed electronically. Note Initiated On: 03/24/2018 8:40 PM Number of Addenda: 0 I attest to the content of the Intraoperative Record and orders documented therein, exceptions below {[id number]}
--- NOTE | 2018-03-24 21:12 | GI REPORT ---
Patient Name: Aylin Burgess Procedure Date: 03/24/2018 8:46 PM Date of : 1935 Admit Type: Inpatient Age: 82 Gender: Female Attending MD: Abraham Larkin MD Procedure: Flexible Sigmoidoscopy Providers: Abraham Larkin MD Referring MD: Gabrielle Herron Indications: Hematochezia Medicines: Monitored Anesthesia Care Complications: No immediate complications. Estimated Blood Loss: Estimated blood loss: none. Procedure: Pre-Anesthesia Assessment: - Prior to the procedure, a History and Physical was performed, and patient medications and allergies were reviewed. The patient is competent. The risks and benefits of the procedure and the sedation options and risks were discussed with the patient. All questions were answered and informed consent was obtained. Patient identification and proposed procedure were verified by the physician and the nurse in the procedure room. Mental Status Examination: alert and oriented. Airway Examination: normal oropharyngeal airway and neck mobility. Respiratory Examination: clear to auscultation. CV Examination: normal. ASA Grade Assessment: III - A patient with severe systemic disease. After reviewing the risks and benefits, the patient was deemed in satisfactory condition to undergo the procedure. The anesthesia plan was to use monitored anesthesia care (MAC). Immediately prior to administration of medications, the patient was re-assessed for adequacy to receive sedatives. The heart rate, respiratory rate, oxygen saturations, blood pressure, adequacy of pulmonary ventilation, and response to care were monitored throughout the procedure. The physical status of the patient was re-assessed after the procedure. After obtaining informed consent, the endoscope was passed under direct vision. Throughout the procedure, the patient's blood pressure, pulse, and oxygen saturations were monitored continuously. The Scope was introduced through the anus and advanced to the descending colon. After obtaining informed consent, the endoscope was passed under direct vision. Throughout the procedure, the patient's blood pressure, pulse, and oxygen saturations were monitored continuously.The flexible sigmoidoscopy was accomplished without difficulty. The patient tolerated the procedure well. The quality of the bowel preparation was poor. Findings: The perianal and digital rectal examinations were normal. Dark red (maroon colored) blood was found in the rectum, in the sigmoid colon and in the descending colon suggestive of lower GI bleeding source like a diverticular bleed. Impression: - Preparation of the colon was poor. - Dark red blood in the rectum, in the sigmoid colon and in the descending colon indicating a lower GI bleeding source (likely diverticular). - No specimens collected. Recommendation: - Clear liquid diet. - Give 4L of Golytely. - Perform a full colonoscopy tomorrow. - Transfuse PRBC as needed. Abraham Larkin MD 03/24/2018 9:12:07 PM This report has been signed electronically. Note Initiated On: 03/24/2018 8:46 PM Number of Addenda: 0 I attest to the content of the Intraoperative Record and orders documented therein, exceptions below {[id number]}
--- NOTE | 2018-03-24 21:31 | DIAGNOSTIC IMAGING REPORT ---
[facility] CLINICAL HISTORY: NG TUBE PLACEMENT COMPARISON STUDY: CT of the abdomen and pelvis March 24, 2018 at 6:34 AM. FINDINGS: Tip of nasogastric tube is within the body of the stomach. Visualized bowel gas pattern is unremarkable. Note is made of stents within the common bile duct and the main pancreatic duct. There is contrast within the gallbladder from recent ERCP. IMPRESSION: 1. Tip of nasogastric tube within the body of stomach. 2. Appropriately positioned stents within the common bile duct and main pancreatic duct. Electronically signed by: Fernando Arboleda M.D. 03/24/2018 9:29 PM Dictated Date/Time: 03/24/2018 9:26 PM
[2018-03-24] MEDS ORDERED: LAVAGE SOLUTION 4000ML PO ONE (21:45)
[2018-03-25] VITALS (23 sets, daily range): BP systolic 112–169; BP diastolic 54–82; PULSE 71–90; TEMP 36.4–36.9; O2SAT 85–98; BMI 27.4
[2018-03-25 00:39] LABS: HEMATOCRIT 28.3 % (37-47); HEMOGLOBIN 9.5 g/dL (12.0-16.0)
[2018-03-25] MEDS: PIPERACILL/TAZOBAC IV 3.375 GM in DEXTROSE 5% 100ML 100 ML IV SCH ×4 (01:26→21:51)
[2018-03-25] MEDS: PANTOprazole INJ 40 MG in DEXTROSE 5% 100ML IV SCH ×2 (01:28→04:29)
[2018-03-25] MEDS ORDERED: NURSING VERBAL MED ORDER ONE (04:00)
[2018-03-25] MEDS ORDERED: PROPOFOL IV EMULSION 10 MG/ML 100 ML VIAL IV PRN (04:30)
[2018-03-25 05:01] LABS: HEMATOCRIT 25.1 % (37-47); HEMOGLOBIN 8.4 g/dL (12.0-16.0); MEAN CELL VOLUME 84.8 fL (80-100); MEAN CORPUSCULAR HEMOGLOBIN 28.4 pg (25-34); MEAN CORPUSCULAR HGB CONC 33.5 g/dl (32-36); MEAN PLATELET VOLUME 10.6 fL (7.4-10.4); PLATELET COUNT 206 K/uL (130-400); RED CELL DISTRIBUTION WIDTH CV 14.9 % (11.5-14.5); RED CELL DISTRIBUTION WIDTH SD 45.7 fL (36.4-46.3); WHITE BLOOD COUNT 9.45 K/uL (4.8-10.8)
[2018-03-25 05:20] LABS: INR 1.1 (0.9-1.1)
[2018-03-25] MEDS: INSULIN ASPART 100 UNITS/ML 3 ML PEN SC SCH ×4 (05:35→16:39)
[2018-03-25 05:44] LABS: ALBUMIN 2.9 gm/dl (3.4-5.0); CALCIUM 8.5 mg/dl (8.5-10.1); CREATININE 0.95 mg/dl (0.60-1.20); TOTAL PROTEIN 6.2 gm/dl (6.4-8.2)
--- NOTE | 2018-03-25 06:40 | Critical Care Progress Note ---
Critical Care Progress Note Date of Service Mar 25, 2018. ICU Day ICU Day Number: [address] Rodrigez Subjective Completed bowel prep overnight. Objective General Appearance: WD/WN, no apparent distress Head: normocephalic Eyes: PERRLA, scleral icterus ENT: NG tube present right naris Neck: normal range of motion, no tenderness, trachea midline, no stridor Respiratory: breath sounds normal, clear to auscultation, no respiratory distress Cardiovasular: regular rate/rhythm, normal S1S2 Abdomen: non tender, hyperactive bowel sounds Upper Extremities: no edema Pulses: radial (R) (2+), radial (L) (2+) Neuro: alert, oriented x 3, normal motor exam Psychiatric: normal affect Assessment & Plan Reason Critically Ill: 82-year-old female with pancreatitis and ascending cholangitis secondary to obstructing lesion likely within the head of the pancreas PLAN: Neuro: Near-syncope -Likely secondary to dehydration and possible sepsis from ascending cholangitis Resp: Interstitial thickening seen on CT scan -Defer further evaluation at this time given other critical illnesses CV: Hypertension - Holding antihypertensives Fluids/Renal: Crystalloid resuscitation Mild hyponatremia: Resolved -Likely secondary to dehydration ID: Ascending cholangitis -Zosyn GI/Nutrition: Ascending cholangitis Pancreatitis 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 -Further evaluation of pancreatic head mass by GI pending Melanotic stools -Coagulopathy corrected -2 large-bore peripheral IVs in place receiving blood -No evidence of upper GI bleeding on repeat limited EGD: No bleeding from ERCP site -Confirmatory findings for lower GI bleeding on limited flex sig -Completed bowel prep overnight can discontinue NG tube that was placed following ERCP Heme: 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 -Emergent correction of coagulopathy Acute blood loss anemia -Receiving packed red blood cells -Continue to trend h/h: Repeat H&H at 11 AM History DVT -No role for chemical prophylaxis at this time given contraindications of acute blood loss anemia -We will start mechanical prophylaxis as DVT is remote -Patient does not have an acute DVT nor signs and symptoms of pulmonary embolism, no clear indication for emergent placement Endocrine: ICU hyperglycemia protocol Vascular access: Maintain 2 peripheral IVs 18 or greater Code Status: DNR/DNI I have personally spent 35 minutes of critical care time in the direct management of this patient. This is a life/limb threatening event. This includes time spent evaluating patient, direct bedside care, chart review, placing orders, interpretation of diagnostic studies, discussion with consultants, patient, and/or family members regarding treatment decisions, as well as other required patient management activities. This time is exclusive of all separately billable procedures, and teaching time and separate from and in addition to any other critical care service time. Consults & Procedures Consultants: Gastroenterology Procedures: EGD x 2 03/24/18 Flex-Sig 03/24/18 Data Medications: Current Inpatient Medications Medications (Trade) Dose Ordered Sig/Lucy Route Start Time Stop Time Status Last Admin Dose Admin Ioversol (Optiray 320) 125 ml UD PRN IV 03/24/18 06:30 03/28/18 06:29 Ondansetron HCl (Zofran Inj) 4 mg Q6H PRN IV 03/24/18 07:30 04/23/18 07:29 Glucose (Glucose 40% Gel) 15-30 GRAMS 15 GRAMS... UD PRN PO 03/24/18 07:45 04/23/18 07:44 Glucose (Glucose Chew Tab) 4-8 Tablets 4 Tabl... UD PRN PO 03/24/18 07:45 04/23/18 07:44 Dextrose (Dextrose 50% 50ML Syringe) 25-50ML 25ML FOR ... UD PRN IV 03/24/18 07:45 04/23/18 07:44 Glucagon (Glucagon Inj) 1 mg UD PRN SQ 03/24/18 07:45 04/23/18 07:44 Carbohydrates (Carbohydrates For Hypoglycemia) 15-30 GRAMS 15 grams if BSG 54-69... UD PRN PO 03/24/18 07:45 04/23/18 07:44 Miscellaneous Information (Consult Glycemic Management Pharmacy) 1 ea UD PRN N/A 03/24/18 08:20 04/23/18 08:19 Pantoprazole Sodium 40 mg/ Dextrose 100 ml @ 20 mls/hr Q5H IV 03/24/18 08:15 04/23/18 08:14 03/25/18 01:28 20 MLS/HR Piperacillin Sod/ Tazobactam Sod 3.375 gm/Dextrose 115 ml @ 28.75 mls/ hr Q8H IV 03/24/18 14:00 04/03/18 13:59 8/20/18 01:26 28.75 MLS/HR Miscellaneous Information (Consult) 1 ea UD PRN N/A 03/24/18 08:00 04/23/18 07:59 Insulin Aspart (novoLOG ASPART) SLIDING SCALE Q6 SC 03/24/18 09:30 04/23/18 09:29 03/24/18 18:22 1 UNITS Acetaminophen 650 mg/Empty Bag 65 ml @ 260 mls/hr Q6H PRN IV 03/24/18 17:45 04/23/18 17:44 Morphine Sulfate (MoRPHine SULFATE INJ) 1 mg Q4H PRN IV 03/24/18 17:45 04/07/18 17:44 Morphine Sulfate (MoRPHine SULFATE INJ) 2 mg Q4H PRN IV 03/24/18 17:45 04/07/18 17:44 Vital Signs: Date Time Temp Pulse Resp B/P (MAP) Pulse Ox O2 Delivery O2 Flow Rate FiO2 03/25/18 01:01 36.7 86 25 157/79 (105) 89 03/25/18 01:00 80 21 95 03/25/18 00:02 75 24 169/69 (102) 03/25/18 00:00 76 17 94 03/24/18 23:25 73 20 155/85 (108) 96 03/24/18 23:16 77 23 155/85 (108) 94 03/24/18 23:01 76 22 155/79 (104) 97 03/24/18 23:00 79 17 96 03/24/18 22:32 36.9 79 24 142/94 (110) 97 03/24/18 22:16 36.7 79 24 142/94 (110) 97 03/24/18 22:09 79 18 95 03/24/18 22:01 82 26 167/85 (112) 96 03/24/18 21:54 36.7 78 24 98 03/24/18 21:46 80 23 157/81 (106) 97 03/24/18 21:39 82 23 98 03/24/18 21:31 36.7 77 15 155/72 (99) 83 03/24/18 21:30 83 20 155/72 (99) 96 Room Air 03/24/18 21:24 91 23 173/77 (109) 94 03/24/18 21:15 83 16 117/82 (94) 95 Room Air 8/19/18 21:09 84 19 96 8/19/18 21:01 36.7 78 26 117/82 (94) 96 8/19/18 21:00 79 16 148/73 (98) 95 Room Air 8/19/18 21:00 80 27 119/80 (93) 98 8/19/18 20:56 82 23 148/73 (98) 94 8/19/18 20:54 78 24 119/80 98 Room Air 8/19/18 20:54 82 30 98 8/19/18 20:51 80 27 119/80 (93) 91 8/19/18 20:49 80 29 132/62 99 Room Air 8/19/18 20:48 79 25 132/62 (85) 98 8/19/18 20:48 79 25 132/62 (85) 98 8/19/18 20:45 81 22 93 8/19/18 20:44 81 24 122/82 95 Room Air 8/19/18 20:44 36.9 83 31 122/81 (95) 94 8/19/18 20:44 83 31 122/81 (95) 94 8/19/18 20:41 82 18 153/96 (115) 99 8/19/18 20:41 82 18 153/96 (115) 99 8/19/18 20:39 84 20 99 8/19/18 20:31 79 18 158/77 (104) 99 8/19/18 20:31 79 18 158/77 (104) 99 8/19/18 20:30 75 20 98 8/19/18 20:26 36.9 75 20 149/90 98 2.0 8/19/18 20:24 78 19 99 8/19/18 20:16 79 19 149/90 (109) 99 8/19/18 20:15 36.9 77 19 100 8/19/18 20:03 79 18 147/69 (95) 8/19/18 20:00 83 18 8/19/18 20:00 93 8/19/18 19:46 84 24 160/83 (108) 8/19/18 19:45 84 21 8/19/18 19:31 77 18 144/87 (106) 96 8/19/18 19:30 77 16 96 8/19/18 19:17 36.9 83 22 142/72 (95) 95 8/19/18 19:15 79 21 97 18 19:12 82 18 162/81 (108) 96 18 19:00 79 18 18:45 37.2 85 20 154/78 95 18 18:26 37.2 84 18 145/77 18 18:17 37.4 80 18 121/75 18 17:50 37.2 84 18 121/72 95 18 17:24 37.2 76 20 109/57 (74) 96 Room Air 03/24/18 17:00 37.1 75 20 106/65 (79) 100 Nasal Cannula 1.0 03/24/18 16:50 37.1 75 20 106/65 100 1.0 03/24/18 16:22 37.1 74 20 112/69 (83) 98 Nasal Cannula 1.0 03/24/18 16:20 37.1 74 20 112/69 98 1.0 03/24/18 16:20 37.1 74 20 112/69 98 1.0 18 16:05 37.2 71 16 116/75 100 2.0 18 16:05 37.2 71 16 116/75 (89) 100 Nasal Cannula 2.0 18 16:05 37.2 71 16 116/75 (89) 100 Nasal Cannula 2.0 18 16:05 37.2 71 16 116/75 100 2.0 18 15:40 37.0 70 18 127/53 100 Nasal Cannula 2 03/24/18 15:30 78 20 132/51 100 Nasal Cannula 2 18 15:25 36.8 71 18 107/62 100 18 15:20 72 20 107/62 100 Nasal Cannula 2 03/24/18 15:10 70 19 124/49 99 Nasal Cannula 2 03/24/18 15:00 76 20 128/54 100 Nasal Cannula 2 18 14:50 71 16 122/84 100 Nasal Cannula 2 03/24/18 14:40 82 21 134/59 99 Nasal Cannula 2 03/24/18 14:32 36.2 95 22 122/72 92 Oxymask 10 03/24/18 11:31 37.0 67 18 95/54 (68) 96 Room Air 03/24/18 09:00 Room Air 03/24/18 09:00 97 Room Air 03/24/18 09:00 36.8 81 18 120/71 (87) 97 Room Air 03/24/18 08:49 80 18 106/61 95 03/24/18 07:31 95 Room Air 03/24/18 07:15 81 21 95 03/24/18 07:10 80 19 95 03/24/18 07:05 80 12 96 03/24/18 07:01 106/61 03/24/18 07:00 82 13 95 03/24/18 06:55 83 20 96 03/24/18 06:52 135/68 03/24/18 06:35 78 03/24/18 06:30 76 12 97 03/24/18 06:25 77 15 96 03/24/18 06:20 77 13 94 03/24/18 06:15 91 24 95 03/24/18 06:10 77 16 96 03/24/18 06:01 125/61 03/24/18 06:00 75 24 95 03/24/18 05:55 77 21 95 03/24/18 05:50 76 18 94 03/24/18 05:45 73 14 93 03/24/18 05:40 73 20 95 03/24/18 05:35 74 18 107/59 96 Room Air 03/24/18 05:35 77 20 96 03/24/18 05:31 107/59 03/24/18 05:30 78 17 94 03/24/18 05:25 73 19 98 03/24/18 05:24 107/58 03/24/18 04:45 79 15 96 03/24/18 04:40 78 21 94 03/24/18 04:25 78 03/24/18 04:08 36.5 90 20 86/56 95 Room Air Laboratory Results: Last 24 Hours Test 03/24/18 04:20 03/24/18 06:16 03/24/18 08:00 03/24/18 08:25 White Blood Count 9.32 K/uL Red Blood Count 3.08 M/uL Hemoglobin 8.9 g/dL Hematocrit 25.9 % Mean Corpuscular Volume 84.1 fL Mean Corpuscular Hemoglobin 28.9 pg Mean Corpuscular Hemoglobin Concent 34.4 g/dl Platelet Count 284 K/uL Mean Platelet Volume 11.5 fL Neutrophils (%) (Auto) 61.4 % Lymphocytes (%) (Auto) 27.3 % Monocytes (%) (Auto) 6.5 % Eosinophils (%) (Auto) 4.1 % Basophils (%) (Auto) 0.5 % Neutrophils # (Auto) 5.72 K/uL Lymphocytes # (Auto) 2.54 K/uL Monocytes # (Auto) 0.61 K/uL Eosinophils # (Auto) 0.38 K/uL Basophils # (Auto) 0.05 K/uL RDW Standard Deviation 49.4 fL RDW Coefficient of Variation 16.1 % Immature Granulocyte % (Auto) 0.2 % Immature Granulocyte # (Auto) 0.02 K/uL Target Cells 1+ Sodium Level 132 mmol/L Potassium Level 4.9 mmol/L Chloride Level 103 mmol/L Carbon Dioxide Level 18 mmol/L Anion Gap 11.0 mmol/L Blood Urea Nitrogen 27 mg/dl Creatinine 1.15 mg/dl Estimated GFR () 51.7 Estimated GFR (Non- 44.6 BUN/Creatinine Ratio 23.6 Random Glucose 220 mg/dl Calcium Level 9.3 mg/dl Total Bilirubin 7.1 mg/dl Direct Bilirubin 6.0 mg/dl Aspartate Amino Transf (AST/SGOT) 238 U/L Alanine Aminotransferase (ALT/SGPT) 337 U/L Alkaline Phosphatase 423 U/L Troponin I < 0.015 ng/ml Total Protein 6.9 gm/dl Albumin 3.2 gm/dl Lipase 4260 U/L Prothrombin Time > 100.0 SECONDS Prothromb Time International Ratio > 10.0 Activated Partial Thromboplast Time 71.3 SECONDS Partial Thromboplastin Ratio 2.7 Urine Color DK YELLOW Urine Appearance CLEAR Urine pH 5.0 Urine Specific Exmore 1.019 Urine Protein NEG Urine Glucose (UA) NEG Urine Ketones NEG Urine Occult Blood NEG Urine Nitrite NEG Urine Bilirubin NEG Urine Urobilinogen NEG Urine Leukocyte Esterase TRACE Urine WBC (Auto) 1-5 /hpf Urine RBC (Auto) 0-4 /hpf Urine Hyaline Casts (Auto) 1-5 /lpf Urine Epithelial Cells (Auto) 5-10 /lpf Urine Bacteria (Auto) NEG Lactic Acid Level 0.7 mmol/L Lactate Dehydrogenase 245 U/L Test 03/24/18 09:48 8/19/18 11:18 03/24/18 11:41 03/24/18 14:53 Bedside Glucose 230 mg/dl 198 mg/dl 267 mg/dl Prothrombin Time 22.1 SECONDS Prothromb Time International Ratio 2.1 Test 03/24/18 16:38 03/24/18 17:03 03/24/18 18:09 03/24/18 18:22 Bedside Glucose 211 mg/dl 163 mg/dl Hemoglobin 6.2 g/dL Hematocrit 17.9 % Prothrombin Time 13.0 SECONDS Prothromb Time International Ratio 1.2 Sodium Level 135 mmol/L Potassium Level 4.9 mmol/L Chloride Level 103 mmol/L Carbon Dioxide Level 25 mmol/L Anion Gap 7.0 mmol/L Blood Urea Nitrogen 24 mg/dl Creatinine 1.11 mg/dl Est Creatinine Clear Calc Drug Dose 37.3 ml/min Estimated GFR () 53.9 Estimated GFR (Non- 46.5 BUN/Creatinine Ratio 21.6 Random Glucose 190 mg/dl Calcium Level 8.4 mg/dl Total Bilirubin 4.0 mg/dl Direct Bilirubin 3.3 mg/dl Aspartate Amino Transf (AST/SGOT) 183 U/L Alanine Aminotransferase (ALT/SGPT) 254 U/L Alkaline Phosphatase 310 U/L Total Protein 6.3 gm/dl Albumin 2.7 gm/dl Globulin 3.6 gm/dl Albumin/Globulin Ratio 0.7 Procalcitonin < 0.05 ng/ml Test 03/24/18 21:56 03/25/18 00:03 03/25/18 01:02 Bedside Glucose 137 mg/dl 150 mg/dl Hemoglobin 9.5 g/dL Hematocrit 28.3 %
[2018-03-25 06:54] LABS: HEMOGLOBIN A1C 7.6 % (4.5-5.6)
--- NOTE | 2018-03-25 09:34 | Progress Note ---
Progress Note Date of Service Mar 25, 2018. (Talia Parham CRNP) Progress Note Pt is a 82 y/o female admitted w elevated LFTs, jaundice, N/V, reported to have dark stools prior to admission and found to be anemic on presentation. Imaging studies w gallbladder u/s and CT abd/pelvis showed CBD and pancreatic duct dilations. ? obscure pancreas head mass. ERCP performed on 03/24/18 for suspected cholangitis, CBD stent and pancreatic stent placed. LFTs improving. Pt had melena in OR then EGD/Flex sig performed as well. No signs of UGI bleeding, + blood in colon suspected from diverticular bleed. She had no acute events overnight, [facility] today by Dr. Hart.. VS stable, Labs showed improved H/H after 2U PRBC transfusion. Exam: - AAOx3, in NAD, mild jaundice noted - HR regular, no murmur or gallops - Clear to auscultation bilateral lungs - Abd soft, non tender, BS present - No edema on extremities GI will give further recs after colonoscopy is completed. (Talia Parham CRNP) I saw and evaluated the patient. She underwent colonoscopy this afternoon which was notable for a large polyp in the cecum. This was removed with a piecemeal technique as described in my prior note. For the patient's jaundice and biliary stricture I would suggest further evaluation with MRI to help guide us for tomorrow's planned endoscopic ultrasound. Based on the appearance on CT and ERCP I wonder if the patient may have a cholangiocarcinoma. I have discussed the risks of EUS to include bleeding, infection, perforation, insufficient cellularity and need for follow-up procedures. Please note endoscopic ultrasound after an ERCP is somewhat more difficult as the stent does cause difficulty with the ultrasound evaluation. (Zachary Hart, DO)
[2018-03-25] MEDS ORDERED: LANTUS PER UNIT CHARGE SQ ONE ×2 (10:00→21:00)
[2018-03-25] MEDS ORDERED: PROPOFOL IV EMULSION 10 MG/ML 20 ML VIAL ONE ×2 (10:04→10:45)
[2018-03-25] MEDS ORDERED: LIDOCAINE HCL 2% 2 ML VIAL (20MG/ML) ONE (10:04)
--- NOTE | 2018-03-25 10:08 | Clinical Documentation Query ---
CLINICAL DOCUMENTATION QUERY Program Support Specialist has stated, "Near-syncope -Likely secondary to dehydration and possible sepsis from ascending cholangitis." Unless documented by attending the diagnosis may not be coded. In your clinical opinion is this patient being managed for: ( ) Sepsis in setting of Cholangitis (x) SIRS in setting of obstructive cholangitis, pancreatitis, GI bleed and likely pancreatic mass ( ) Not Agree Please clarify and document your clinical opinion in the progress notes and discharge summary. Terms such as "probable", "suspected", "likely", "questionable", "possible", or "still to be ruled out" are acceptable. IF IN AGREEMENT, YOU MUST DOCUMENT ABOVE DIAGNOSTIC STATEMENT IN DAILY PROGRESS NOTES AND DISCHARGE SUMMARY. This document is not part of the patient's record. Thank You, Roberto Gonzalez, RN [phone] & via [email or web address]
--- NOTE | 2018-03-25 10:18 | Endo History and Physical ---
History & Physical Date of Service: Mar 25, 2018. Chief Complaint: Dark sticky stool Referring Physician: History of Present Illness The patient was admitted early Sunday morning for melena new onset jaundice. Colonoscopy was arranged by my partner has no upper endoscopic source was identified or source was identified with sigmoidoscopy yesterday. He has arranged and colonoscopy for further evaluation. Past Medical History Diabetes, Anxiety, Hypertension, Thrombophlebitis Past Surgical History Hx Cardiac Surgery: No Hx Internal Defibrillator: No Hx Pacemaker: No Hx Abdominal Surgery: Yes (APPENDIX) Hx Post-Op Nausea and Vomiting: No Hx Cancer Surgery: No Hx Thoracic Surgery: No Hx Orthopedic: No Hx Urinary Tract Surgery: No Social History Smoking Status: Never Smoker Hx Substance Use: No Hx Alcohol Use: No Allergies Coded Allergies: Statins (Verified Allergy, Unknown, muscle pain,weakness, 03/24/18) Current Medications Reported Home Medications Medications Dose Route/Sig Max Daily Dose Days Date Category Dose Instructions Iron (Ferrous Sulfate) Unknown Strength Tab Unknown Dose PO BID 03/24/18 Reported Coumadin (Warfarin Sodium) 5 Mg Tab 5 Mg PO [id number] 03/24/18 Reported takes daily except sundays Coumadin (Warfarin Sodium) 1 Mg Tab 7 Mg PO WK 03/24/18 Reported takes on sunday Zantac (Ranitidine HCl) 150 Mg Tab 150 Mg PO BID 06/14/17 Reported Vitamin D (Cholecalciferol) 1,000 Unit Tab 1 Tab PO BID 06/04/17 Reported Prinivil (Lisinopril) 5 Mg Tab 5 Mg PO QPM 03/19/17 Reported Excedrin Tension Headache (Acetaminophen-Caffeine) 1 Tab Tab PO DAILY PRN 03/15/15 Reported Glucophage (Metformin Hcl) 850 Mg Tab 850 Mg PO TIDM 02/23/15 Reported Vital Signs Weight (Kilograms): 70.200 Height (Feet): 5 Height (Inches): 3 Date Time Temp Pulse Resp B/P (MAP) Pulse Ox O2 Delivery O2 Flow Rate FiO2 03/25/18 09:55 37.7 80 24 132/75 (94) 96 Room Air 03/25/18 09:01 76 24 114/64 (81) 92 Room Air 03/25/18 08:01 36.8 76 23 112/65 (81) 93 Room Air 03/25/18 07:01 82 24 122/61 (81) 92 Room Air 2018 04:01 36.7 80 22 112/57 (75) 820/18 04:00 79 22 93 8/20/18 03:01 85 23 142/69 (93) 85 8/20/18 03:00 86 21 93 8/20/18 02:02 90 22 155/82 (106) 95 820/18 02:00 86 22 98 820/18 01:01 36.7 86 25 157/79 (105) 89 820/18 01:00 80 21 95 8/20/18 00:02 75 24 169/69 (102) 82018 00:00 76 17 94 819/18 23:25 73 20 155/85 (108) 96 819/18 23:16 77 23 155/85 (108) 94 8/19/18 23:01 76 22 155/79 (104) 97 819/18 23:00 79 17 96 8/18 22:32 36.9 79 24 142/94 (110) 97 819/18 22:16 36.7 79 24 142/94 (110) 97 819/18 22:09 79 18 95 8/18 22:01 82 26 167/85 (112) 96 8/18 21:54 36.7 78 24 98 8/19/18 21:46 80 23 157/81 (106) 97 8/19/18 21:39 82 23 98 8/19/18 21:31 36.7 77 15 155/72 (99) 83 8/19/18 21:30 83 20 155/72 (99) 96 Room Air 03/24/18 21:24 91 23 173/77 (109) 94 819/18 21:15 83 16 117/82 (94) 95 Room Air 819/18 21:09 84 19 96 8/19/18 21:01 36.7 78 26 117/82 (94) 96 819/18 21:00 79 16 148/73 (98) 95 Room Air 819/18 21:00 80 27 119/80 (93) 98 8/19/18 20:56 82 23 148/73 (98) 94 8/19/18 20:54 78 24 119/80 98 Room Air 8/19/18 20:54 82 30 98 8/19/18 20:51 80 27 119/80 (93) 91 8/19/18 20:49 80 29 132/62 99 Room Air 8/19/18 20:48 79 25 132/62 (85) 98 8/19/18 20:48 79 25 132/62 (85) 98 8/19/18 20:45 81 22 93 8/19/18 20:44 81 24 122/82 95 Room Air 8/19/18 20:44 36.9 83 31 122/81 (95) 94 8/19/18 20:44 83 31 122/81 (95) 94 8/19/18 20:41 82 18 153/96 (115) 99 8/19/18 20:41 82 18 153/96 (115) 99 8/19/18 20:39 84 20 99 8/19/18 20:31 79 18 158/77 (104) 99 8/19/18 20:31 79 18 158/77 (104) 99 8/19/18 20:30 75 20 98 8/19/18 20:26 36.9 75 20 149/90 98 2.0 8/19/18 20:24 78 19 99 8/19/18 20:16 79 19 149/90 (109) 99 8/19/18 20:15 36.9 77 19 100 8/19/18 20:03 79 18 147/69 (95) 819/18 20:00 83 18 8/19/18 20:00 93 8/19/18 19:46 84 24 160/83 (108) 819/18 19:45 84 21 8/19/18 19:31 77 18 144/87 (106) 96 8/19/18 19:30 77 16 96 8/19/18 19:17 36.9 83 22 142/72 (95) 95 8/19/18 19:15 79 21 97 8/19/18 19:12 82 18 162/81 (108) 96 8/19/18 19:00 79 8/19/18 18:45 37.2 85 20 154/78 95 8/19/18 18:26 37.2 84 18 145/77 8/19/18 18:17 37.4 80 18 121/75 8/19/18 17:50 37.2 84 18 121/72 95 8/19/18 17:24 37.2 76 20 109/57 (74) 96 Room Air 03/24/18 17:00 37.1 75 20 106/65 (79) 100 Nasal Cannula 1.0 03/24/18 16:50 37.1 75 20 106/65 100 1.0 03/24/18 16:22 37.1 74 20 112/69 (83) 98 Nasal Cannula 1.0 03/24/18 16:20 37.1 74 20 112/69 98 1.0 03/24/18 16:20 37.1 74 20 112/69 98 1.0 03/24/18 16:05 37.2 71 16 116/75 100 2.0 03/24/18 16:05 37.2 71 16 116/75 (89) 100 Nasal Cannula 2.0 03/24/18 16:05 37.2 71 16 116/75 (89) 100 Nasal Cannula 2.0 03/24/18 16:05 37.2 71 16 116/75 100 2.0 03/24/18 15:40 37.0 70 18 127/53 100 Nasal Cannula 2 03/24/18 15:30 78 20 132/51 100 Nasal Cannula 2 03/24/18 15:25 36.8 71 18 107/62 100 03/24/18 15:20 72 20 107/62 100 Nasal Cannula 2 03/24/18 15:10 70 19 124/49 99 Nasal Cannula 2 03/24/18 15:00 76 20 128/54 100 Nasal Cannula 2 03/24/18 14:50 71 16 122/84 100 Nasal Cannula 2 03/24/18 14:40 82 21 134/59 99 Nasal Cannula 2 03/24/18 14:32 36.2 95 22 122/72 92 Oxymask 10 03/24/18 11:31 37.0 67 18 95/54 (68) 96 Room Air Physical Exam General Appearance: no apparent distress Respiratory/Chest: Auscultation: breath sounds normal Cardiovascular: Heart Auscultation: II/ PHILIP, pertinent finding (irregular) Abdomen: Inspection & Palpation: soft Assessment and Plan Anoscopy arranged by evaluation of melena. Based on the patient' s history I suspect the melena was most likely related to her over anticoagulation upon presentation. We discussed the risks of colonoscopy to include bleeding, infection, perforation, pain and missed lesions within the colon.
--- NOTE | 2018-03-25 10:47 | Progress Note ---
Progress Note Date of Service Mar 25, 2018. Progress Note The patient underwent a colonoscopy this afternoon. Overall the bowel operation was somewhat poor. We did identify a large polyp in the cecum. This was removed with piecemeal technique. Recommendation Await pathology results Repeat colonoscopy in 6 months Avoid use of anticoagulants and antiplatelet agents for 1 week please Endoscopic ultrasound to be arranged tomorrow to evaluate the suspected pancreatic or biliary mass.
--- NOTE | 2018-03-25 10:50 | GI REPORT ---
Patient Name: Aylin Burgess Procedure Date: 03/25/2018 10:04 AM Date of : 1935 Admit Type: Inpatient Age: 82 Gender: Female Attending MD: Zachary Hart DO Procedure: Colonoscopy Providers: Zachary Hart DO Referring MD: Gabrielle Herron Indications: Melena Medicines: Monitored Anesthesia Care Complications: No immediate complications. Estimated blood loss: Minimal. Estimated Blood Loss: Estimated blood loss was minimal. Procedure: Pre-Anesthesia Assessment: - Prior to the procedure, a History and Physical was performed, and patient medications, allergies and sensitivities were reviewed. The patient's tolerance of previous anesthesia was reviewed. - The risks and benefits of the procedure and the sedation options and risks were discussed with the patient. All questions were answered and informed consent was obtained. - Patient identification and proposed procedure were verified prior to the procedure by the physician, the nurse and the breaker layer. The procedure was verified in the procedure room. - Pre-procedure physical examination revealed no contraindications to sedation. - ASA Grade Assessment: III - A patient with severe systemic disease. - After reviewing the risks and benefits, the patient was deemed in satisfactory condition to undergo the procedure. - The anesthesia plan was to use monitored anesthesia care (MAC). - Immediately prior to administration of medications, the patient was re-assessed for adequacy to receive sedatives. - The heart rate, respiratory rate, oxygen saturations, blood pressure, adequacy of pulmonary ventilation, and response to care were monitored throughout the procedure. - The physical status of the patient was re-assessed after the procedure. After I obtained informed consent, the scope was passed under direct vision. Throughout the procedure, the patient's blood pressure, pulse, and oxygen saturations were monitored continuously. The scope was introduced through the anus and advanced to the terminal ileum. The colonoscopy was performed without difficulty. The patient tolerated the procedure well. The quality of the bowel preparation was fair. Findings: The perianal and digital rectal examinations were normal. Pertinent negatives include normal sphincter tone. The terminal ileum appeared normal. A 20 mm polyp was found in the cecum. The polyp was sessile. The polyp was removed with a saline injection-lift technique using a hot snare. The polyp was removed with a piecemeal technique using a hot snare. Resection and retrieval were complete. Area was tattooed with an injection of 2 mL of Spot (carbon black). Estimated blood loss was minimal. Internal hemorrhoids were found during retroflexion. The hemorrhoids were mild. The exam was otherwise without abnormality. Impression: - Preparation of the colon was fair. - The examined portion of the ileum was normal. - One 20 mm polyp in the cecum, removed using injection-lift and a hot snare and removed piecemeal using a hot snare. Resected and retrieved. Tattooed. - Internal hemorrhoids. - The examination was otherwise normal. Recommendation: - [facility]. - Full liquid diet today. - Await pathology results. - Repeat colonoscopy in 6 months for surveillance after piecemeal polypectomy. Zachary Hart D.O. Zachary Hart, DO 03/25/2018 10:50:00 AM This report has been signed electronically. Note Initiated On: 03/25/2018 10:04 AM Number of Addenda: 0 I attest to the content of the Intraoperative Record and orders documented therein, exceptions below {[id number]}
[2018-03-25] MEDS ORDERED: ENDOSCOPIC MARKER 5 ML SYR ONE (10:53)
--- NOTE | 2018-03-25 11:24 | Anesthesiology Progress Note ---
Anesthesia Post Op Note Date & Time Mar 25, 2018 at 11:24 Vital Signs Pain Intensity: 0.0 Vital Signs Past 12 Hours Date Time Temp Pulse Resp B/P (MAP) Pulse Ox O2 Delivery O2 Flow Rate FiO2 03/25/18 11:01 78 24 121/76 (91) 95 Room Air 2.0 03/25/18 10:46 36.7 78 24 108/64 (79) 95 Room Air 2.0 03/25/18 09:55 37.7 80 24 132/75 (94) 96 Room Air 03/25/18 09:01 76 24 114/64 (81) 92 Room Air 03/25/18 08:01 36.8 76 23 112/65 (81) 93 Room Air 03/25/18 08:00 Room Air 03/25/18 08:00 Room Air 03/25/18 07:01 82 24 122/61 (81) 92 Room Air 03/25/18 04:01 36.7 80 22 112/57 (75) 03/25/18 04:00 79 22 93 03/25/18 03:01 85 23 142/69 (93) 85 03/25/18 03:00 86 21 93 03/25/18 02:02 90 22 155/82 (106) 95 03/25/18 02:00 86 22 98 03/25/18 01:01 36.7 86 25 157/79 (105) 89 03/25/18 01:00 80 21 95 03/25/18 00:02 75 24 169/69 (102) 03/25/18 00:00 76 17 94 03/24/18 23:25 73 20 155/85 (108) 96 Notes Mental Status: alert / awake / arousable, participated in evaluation Pt Amnestic to Procedure: Yes Nausea / Vomiting: adequately controlled Pain: adequately controlled Airway Patency, RR, SpO2: stable & adequate BP & HR: stable & adequate Hydration State: stable & adequate Anesthetic Complications: no major complications apparent
[2018-03-25] MEDS: PANTOprazole INJ 40 MG in SYRINGE 0 ML IV SCH ×2 (11:52→20:44)
[2018-03-25] MEDS: NORMOSOL R 1,000 ML IV SCH ×2 (12:26→20:44)
[2018-03-25 12:44] LABS: HEMATOCRIT 26.9 % (37-47); HEMOGLOBIN 9.1 g/dL (12.0-16.0)
--- NOTE | 2018-03-25 14:43 | Pharmacy Progress Note ---
Glycemic: Assessment & Plan Date of Service Mar 25, 2018. Assessment & Plan The patient is currently receiving 2 units of insulin per day. BSGs ranging 137 - 198 mg/dl over the past 24hrs. Patient was ordered a full liquids diet around 11am but will be made NPO at midnight tonight. * Basal insulin: Lantus 7 units @1000 (given more around lunchtime due to procedure); Conservative lantus scale for this evening (5 units if > 200 mg/dL) * Correctional Insulin: Novolog Correction per scale q6h Goal Range: Low 120 mg/dL - High 150 mg/dL Correction Factor: 30 mg/dL/unit * Prandial insulin: Per carb ratio of 1 unit per 11 grams CHO consumed Pharmacy will continue to monitor patient daily and write orders per [facility] inpatient glycemic control protocol. Thanks. * Please note that the plan above was derived based on current level of insulin resistance and hospital stress. These recommendations are appropriate for inpatient admission only. Plan of care upon discharge will need to be reassessed to avoid potential outpatient hypo/hyperglycemia.
--- NOTE | 2018-03-25 15:33 | DIAGNOSTIC IMAGING REPORT ---
MRCP CLINICAL HISTORY: Jaundice COMPARISON STUDY: CT scan dated 03/24/2018 FINDINGS: There are bilateral dependent lower lobe pulmonary airspace opacities. There is mild distention of the gallbladder. There is trace pericholecystic fluid There is minimal dilatation of the central intrahepatic ducts. There are several equivocal intrahepatic biliary ductal strictures. There are no filling defects suspicious for calculi. There is an indwelling biliary enteric stent. The common bile duct is dilated measuring 9 mm. There is a distal common bile duct stricture measuring 2 cm in length. There is no significant pancreatic ductal dilatation. IMPRESSION: 1. Distal common bile duct structure measuring 2 cm in length 2. Indwelling biliary enteric stent 3. 9 mm common bile duct. 4. There are several equivocal intrahepatic biliary ductal strictures 5. No calculi identified. 6. No evidence of pancreatic ductal dilatation 7. Mild gallbladder distention with trace pericholecystic fluid Electronically signed by: Wai Fuller M.D. 03/25/2018 3:32 PM Dictated Date/Time: 03/25/2018 3:23 PM
--- NOTE | 2018-03-25 16:45 | Anesthesiology Progress Note ---
Anesthesia Progress Note Date of Service Mar 25, 2018. Progress Notes The patient is an 82-year-old female with pancreatitis and ascending cholangitis secondary to obstructing lesion likely within the head of the pancreas s/p ERCP on 03/24/18. The patient is scheduled for EUS with Dr. Hart tomorrow. She PMH is significant for HTN, DLD, DVT x3, carotid artery stenosis , GERD, DM and anemia. The patient tolerated anesthesia without problems for her ERCP and for her colonoscopy which she had today. Her labs are remarkable only for Hgb of 8.4. Her EKG does not show any ischemic changes. She had a stress echo 06/2017 that was negative for acute ischemia and her EF was 55-60%. She had good functional status prior to admission. The patient is sitting up in bed with her at bedside. She is comfortable without complaints and all her vital signs are stable. She appears optimized for her procedure tomorrow. I explained risks/benefits of GA with her but did not have her sign consent as she had sedation earlier today for her colonoscopy. Dr. Cabral and Dr. Hutchinson were notified. All questions were answered. I instructed her to remain NPO after midnight tonight except for sip of water with medication.
--- NOTE | 2018-03-25 19:09 | Progress Note ---
Internal Med Progress Note Date of Service: Mar 25, 2018. Provider Documentation: SUBJECTIVE: No melena, bright red blood per rectum, or dark stool overnight Hemodynamically stable Posttransfusion hemoglobin improved to 9.1 Serial H&H shows no acute drop suggestive of hemorrhage or active GI bleeding Underwent colonoscopy today Diet advanced to full liquid Tolerating well Stable to be transferred to telemetry floor OBJECTIVE: Vital Signs-as noted below Exam: General-no apparent distress Eyes-sclera anicteric, improved from prior exam ENT-moist oral mucosa Neck-neck supple, no jugular venous distention, trachea midline, no thyromegaly Lungs-clear to auscultate, no wheeze or rales Heart-regular S1 and S2 Abdomen-soft, no tenderness, bowel sounds diminished Extremities-no extremity rash or deformity, no lower extremity edema Skin-positive for jaundice/however improved since yesterday Neuro-no focal neurological deficit, alert awake oriented Lab data as noted below. 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 : hx of weeks of weakness /fatigue /poor appetite presented with Jaundice /Hyperbilirubinemia T New 7 /D New 6 with elevated liver enzymes/coagulopathy INR > 10 CT abdomen /pelvis shows CBD ductal dilatation and obstruction possible due to mass at Head of pancreas GI consulted , appreciate input -scheduled for ERCP , coagulopathy reversed with IV 10 mg vitamin K and 2 units of FFP pre procedure INR was 1.2 ERCP 03/24/18 shows : distal common bile duct stricture, biliary ductal dilatation s/p placement of a common bile duct stent purulent biliary drainage noted during ERCP No evidence of Sepsis -normal white count, normal lactic , pro calcitonin level meets SIRS criteria in setting of obstructive cholangitis , pancreatitis / likely pancreatic mass /GI bleed ordered empiric Abx with IV Zosyn MRCP of abdomen shows : 1. Several equivocal intrahepatic biliary ductal strictures. No filling defect suspicious for calculi. 2. Common bile duct dilated measuring 9 mm 3. There is a distal common bile duct stricture measuring 2 cm in length. No evidence of pancreatic ductal dilatation 4. Biliary ductal stent present GI following EUS with biopsy in a.m. GI BLEED WITH MELENA Developed active GI bleed yesterday evening 03/24/18 Patient was transferred to ICU Bedside EGD and flexible sigmoidoscopy done by GI EGD 03/24/2018 showed:-Normal esophagus Nonbleeding erosive gastropathy Normal duodenal bulb, Flexible sigmoidoscopy: 03/24/2018 preparation of colon was poor Dark red blood in the rectum, and the sigmoid colon, and in the descending colon indicating a lower GI bleed source (likely diverticular) -Patient had bowel prep with GoLYTELY overnight Had repeat colonoscopy this Morning 03/25/[address] Hart Shows -Examined portion of the ileum was normal. -one 20 mm polyp in the cecum, resected -Internal hemorrhoids Patient was ordered for full liquid diet Await pathology results Will need repeat colonoscopy in 6 months for surveillance Prior colonoscopy on 06/2017 with resection of polyp : Pathology showed : Tubular adenoma ACUTE BLOOD LOSS ANEMIA due to above Hemoglobin dropped from 8.9-> 6.2 With active melena/hematochezia Status post 2 units of PRBC transfusion Posttransfusion hemoglobin remains fairly stable 9.5-> 9.1 Monitor H&H ELEVATED LIVER ENZYMES/TRANSAMINITIS due to obstructive jaundice /possible cholangiocarcinoma presented with Direct Bilirubinemia/elevated AST/ALT improved after biliary stent placement Total bilirubin improved 7.1-> 4- >2.Direct bilirubin: 6 ->3.3 ->1.7 AST: 238-> 183-> 117 ALT: 337-> 254-> 210 Lipase improved: 4260-> 802 Follow daily lab COAGULOPATHY Was on Chronic anticoagulation with Coumadin due to hx of lower ext recurrent DVT Presented with INR > 10 INR reverse with IV Vit K and FFP INR 1.1 today HYPERTENSION BP borderline low ;SBP ~100 lisinopril on hold -in setting of GI Bleed /acute illness TYPE 2 DIABETES Presents with blood sugar more than 200 possible due to acute illness Last hemoglobin A1c on 01/29/2018 on 7.1-shows fairly well glycemic control Home medication : metformin 850 mg by mouth 3 times daily Metformin is kept on hold,-n.p.o. status/acute illness/status post contrast exposure for CT abdomen pelvis Insulin sliding scale Appreciate pharmacy consult for glycemic management PRIOR HISTORY OF RECURRENT LOWER EXTREMITY DVT Was on Coumadin INR was 3.1 on 02/26/2018 Follows with coagulation clinic [facility] Presents with INR elevated more than 10 pt reports of taking Coumadin as directed by anticoagulation clinic Last dose of Coumadin was 5 mg on 03/23/18 evening Possible coagulopathy secondary to abnormal liver function caused by biliary obstruction Coumadin discontinued Given vitamin K/FFP to reverse INR GERD IV Protonix DYSLIPIDEMIA Was on fenofibrate 160 mg p.o. daily On hold secondary to n.p.o. status/GI bleed/transaminitis CODE STATUS: DNR /DNI-discussed with patient DVT PROPHYLAXIS SCD and teds Anticoagulation avoided in the setting of active GI bleeding/acute blood loss anemia DISPOSITION Patient lives at home with her Was independent in her ADLs, will need PT OT evaluation when clinically appropriate Social service consulted for discharge planning Vital Signs: Date Time Temp Pulse Resp B/P (MAP) Pulse Ox O2 Delivery O2 Flow Rate FiO2 03/25/18 20:03 95 Room Air 2.0 03/25/18 19:09 36.4 77 24 131/70 (90) 95 Room Air 03/25/18 17:00 Room Air 03/25/18 16:54 36.9 71 23 94 03/25/18 16:01 36.9 71 23 131/54 (79) 94 Room Air 03/25/18 15:20 76 21 140/68 (92) 95 Room Air 03/25/18 14:01 75 20 142/74 (96) 96 Room Air 03/25/18 13:01 72 17 134/69 (90) 96 Room Air 03/25/18 12:01 36.7 75 20 143/69 (93) 96 Room Air 03/25/18 11:37 80 20 126/63 (84) 96 Room Air 03/25/18 11:16 75 18 125/81 (96) 95 Room Air 03/25/18 11:01 78 24 121/76 (91) 95 Room Air 2.0 03/25/18 10:46 36.7 78 24 108/64 (79) 95 Room Air 2.0 03/25/18 09:55 37.7 80 24 132/75 (94) 96 Room Air 03/25/18 09:01 76 24 114/64 (81) 92 Room Air 03/25/18 08:01 36.8 76 23 112/65 (81) 93 Room Air 03/25/18 08:00 Room Air 03/25/18 08:00 Room Air 03/25/18 07:01 82 24 122/61 (81) 92 Room Air 03/25/18 04:01 36.7 80 22 112/57 (75) 03/25/18 04:00 79 22 93 03/25/18 03:01 85 23 142/69 (93) 85 03/25/18 03:00 86 21 93 03/25/18 02:02 90 22 155/82 (106) 95 03/25/18 02:00 86 22 98 03/25/18 01:01 36.7 86 25 157/79 (105) 89 03/25/18 01:00 80 21 95 03/25/18 00:02 75 24 169/69 (102) 03/25/18 00:00 76 17 94 03/24/18 23:25 73 20 155/85 (108) 96 03/24/18 23:16 77 23 155/85 (108) 94 03/24/18 23:01 76 22 155/79 (104) 97 03/24/18 23:00 79 17 96 03/24/18 22:32 36.9 79 24 142/94 (110) 97 03/24/18 22:16 36.7 79 24 142/94 (110) 97 03/24/18 22:09 79 18 95 03/24/18 22:01 82 26 167/85 (112) 96 03/24/18 21:54 36.7 78 24 98 03/24/18 21:46 80 23 157/81 (106) 97 03/24/18 21:39 82 23 98 03/24/18 21:31 36.7 77 15 155/72 (99) 83 03/24/18 21:30 83 20 155/72 (99) 96 Room Air Lab Results: Results Past 24 Hours Test 03/24/18 21:56 03/25/18 00:03 03/25/18 01:02 03/25/18 04:51 Range/Units Bedside Glucose 137 150 70-90 mg/dl Hemoglobin 9.5 8.4 12.0-16.0 g/dL Hematocrit 28.3 25.1 37-47 % White Blood Count 9.45 4.8-10.8 K/uL Red Blood Count 2.96 4.2-5.4 M/uL Mean Corpuscular Volume 84.8 80-100 fL Mean Corpuscular Hemoglobin 28.4 25-34 pg Mean Corpuscular Hemoglobin Concent 33.5 32-36 g/dl RDW Standard Deviation 45.7 36.4-46.3 fL RDW Coefficient of Variation 14.9 11.5-14.5 % Platelet Count 206 130-400 K/uL Mean Platelet Volume 10.6 7.4-10.4 fL Prothrombin Time 11.4 9.0-12.0 SECONDS Prothromb Time International Ratio 1.1 0.9-1.1 Sodium Level 142 136-145 mmol/L Potassium Level 4.0 3.5-5.1 mmol/L Chloride Level 107 98-107 mmol/L Carbon Dioxide Level 25 21-32 mmol/L Anion Gap 10.0 3-11 mmol/L Blood Urea Nitrogen 17 7-18 mg/dl Creatinine 0.95 0.60-1.20 mg/dl Est Creatinine Clear Calc Drug Dose 43.6 ml/min Estimated GFR () 65.1 Estimated GFR (Non- 56.2 BUN/Creatinine Ratio 17.9 05-25 Random Glucose 146 70-99 mg/dl Calcium Level 8.5 8.5-10.1 mg/dl Total Bilirubin 2.5 0.2-1 mg/dl Direct Bilirubin 1.7 0-0.2 mg/dl Aspartate Amino Transf (AST/SGOT) 117 15-37 U/L Alanine Aminotransferase (ALT/SGPT) 210 12-78 U/L Alkaline Phosphatase 284 45-117 U/L Total Protein 6.2 6.4-8.2 gm/dl Albumin 2.9 3.4-5.0 gm/dl Globulin 3.3 2.5-4.0 gm/dl Albumin/Globulin Ratio 0.9 0.9-2 Test 03/25/18 05:34 03/25/18 11:39 03/25/18 12:26 03/25/18 12:27 Range/Units Bedside Glucose 161 154 70-90 mg/dl Hemoglobin 9.1 12.0-16.0 g/dL Hematocrit 26.9 37-47 % Test 03/25/18 15:24 03/25/18 17:11 03/25/18 20:32 Range/Units Bedside Glucose 120 175 70-90 mg/dl Lipase 802 73-393 U/L
--- NOTE | 2018-03-25 19:15 | Progress Note ---
Progress Note Date of Service Mar 25, 2018. Progress Note ATTENDING ADDENDUM Patient has history of recurrent lower extremity DVT in 1995, November, March 2000 Was on lifelong anticoagulation with Coumadin Anticoagulation reversed, secondary to active GI bleed, acute blood loss anemia Patient possibly would not be a candidate for future anticoagulation Lower extremity Doppler ordered If there is evidence of DVT, vascular surgery will be consulted for IVC filter placement in a.m.
[2018-03-25] MEDS ORDERED: VANCOMYCIN CONSULT ACTIVE PRN ×2 (22:30)
[2018-03-25] MEDS ORDERED: VANCOMYCIN IV 1,750 MG in SODIUM CHLORIDE 0.9% 500ML 500 ML IV ONE (22:45)
--- NOTE | 2018-03-25 22:50 | DIAGNOSTIC IMAGING REPORT ---
BILATERAL LOWER EXTREMITY VENOUS DOPPLER CLINICAL HISTORY: rule out DVT COMPARISON STUDY: No previous studies for comparison. TECHNIQUE: Sonography of the deep venous system of the bilateral lower extremities was performed. Compression and augmentation were evaluated. FINDINGS: The bilateral common femoral, superficial femoral and popliteal veins were compressible. Augmentation was normal. Flow was shown within the deep calf vessels. IMPRESSION: No evidence of deep venous thrombus within the bilateral lower extremities. Electronically signed by: Fernando Arboleda M.D. 03/25/2018 10:49 PM Dictated Date/Time: 03/25/2018 10:48 PM
--- NOTE | 2018-03-25 22:53 | Pharmacy Progress Note ---
Pharmacy Abx Initial Consult Date of Service Mar 25, 2018. Pharmacy Dosing Scope Date of Consult: 03/25/18 Consultation requested by: Dr. Herron Pharmacy is consulted to initiate vancomycin IV dosing therapy, order appropriate labs and adjust drug dose/frequency. Subjective The patient is a 82 year old female admitted on Mar 24, 2018 at 07:27. Objective Height (Feet): 5 Height (Inches): 3.00 Weight (Kilograms): 70.200 Vital Signs (Past 12Hrs) Vital Signs Past 12 Hours Date Time Temp Pulse Resp B/P (MAP) Pulse Ox O2 Delivery O2 Flow Rate FiO2 03/25/18 20:03 95 Room Air 2.0 03/25/18 19:09 36.4 77 24 131/70 (90) 95 Room Air 03/25/18 17:00 Room Air 03/25/18 16:54 36.9 71 23 94 03/25/18 16:01 36.9 71 23 131/54 (79) 94 Room Air 03/25/18 15:20 76 21 140/68 (92) 95 Room Air 03/25/18 14:01 75 20 142/74 (96) 96 Room Air 03/25/18 13:01 72 17 134/69 (90) 96 Room Air 03/25/18 12:01 36.7 75 20 143/69 (93) 96 Room Air 03/25/18 11:37 80 20 126/63 (84) 96 Room Air 03/25/18 11:16 75 18 125/81 (96) 95 Room Air 03/25/18 11:01 78 24 121/76 (91) 95 Room Air 2.0 Lab Results (24Hrs) Laboratory Tests (24 Hours) Test 03/25/18 04:51 White Blood Count 9.45 K/uL (4.8-10.8) Micro Results Date/Time Source Procedure Growth Status 03/25/18 22:06 Blood Blood Culture Pending Ordered 03/25/18 22:06 Blood Blood Culture Pending Ordered 03/24/18 08:40 Blood Blood Culture - Preliminary Gram Positive Bacilli Resulted 03/24/18 08:25 Blood Blood Culture Pending Received 03/24/18 19:25 Nasal MRSA DNA Surveillance Screen - Final Specimen Negative for MRSA by DNA Probe Complete Risk Factors for Resistance * Antimicrobial use within the last 90 days (Zosyn started 03/24/18) Assessment & Plan Assessment 82 year old female currently admitted with GI who has 1/2 blood cultures positive for Gram positive bacilli Plan vancomycin for treatment of bacteremia Vancomycin IV * Loading dose: 1750 mg (25 mg/kg) * Maintenance dose: 1000 mg IV (15 mg/kg) every 18 hours (population pharmacokinetics suggest a half-life of 16.5 hours with elimination constant of 0.042 hr-1) * Goal trough level for bacteremia : 15 to 20 mcg/mL * Trough not ordered secondary to uncertain length of therapy as well as extended interval * An extended dosing interval has been selected due to likelihood of drug accumulation patient with h/o CKD. Piperacillin/tazobactam (GI indication) * 3.375 g bolus administered over 30 minutes, then 3.375 g IV extended infusion every 8 hours for CrCl greater than 20 mL/min Pharmacy will continue to follow and will adjust dose/frequency as necessary. Thank you.
[2018-03-25 23:14] LABS: HEMATOCRIT 26.8 % (37-47)
[2018-03-26 04:00] VITALS: BP 121/60; PULSE 66; TEMP 36.9; O2SAT 95
[2018-03-26] MEDS: PIPERACILL/TAZOBAC IV 3.375 GM in DEXTROSE 5% 100ML 100 ML IV SCH ×3 (05:16→20:54)
[2018-03-26 05:42] LABS: HEMATOCRIT 23.9 % (37-47); HEMOGLOBIN 8.2 g/dL (12.0-16.0); MEAN CELL VOLUME 86.6 fL (80-100); MEAN CORPUSCULAR HEMOGLOBIN 29.7 pg (25-34); MEAN CORPUSCULAR HGB CONC 34.3 g/dl (32-36); MEAN PLATELET VOLUME 10.4 fL (7.4-10.4); PLATELET COUNT 208 K/uL (130-400); RED CELL DISTRIBUTION WIDTH CV 15.3 % (11.5-14.5); RED CELL DISTRIBUTION WIDTH SD 47.6 fL (36.4-46.3); WHITE BLOOD COUNT 7.78 K/uL (4.8-10.8)
[2018-03-26] MEDS: INSULIN ASPART 100 UNITS/ML 3 ML PEN SC SCH ×4 (05:58→20:57)
[2018-03-26 06:22] LABS: CREATININE 0.86 mg/dl (0.60-1.20)
[2018-03-26 06:23] LABS: ALBUMIN 2.6 gm/dl (3.4-5.0); CALCIUM 8.3 mg/dl (8.5-10.1); POTASSIUM 3.6 mmol/L (3.5-5.1); TOTAL PROTEIN 5.9 gm/dl (6.4-8.2)
[2018-03-26 07:35] VITALS: BP 136/64; PULSE 73; TEMP 36.9; O2SAT 96
[2018-03-26] MEDS: NORMOSOL R 1,000 ML IV SCH (08:57)
[2018-03-26] MEDS: PANTOprazole INJ 40 MG in SYRINGE 0 ML IV SCH ×2 (08:57→20:54)
[2018-03-26] MEDS: INSULIN GLARGINE SOLOSTAR 100 UNITS/ML 3 ML PEN SC SCH (09:37)
--- NOTE | 2018-03-26 10:11 | Medical Consult ---
Consultation Date of Consultation: Mar 26, 2018. Attending Physician: Gabrielle Herron M.D. 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 Blood cultures from admission growing gram- positive bacilli, patient currently being treated with vancomycin and Zosyn. Pro-calcitonin normal. White count normal. Follow-up blood cultures are pending. Patient currently denies any abdominal pain. Still feeling weak and fatigued. Awaiting further GI procedure. Patient has remained afebrile in the hospital except for one temperature spike yesterday at 9:55. Past Medical/Surgical History Medical Problems: (1) Anemia Status: Acute (2) Anticoagulated on Coumadin Status: Acute (3) GI bleed Status: Acute (4) Pancreatitis Status: Acute (5) Precordial chest pain Status: Acute (6) Supratherapeutic INR Status: Acute (7) Syncope Status: Acute Medical Problems: (1) Carotid artery narrowing (2) Chest pain (3) Diabetes (4) Diabetes (5) HTN (hypertension) (6) Hypercholesteremia (7) Hypertension (8) Pancreatitis due to biliary obstruction (9) Pancreatitis due to obstruction of pancreatic duct Family History Patient reports no known family medical history. Social History Smoking Status: Never Smoker Marital Status: Housing Status: lives with significant other Occupation Status: retired Allergies Coded Allergies: Statins (Verified Allergy, Unknown, muscle pain,weakness, 03/24/18) Current Inpatient Medications Current Inpatient Medications Medications (Trade) Dose Ordered Sig/Lucy Route Start Time Stop Time Status Last Admin Dose Admin Ioversol (Optiray 320) 125 ml UD PRN IV 03/24/18 06:30 03/28/18 06:29 Ondansetron HCl (Zofran Inj) 4 mg Q6H PRN IV 03/24/18 07:30 04/23/18 07:29 Glucose (Glucose 40% Gel) 15-30 GRAMS 15 GRAMS... UD PRN PO 03/24/18 07:45 04/23/18 07:44 Glucose (Glucose Chew Tab) 4-8 Tablets 4 Tabl... UD PRN PO 03/24/18 07:45 04/23/18 07:44 Dextrose (Dextrose 50% 50ML Syringe) 25-50ML 25ML FOR ... UD PRN IV 03/24/18 07:45 04/23/18 07:44 Glucagon (Glucagon Inj) 1 mg UD PRN SQ 03/24/18 07:45 04/23/18 07:44 Carbohydrates (Carbohydrates For Hypoglycemia) 15-30 GRAMS 15 grams if BSG 54-69... UD PRN PO 03/24/18 07:45 04/23/18 07:44 Miscellaneous Information (Consult Glycemic Management Pharmacy) 1 ea UD PRN N/A 03/24/18 08:20 04/23/18 08:19 Piperacillin Sod/ Tazobactam Sod 3.375 gm/Dextrose 115 ml @ 28.75 mls/ hr Q8H IV 03/24/18 14:00 04/03/18 13:59 03/26/18 05:16 28.75 MLS/HR Miscellaneous Information (Consult) 1 ea UD PRN N/A 03/24/18 08:00 04/23/18 07:59 Insulin Aspart (novoLOG ASPART) SLIDING SCALE Q6 SC 03/24/18 09:30 04/23/18 09:29 03/25/18 11:59 1 UNITS Acetaminophen 650 mg/Empty Bag 65 ml @ 260 mls/hr Q6H PRN IV 03/24/18 17:45 04/23/18 17:44 Morphine Sulfate (MoRPHine SULFATE INJ) 1 mg Q4H PRN IV 03/24/18 17:45 04/07/18 17:44 Morphine Sulfate (MoRPHine SULFATE INJ) 2 mg Q4H PRN IV 03/24/18 17:45 04/07/18 17:44 Pantoprazole Sodium 40 mg/ Syringe 10 ml @ 5 mls/min BID@0900,2100 IV 03/25/18 10:30 04/24/18 10:29 03/26/18 08:57 5 MLS/MIN Parenteral Electrolyte Solution 1,000 ml @ 100 mls/hr Q10H IV 03/25/18 12:15 04/24/18 12:14 03/26/18 08:57 100 MLS/HR Vancomycin HCl 1000 mg/Sodium Chloride 270 ml @ 125 mls/hr Q18H IV 03/26/18 17:00 04/09/18 16:59 Vancomycin HCl (Consult) 1 ea UD PRN N/A 03/25/18 22:30 04/24/18 22:29 Insulin Glargine (Lantus Solostar Pen) 7 units QAM SC 03/26/18 09:00 04/25/18 08:59 03/26/18 09:37 7 UNITS Review of Systems All systems were reviewed and are negative except as per HPI Physical Exam Date Time Temp Pulse Resp B/P (MAP) Pulse Ox O2 Delivery O2 Flow Rate FiO2 03/26/18 07:35 36.9 73 24 136/64 (88) 96 Room Air 03/26/18 04:00 36.9 66 18 121/60 (80) 95 Room Air 03/25/18 22:55 36.7 76 20 143/67 (92) 96 Room Air 03/25/18 20:03 95 Room Air 2.0 03/25/18 19:09 36.4 77 24 131/70 (90) 95 Room Air 03/25/18 17:00 Room Air 03/25/18 16:54 36.9 71 23 94 03/25/18 16:01 36.9 71 23 131/54 (79) 94 Room Air 03/25/18 15:20 76 21 140/68 (92) 95 Room Air 03/25/18 14:01 75 20 142/74 (96) 96 Room Air 03/25/18 13:01 72 17 134/69 (90) 96 Room Air 03/25/18 12:01 36.7 75 20 143/69 (93) 96 Room Air 03/25/18 11:37 80 20 126/63 (84) 96 Room Air 03/25/18 11:16 75 18 125/81 (96) 95 Room Air 03/25/18 11:01 78 24 121/76 (91) 95 Room Air 2.0 03/25/18 10:46 36.7 78 24 108/64 (79) 95 Room Air 2.0 General Appearance: WD/WN, no apparent distress Head: normocephalic, atraumatic Eyes: normal inspection, EOMI, sclerae normal ENT: normal ENT inspection, hearing grossly normal, pharynx normal Neck: supple, no adenopathy, thyroid normal, trachea midline Respiratory/Chest: chest non-tender, lungs clear, normal breath sounds, no respiratory distress Cardiovascular: regular rate, rhythm, no gallop, no murmur Abdomen/GI: normal bowel sounds, non tender, soft, no organomegaly Back: normal inspection, no CVA tenderness Extremities/Musculoskelatal: no calf tenderness, normal capillary refill, non- tender Neurologic/Psych: alert, normal mood/affect, oriented x 3 Skin: normal color, warm/dry, no rash Lymphatic: no adenopathy Laboratory Results Date/Time Source Procedure Growth Status 03/25/18 23:04 Blood Blood Culture Pending Received 03/25/18 23:04 Blood Blood Culture Pending Received Last 24 Hours Test 03/25/18 11:39 03/25/18 12:26 03/25/18 12:27 03/25/18 15:24 Bedside Glucose 154 mg/dl 120 mg/dl Hemoglobin 9.1 g/dL Hematocrit 26.9 % Test 03/25/18 17:11 03/25/18 20:32 03/25/18 23:04 03/26/18 00:17 Lipase 802 U/L Bedside Glucose 175 mg/dl 137 mg/dl Hemoglobin 9.0 g/dL Hematocrit 26.8 % Test 03/26/18 05:27 03/26/18 05:56 White Blood Count 7.78 K/uL Red Blood Count 2.76 M/uL Hemoglobin 8.2 g/dL Hematocrit 23.9 % Mean Corpuscular Volume 86.6 fL Mean Corpuscular Hemoglobin 29.7 pg Mean Corpuscular Hemoglobin Concent 34.3 g/dl RDW Standard Deviation 47.6 fL RDW Coefficient of Variation 15.3 % Platelet Count 208 K/uL Mean Platelet Volume 10.4 fL Sodium Level 140 mmol/L Potassium Level 3.6 mmol/L Chloride Level 107 mmol/L Carbon Dioxide Level 25 mmol/L Anion Gap 9.0 mmol/L Blood Urea Nitrogen 10 mg/dl Creatinine 0.86 mg/dl Est Creatinine Clear Calc Drug Dose 48.8 ml/min Estimated GFR () 73.4 Estimated GFR (Non- 63.4 BUN/Creatinine Ratio 11.0 Random Glucose 128 mg/dl Calcium Level 8.3 mg/dl Total Bilirubin 1.8 mg/dl Direct Bilirubin 1.2 mg/dl Aspartate Amino Transf (AST/SGOT) 64 U/L Alanine Aminotransferase (ALT/SGPT) 144 U/L Alkaline Phosphatase 226 U/L Total Protein 5.9 gm/dl Albumin 2.6 gm/dl Globulin 3.3 gm/dl Albumin/Globulin Ratio 0.8 Lipase 676 U/L Bedside Glucose 140 mg/dl Patient Name: TAD BAEZ Unit Number: [id number] Dictated: 03/24/18656 Transcribed: 03/24/18656 NAZIA Printed Date/Time: [~ rep prt dt]/[~ rep prt tm] [~ rep ct labl] - [~ rep ct ivnm] [facility] [place] [address] Dictated: 03/24/18656 Transcribed: 03/24/18656 NAZIA Printed Date/Time: [~ rep prt dt]/[~ rep prt tm] [~ rep ct labl] - [~ rep ct ivnm] CT OF THE ABDOMEN AND PELVIS WITH CONTRAST CLINICAL HISTORY: Vomiting. Jaundice. Evaluate for hepatic mass or pancreatitis. COMPARISON STUDY: CT of the abdomen and pelvis February 27, 2015. TECHNIQUE: Following IV administration of 94 mL of [id number]-[id number], axial images of the abdomen and pelvis were obtained from the lung bases to the proximal femurs. Images were reviewed in the axial, sagittal, and coronal planes. IV contrast was administered without complication. A dose lowering technique was utilized adhering to the principles of ALARA. CT DOSE: 422.70 mGy.cm FINDINGS: The visualized portions of the ascending aorta are mildly dilated, measuring 4.2 cm. Heart is moderately enlarged. Extensive coronary artery calcification is noted. Interstitial thickening is noted within the lungs which may reflect a combination of interstitial lung disease and atelectasis. No hepatic lesions are present. There are calcified granulomas within the spleen. The adrenal glands and kidneys are unremarkable. There is no hydronephrosis. There is minimal dilatation of the main pancreatic duct which measures 4 mm in caliber. Moderate intra and extrahepatic biliary ductal dilatation is noted. The common bile duct measures 1.5 cm in caliber. There is abrupt narrowing of the distal common bile duct within the region of the pancreatic head. A well-defined mass is not identified however the findings are suspicious for an occult lesion. There is mild heterogeneity within the pancreatic head. There is no peripancreatic infiltration. The superior mesenteric vein and portal vein are patent. SMA is not involved. Gallbladder is mildly distended. There is no pericholecystic infiltration. No suspicious osseous lesions are present. There is no adenopathy. A splenule is noted. There is no ascites. IMPRESSION: 1. Moderate biliary ductal dilatation with abrupt cut off of the distal common bile duct. Minimal pancreatic ductal dilatation. Mild heterogeneity within the region of the pancreatic head without well-defined mass. The findings are suspicious for an occult neoplasm such as pancreatic adenocarcinoma or ampullary lesion. An occult common bile duct calculus could result in similar findings. GI consultation is recommended. 2. Moderate dilatation of the gallbladder. Trace pericholecystic fluid. 3. Interstitial thickening within the lower lungs which favors interstitial lung disease. Electronically signed by: Fernando Arboleda M.D. 03/24/2018 7:08 AM Dictated Date/Time: 03/24/2018 6:57 AM The status of this report is Signed. Draft = Not yet reviewed or approved by Radiologist. Signed = Reviewed and approved by Radiologist. <AttendingPhy></AttendingPhy> <FamilyPhy>Elizabeth Ma M.D.</FamilyPhy> < PrimaryPhy>Elizabeth Ma M.D.</PrimaryPhy> <UnitNumber>[id number]</ UnitNumber> <VisitNumber>[id number]</VisitNumber> <PatientName>TAD BAEZ</PatientName> <DateOfBirth>1935</DateOfBirth> <Location>[facility]</Location > <ServiceDate>03/24/18</ServiceDate> <MNE>ESINDI</MNE> <OrderingPhy>Bertha Toribio D.O.</OrderingPhy> <OrderingPhyMNE>f rep ord dr oliver</OrderingPhyMNE> < DictatingPhyMNE>f rep dict dr oliver</DictatingPhyMNE> <CCListMNE>f rep ct mne</ CCListMNE> <AdmittingPhyMNE>f pt admit dr oliver</AdmittingPhyMNE> <AttendingPhyMNE >f pt attend dr mne</AttendingPhyMNE> <ConsultingPhyMNE>f pt consult dr oliver</ConsultingPhyMNE> <FamilyPhyMNE>f pt fam dr oliver</FamilyPhyMNE> <OtherPhyMNE>f pt other dr oliver</OtherPhyMNE> < PrimaryPhyMNE>f pt prim care dr oliver</PrimaryPhyMNE> <ReferringPhyMNE>f pt referring dr oliver</ReferringPhyMNE> Assessment & Plan 82-year-old female admitted with biliary tract obstruction now status post stenting with possible neoplasm with blood cultures with gram-positive bacilli. Given normal white count and pro-calcitonin, and lack of fever, suspect that this is contaminant. Await further blood cultures to confirm. Would like to discontinue IV antibiotics in the next 24 hours if patient remains afebrile. Will follow.
--- NOTE | 2018-03-26 10:33 | Progress Note ---
Progress Note Date of Service Mar 26, 2018. Progress Note Pt is NPO for EUS procedure in OR today to r/o pancreas head mass vs biliary mass causing biliary stricture. She was febrile overnight, 1/2 blood cx growing gram positive bacilli, currently on Vancomycin and Zosyn. LFTs improving. She is otherwise doing well, denies any abd pain, n/v. Labs, VS reviewed Exam: - AAOx3, in NAD - HR regular, no murmur or gallops - Clear to auscultation bilateral lungs - Abd soft, non tender, BS present - No edema on extremities GI will give further recs after EUS is completed.
[2018-03-26 11:08] VITALS: Ht 160 cm; Wt 72.1 kg
[2018-03-26 11:40] VITALS: BP 155/73; PULSE 75; TEMP 36.9; O2SAT 92
--- NOTE | 2018-03-26 14:25 | Endo History and Physical ---
History & Physical Date of Service: Mar 26, 2018. Chief Complaint: Suspected pancreatic / bile duct mass Referring Physician: Dr. Larkin History of Present Illness Patient underwent ERCP over the weekend after she presented with new onset jaundice. She does have a suspicious stricture in the common bile duct thought to represent a pancreatic head mass. She presents this afternoon for endoscopic ultrasound for further evaluation. Past Medical History Diabetes, Anxiety, Hypertension, Thrombophlebitis Past Surgical History Hx Cardiac Surgery: No Hx Internal Defibrillator: No Hx Pacemaker: No Hx Abdominal Surgery: Yes (APPENDIX) Hx Post-Op Nausea and Vomiting: No Hx Cancer Surgery: No Hx Thoracic Surgery: No Hx Orthopedic: No Hx Urinary Tract Surgery: No Social History Smoking Status: Never Smoker Hx Substance Use: No Hx Alcohol Use: No Allergies Coded Allergies: Statins (Verified Allergy, Unknown, muscle pain,weakness, 03/24/18) Current Medications Reported Home Medications Medications Dose Route/Sig Max Daily Dose Days Date Category Dose Instructions Iron (Ferrous Sulfate) Unknown Strength Tab Unknown Dose PO BID 03/24/18 Reported Coumadin (Warfarin Sodium) 5 Mg Tab 5 Mg PO [id number] 03/24/18 Reported takes daily except sundays Coumadin (Warfarin Sodium) 1 Mg Tab 7 Mg PO WK 03/24/18 Reported takes on sunday Zantac (Ranitidine HCl) 150 Mg Tab 150 Mg PO BID 06/14/17 Reported Vitamin D (Cholecalciferol) 1,000 Unit Tab 1 Tab PO BID 06/04/17 Reported Prinivil (Lisinopril) 5 Mg Tab 5 Mg PO QPM 03/19/17 Reported Excedrin Tension Headache (Acetaminophen-Caffeine) 1 Tab Tab PO DAILY PRN 03/15/15 Reported Glucophage (Metformin Hcl) 850 Mg Tab 850 Mg PO TIDM 02/23/15 Reported Vital Signs Weight (Kilograms): 72.100 Height (Feet): 5 Height (Inches): 3.00 Date Time Temp Pulse Resp B/P (MAP) Pulse Ox O2 Delivery O2 Flow Rate FiO2 03/26/18 11:40 36.9 75 24 155/73 (100) 92 Room Air 03/26/18 07:35 36.9 73 24 136/64 (88) 96 Room Air 03/26/18 07:30 Room Air 03/26/18 04:00 36.9 66 18 121/60 (80) 95 Room Air 03/25/18 22:55 36.7 76 20 143/67 (92) 96 Room Air 03/25/18 20:03 95 Room Air 2.0 03/25/18 19:09 36.4 77 24 131/70 (90) 95 Room Air 03/25/18 17:00 Room Air 03/25/18 16:54 36.9 71 23 94 03/25/18 16:01 36.9 71 23 131/54 (79) 94 Room Air 03/25/18 15:20 76 21 140/68 (92) 95 Room Air Physical Exam General Appearance: no apparent distress Respiratory/Chest: Auscultation: breath sounds normal Cardiovascular: Heart Auscultation: II/ PHILIP Abdomen: Inspection & Palpation: soft Assessment and Plan Patient presenting for endoscopic ultrasound for evaluation of a suspicious biliary stricture seen on ERCP. We have discussed the risks of endoscopic ultrasound to include bleeding, perforation, pain and insufficient cellularity.
--- NOTE | 2018-03-26 14:56 | GI REPORT ---
Patient Name: Aylin Burgess Procedure Date: 03/26/2018 2:41 PM Date of : 1935 Admit Type: Inpatient Age: 82 Gender: Female Attending MD: Zachary Hart DO Procedure: Upper GI endoscopy Providers: Zachary Hart DO Referring MD: Gabrielle Herron Indications: Abnormal CT of the GI tract Medicines: Monitored Anesthesia Care Complications: No immediate complications. Estimated blood loss: Minimal. Estimated Blood Loss: Estimated blood loss was minimal. Procedure: Pre-Anesthesia Assessment: - Prior to the procedure, a History and Physical was performed, and patient medications, allergies and sensitivities were reviewed. The patient's tolerance of previous anesthesia was reviewed. - The risks and benefits of the procedure and the sedation options and risks were discussed with the patient. All questions were answered and informed consent was obtained. - Patient identification and proposed procedure were verified prior to the procedure by the physician, the nurse and the instructional support specialist. The procedure was verified in the pre-procedure area in the procedure room. - Pre-procedure physical examination revealed no contraindications to sedation. - ASA Grade Assessment: III - A patient with severe systemic disease. - After reviewing the risks and benefits, the patient was deemed in satisfactory condition to undergo the procedure. - The anesthesia plan was to use monitored anesthesia care (MAC). - The heart rate, respiratory rate, oxygen saturations, blood pressure, adequacy of pulmonary ventilation, and response to care were monitored throughout the procedure. - The physical status of the patient was re-assessed after the procedure. After obtaining informed consent, the endoscope was passed under direct vision. Throughout the procedure, the patient's blood pressure, pulse, and oxygen saturations were monitored continuously. The scope was introduced through the mouth, and advanced to the third part of duodenum. The upper GI endoscopy was accomplished without difficulty. The patient tolerated the procedure well. Findings: The examined esophagus was normal. The Z-line was regular and was found 37 cm from the incisors. The entire examined stomach was normal. The duodenal bulb and 3rd part of the duodenum were normal. Two previously placed biliary pancreatic stents were seen in the area of the papilla. Impression: - Normal esophagus. - Z-line regular, 37 cm from the incisors. - Normal stomach. - Normal duodenal bulb and 3rd part of the duodenum. - Biliary pancreatic stents in the duodenum. - No specimens collected. Recommendation: - Perform an upper endoscopic ultrasound (UEUS) today. Zachary Hart D.O. Zachary Hart, 03/26/2018 2:56:32 PM This report has been signed electronically. Note Initiated On: 03/26/2018 2:41 PM Number of Addenda: 0 I attest to the content of the Intraoperative Record and orders documented therein, exceptions below {[id number]}
[2018-03-26] MEDS ORDERED: PROPOFOL IV EMULSION 10 MG/ML 20 ML VIAL ONE (15:10)
[2018-03-26] MEDS ORDERED: LIDOCAINE HCL 2% 2 ML VIAL (20MG/ML) ONE (15:10)
--- NOTE | 2018-03-26 15:44 | [facility] Post Operative Brief Note ---
Immediate Operative Summary Operative Date Mar 26, 2018. 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
--- NOTE | 2018-03-26 16:09 | GI REPORT ---
Patient Name: Aylin Burgess Procedure Date: 03/26/2018 2:42 PM Date of : 1935 Admit Type: Inpatient Age: 82 Gender: Female Attending MD: Zachary Hart DO Procedure: Upper EUS Providers: Zachary Hart DO Referring MD: Abraham Mancuso Md Indications: Suspected mass in pancreas on CT scan Medicines: Monitored Anesthesia Care Complications: No immediate complications. Estimated blood loss: Minimal. Estimated Blood Loss: Estimated blood loss was minimal. Procedure: Pre-Anesthesia Assessment: - Prior to the procedure, a History and Physical was performed, and patient medications, allergies and sensitivities were reviewed. The patient's tolerance of previous anesthesia was reviewed. - The risks and benefits of the procedure and the sedation options and risks were discussed with the patient. All questions were answered and informed consent was obtained. - Patient identification and proposed procedure were verified prior to the procedure by the physician, the nurse and the record label intern. The procedure was verified in the procedure room. - Pre-procedure physical examination revealed no contraindications to sedation. - ASA Grade Assessment: III - A patient with severe systemic disease. - After reviewing the risks and benefits, the patient was deemed in satisfactory condition to undergo the procedure. - The anesthesia plan was to use monitored anesthesia care (MAC). - The heart rate, respiratory rate, oxygen saturations, blood pressure, adequacy of pulmonary ventilation, and response to care were monitored throughout the procedure. - The physical status of the patient was re-assessed after the procedure. After obtaining informed consent, the endoscope was passed under direct vision. Throughout the procedure, the patient's blood pressure, pulse, and oxygen saturations were monitored continuously. The Scope was introduced through the mouth, and advanced to the second part of duodenum. The upper EUS was accomplished without difficulty. The patient tolerated the procedure well. Findings: Endosonographic Finding : One stent was visualized endosonographically in the common bile duct. Extension of the stent was noted in the common bile duct. There was dilation in the common bile duct which measured up to 13 mm. A stent was seen in the main pancreatic duct. There was no sign of significant endosonographic abnormality in the left lobe of the liver. Homogeneous parenchyma and no masses were identified. No lymphadenopathy seen. There was no sign of significant endosonographic abnormality in the left adrenal gland. No adrenal gland enlargement was identified. An irregular mass was identified in the pancreatic head. The mass was hypoechoic. The mass measured 18 mm by 14 mm in maximal cross-sectional diameter. The endosonographic borders were well-defined. An intact interface was seen between the mass and the superior mesenteric artery, celiac trunk and portal vein suggesting a lack of invasion. The remainder of the pancreas was examined. The endosonographic appearance of parenchyma and the upstream pancreatic duct indicated parenchymal atrophy. Fine needle aspiration for cytology was performed. Color Doppler imaging was utilized prior to needle puncture to confirm a lack of significant vascular structures within the needle path. Five passes were made, 1 with the 22 gauge needle (Lightwave Logic Pro-core) and 4 with the 25 gauge needle (Lightwave Logic Pro-core) using a transduodenal approach. A stylet was used. A automotive service director was present and performed a preliminary cytologic examination. Final cytology results are pending. Estimated blood loss was minimal. Pancreatic parenchymal abnormalities were noted in the pancreatic body and pancreatic tail. These consisted of lobularity. Moderate hyperechoic material consistent with sludge was visualized endosonographically in the gallbladder. Impression: - One stent was visualized endosonographically in the common bile duct. - There was dilation in the common bile duct which measured up to 13 mm. - A stent was seen in the main pancreatic duct. - There was no evidence of significant pathology in the left lobe of the liver. - Endosonographic images of the left adrenal gland were unremarkable. - An 18 x 14 mm mass was identified in the pancreatic head. This was staged T1 N0 Mx by endosonographic criteria. The staging applies if malignancy is confirmed. Fine needle aspiration performed. - Pancreatic parenchymal abnormalities consisting of lobularity were noted in the pancreatic body and pancreatic tail. - Hyperechoic material consistent with sludge was visualized endosonographically in the gallbladder. Recommendation: - [facility]. - Full liquid diet today. - Await cytology results. - Referral to Surgical Oncology as an outpatient. - CT of chest to evaluate for evidence of metastatic disease. Zachary Hart D.O. Zachary Hart, 03/26/2018 4:09:23 PM This report has been signed electronically. Note Initiated On: 03/26/2018 2:42 PM Number of Addenda: 0 I attest to the content of the Intraoperative Record and orders documented therein, exceptions below {[id number]}
--- NOTE | 2018-03-26 16:11 | Anesthesiology Progress Note ---
Anesthesia Post Op Note Date & Time Mar 26, 2018 at 16:11 Vital Signs Pain Intensity: 0 Vital Signs Past 12 Hours Date Time Temp Pulse Resp B/P (MAP) Pulse Ox O2 Delivery O2 Flow Rate FiO2 03/26/18 16:00 70 19 151/73 100 Oxymask 10 03/26/18 15:51 36.5 70 24 149/67 100 Oxymask 10 03/26/18 11:40 36.9 75 24 155/73 (100) 92 Room Air 03/26/18 07:35 36.9 73 24 136/64 (88) 96 Room Air 03/26/18 07:30 Room Air Notes Mental Status: alert / awake / arousable, participated in evaluation Pt Amnestic to Procedure: Yes Nausea / Vomiting: adequately controlled Pain: adequately controlled Airway Patency, RR, SpO2: stable & adequate BP & HR: stable & adequate Hydration State: stable & adequate Anesthetic Complications: no major complications apparent
--- NOTE | 2018-03-26 16:26 | Progress Note ---
Progress Note Date of Service Mar 26, 2018. Progress Note The patient underwent endoscopic ultrasound this afternoon. She was found to have an 18 mm mass arising from either the pancreatic head or perhaps the distal common bile duct. Fine-needle aspiration was performed. This on the appearance the mass is likely resectable by a surgical oncologist. I did make an effort to find the patient's family however nobody was available this afternoon. Recommendations Full liquid diet tonight Advance diet as tolerated on Sunday if pain-free CT of chest to evaluate for metastatic disease Await cytology results Patient should have an outpatient referral to a surgical oncologist Please call with any questions or concerns
[2018-03-26 16:35] VITALS: BP 158/74; PULSE 68; TEMP 36.9; O2SAT 95
[2018-03-26] MEDS ORDERED: INSULIN ASPART 100 UNITS/ML 3 ML PEN SC STA (17:07)
[2018-03-26] MEDS ORDERED: NURSING VERBAL MED ORDER ONE (17:15)
[2018-03-26] MEDS: VANCOMYCIN IV 1,000 MG in SODIUM CHLORIDE 0.9% 250ML 250 ML IV SCH (17:28)
--- NOTE | 2018-03-26 17:57 | Progress Note ---
Internal Med Progress Note Date of Service: Mar 26, 2018. Provider Documentation: SUBJECTIVE: Denies of any abdominal pain, no nausea Diet advance, tolerating No melena or dark stool OBJECTIVE: Vital Signs-as noted below Exam: General-no apparent distress Eyes-sclera anicteric, improved from prior exam ENT-moist oral mucosa Neck-neck supple, no jugular venous distention, trachea midline, no thyromegaly Lungs-clear to auscultate, no wheeze or rales Heart-regular S1 and S2 Abdomen-soft, no tenderness, bowel sounds diminished Extremities-no extremity rash or deformity, no lower extremity edema Skin-positive for jaundice/however improved since yesterday Neuro-no focal neurological deficit, alert awake oriented Lab data as noted below. 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 : hx of weeks of weakness /fatigue /poor appetite presented with Jaundice /Hyperbilirubinemia T New 7 /D New 6 with elevated liver enzymes/coagulopathy INR > 10 CT abdomen /pelvis shows CBD ductal dilatation and obstruction possible due to mass at Head of pancreas GI consulted , appreciate input -scheduled for ERCP , coagulopathy reversed with IV 10 mg vitamin K and 2 units of FFP pre procedure INR was 1.2 ERCP 03/24/18 shows : distal common bile duct stricture, biliary ductal dilatation s/p placement of a common bile duct stent purulent biliary drainage noted during ERCP No evidence of Sepsis -normal white count, normal lactic , pro calcitonin level meets SIRS criteria in setting of obstructive cholangitis , pancreatitis / likely pancreatic mass /GI bleed ordered empiric Abx with IV Zosyn MRCP of abdomen shows : 1. Several equivocal intrahepatic biliary ductal strictures. No filling defect suspicious for calculi. 2. Common bile duct dilated measuring 9 mm 3. There is a distal common bile duct stricture measuring 2 cm in length. No evidence of pancreatic ductal dilatation 4. Biliary ductal stent present GI following Status post used with biopsy today Pathology sent/report pending Diet advanced Outpatient hematology oncology/surgical oncology evaluation-possible cholangiocarcinoma once pathology report is available GI BLEED WITH MELENA Resolved No further episode of dark stool or bright red blood per rectum Developed active GI bleed evening 03/24/18 Patient was transferred to ICU Bedside EGD and flexible sigmoidoscopy done by GI EGD 03/24/2018 showed:-Normal esophagus Nonbleeding erosive gastropathy Normal duodenal bulb, Flexible sigmoidoscopy: 03/24/2018 preparation of colon was poor Dark red blood in the rectum, and the sigmoid colon, and in the descending colon indicating a lower GI bleed source (likely diverticular) -Patient had bowel prep with GoLYTELY overnight Had repeat colonoscopy this Morning 03/25/[address] Hart Shows -Examined portion of the ileum was normal. -one 20 mm polyp in the cecum, resected -Internal hemorrhoids Pathology shows tubular adenoma Will need repeat colonoscopy in 6 months for surveillance ACUTE BLOOD LOSS ANEMIA due to above No further episode of GI bleed Hemoglobin dropped from 8.9-> 6.2 With active melena/hematochezia Status post 2 units of PRBC transfusion Posttransfusion hemoglobin remains fairly stable Monitor H&H ELEVATED LIVER ENZYMES/TRANSAMINITIS due to obstructive jaundice /possible cholangiocarcinoma presented with Direct Bilirubinemia/elevated AST/ALT Total bilirubin improved /transaminase level improved after biliary stent placement Lipase improved: 4260-> 802 Follow daily lab COAGULOPATHY Resolved Was on Chronic anticoagulation with Coumadin due to hx of lower ext recurrent DVT Presented with INR > 10 INR reverse with IV Vit K and FFP INR 1.1 HYPERTENSION Stable TYPE 2 DIABETES Last hemoglobin A1c on 01/29/2018 on 7.1-shows fairly well glycemic control Home medication : metformin 850 mg by mouth 3 times daily Metformin is kept on hold,-n.p.o. status/acute illness/status post contrast exposure for CT abdomen pelvis Insulin sliding scale Appreciate pharmacy consult for glycemic management PRIOR HISTORY OF RECURRENT LOWER EXTREMITY DVT Was on Coumadin INR was 3.1 on 02/26/2018 Follows with coagulation clinic at [facility] Presents with INR elevated more than 10 pt reports of taking Coumadin as directed by anticoagulation clinic Last dose of Coumadin was 5 mg on 03/23/18 evening Possible coagulopathy secondary to abnormal liver function caused by biliary obstruction Coumadin discontinued Given vitamin K/FFP to reverse INR Lower extremity Doppler shows no evidence of DVT Due to high risk of GI bleed, chronic anticoagulation with Coumadin discontinued Any future episode of lower extremity DVT, patient will need IVC filter placement GERD PPI DYSLIPIDEMIA Was on fenofibrate 160 mg p.o. daily CODE STATUS: DNR /DNI-discussed with patient DVT PROPHYLAXIS SCD and teds Anticoagulation avoided in the setting of active GI bleeding/acute blood loss anemia DISPOSITION Patient lives at home with her Was independent in her ADLs, PT OT evaluation requested Social service consulted for discharge planning Expected to be discharged home when medically stable Vital Signs: Date Time Temp Pulse Resp B/P (MAP) Pulse Ox O2 Delivery O2 Flow Rate FiO2 03/27/18 08:30 Room Air 03/27/18 07:13 36.9 75 18 152/78 (102) 94 Room Air 03/27/18 00:47 Room Air 03/26/18 23:35 36.7 69 18 139/68 (91) 95 Room Air 03/26/18 19:51 36.9 81 20 157/77 (103) 96 Room Air 03/26/18 17:30 Room Air 03/26/18 16:35 36.9 68 16 158/74 (102) 95 Room Air 03/26/18 16:20 71 19 168/75 100 Nasal Cannula 2 03/26/18 16:10 36 68 22 153/77 100 Nasal Cannula 2 03/26/18 16:00 70 19 151/73 100 Oxymask 10 03/26/18 15:51 36.5 70 24 149/67 100 Oxymask 10 Lab Results: Results Past 24 Hours Test 03/26/18 15:56 03/26/18 16:32 03/26/18 17:24 03/26/18 20:54 Range/Units Bedside Glucose 138 140 165 70-90 mg/dl Carcinoembryonic Antigen 2.5 0-2.5 ng/ml Test 03/27/18 06:34 03/27/18 07:24 03/27/18 11:31 Range/Units White Blood Count 8.42 4.8-10.8 K/uL Red Blood Count 2.88 4.2-5.4 M/uL Hemoglobin 8.3 12.0-16.0 g/dL Hematocrit 25.6 37-47 % Mean Corpuscular Volume 88.9 80-100 fL Mean Corpuscular Hemoglobin 28.8 25-34 pg Mean Corpuscular Hemoglobin Concent 32.4 32-36 g/dl RDW Standard Deviation 47.3 36.4-46.3 fL RDW Coefficient of Variation 14.9 11.5-14.5 % Platelet Count 242 130-400 K/uL Mean Platelet Volume 10.9 7.4-10.4 fL Sodium Level 140 136-145 mmol/L Potassium Level 3.7 3.5-5.1 mmol/L Chloride Level 107 98-107 mmol/L Carbon Dioxide Level 23 21-32 mmol/L Anion Gap 10.0 3-11 mmol/L Blood Urea Nitrogen 8 7-18 mg/dl Creatinine 0.81 0.60-1.20 mg/dl Est Creatinine Clear Calc Drug Dose 51.8 ml/min Estimated GFR () 78.9 Estimated GFR (Non- 68.1 BUN/Creatinine Ratio 9.8 10-20 Random Glucose 127 70-99 mg/dl Calcium Level 9.0 8.5-10.1 mg/dl Total Bilirubin 1.5 0.2-1 mg/dl Direct Bilirubin 1.1 0-0.2 mg/dl Aspartate Amino Transf (AST/SGOT) 46 15-37 U/L Alanine Aminotransferase (ALT/SGPT) 113 12-78 U/L Alkaline Phosphatase 200 45-117 U/L Total Protein 6.2 6.4-8.2 gm/dl Albumin 2.7 3.4-5.0 gm/dl Globulin 3.5 2.5-4.0 gm/dl Albumin/Globulin Ratio 0.8 0.9-2 Bedside Glucose 133 219 70-90 mg/dl
[2018-03-26 19:51] VITALS: BP 157/77; PULSE 81; TEMP 36.9; O2SAT 96
[2018-03-26 23:35] VITALS: BP 139/68; PULSE 69; TEMP 36.7; O2SAT 95
[2018-03-27] MEDS: PIPERACILL/TAZOBAC IV 3.375 GM in DEXTROSE 5% 100ML 100 ML IV SCH ×2 (06:13→14:10)
[2018-03-27 07:13] VITALS: BP 152/78; PULSE 75; TEMP 36.9; O2SAT 94
[2018-03-27 07:23] LABS: HEMATOCRIT 25.6 % (37-47); HEMOGLOBIN 8.3 g/dL (12.0-16.0); MEAN CELL VOLUME 88.9 fL (80-100); MEAN CORPUSCULAR HEMOGLOBIN 28.8 pg (25-34); MEAN CORPUSCULAR HGB CONC 32.4 g/dl (32-36); MEAN PLATELET VOLUME 10.9 fL (7.4-10.4); PLATELET COUNT 242 K/uL (130-400); RED CELL DISTRIBUTION WIDTH CV 14.9 % (11.5-14.5); RED CELL DISTRIBUTION WIDTH SD 47.3 fL (36.4-46.3); WHITE BLOOD COUNT 8.42 K/uL (4.8-10.8)
[2018-03-27 07:58] LABS: ALBUMIN 2.7 gm/dl (3.4-5.0); CREATININE 0.81 mg/dl (0.60-1.20); POTASSIUM 3.7 mmol/L (3.5-5.1); TOTAL PROTEIN 6.2 gm/dl (6.4-8.2)
[2018-03-27] MEDS: PANTOprazole INJ 40 MG in SYRINGE 0 ML IV SCH (09:03)
[2018-03-27] MEDS: INSULIN GLARGINE SOLOSTAR 100 UNITS/ML 3 ML PEN SC SCH (09:06)
[2018-03-27] MEDS: INSULIN ASPART 100 UNITS/ML 3 ML PEN SC SCH ×2 (09:06→12:50)
--- NOTE | 2018-03-27 10:56 | Gastroenterology Progress Note ---
Progress Note Date of Service: Mar 27, 2018 Subjective Pt evaluation today including: conversation w/ patient, physical exam, chart review, lab review, review of inpatient medication list Pt did well last night after EGD/EUS , denies any abd pain, n/v. Tolerated FL diet well. LFTs trending down still. Review of Systems Constitutional: No fever, No chills Respiratory: No cough, No shortness of breath Cardiac: No chest pain Abdomen: No pain, No nausea, No vomiting Skin: No rash, No itch, No jaundice Medications Current Inpatient Medications Medications (Trade) Dose Ordered Sig/Lucy Route Start Time Stop Time Status Last Admin Dose Admin Ioversol (Optiray 320) 125 ml UD PRN IV 03/24/18 06:30 03/28/18 06:29 Ondansetron HCl (Zofran Inj) 4 mg Q6H PRN IV 03/24/18 07:30 04/23/18 07:29 Glucose (Glucose 40% Gel) 15-30 GRAMS 15 GRAMS... UD PRN PO 03/24/18 07:45 04/23/18 07:44 Glucose (Glucose Chew Tab) 4-8 Tablets 4 Tabl... UD PRN PO 03/24/18 07:45 04/23/18 07:44 Dextrose (Dextrose 50% 50ML Syringe) 25-50ML 25ML FOR ... UD PRN IV 03/24/18 07:45 04/23/18 07:44 Glucagon (Glucagon Inj) 1 mg UD PRN SQ 03/24/18 07:45 04/23/18 07:44 Carbohydrates (Carbohydrates For Hypoglycemia) 15-30 GRAMS 15 grams if BSG 54-69... UD PRN PO 03/24/18 07:45 04/23/18 07:44 Miscellaneous Information (Consult Glycemic Management Pharmacy) 1 ea UD PRN N/A 03/24/18 08:20 04/23/18 08:19 Piperacillin Sod/ Tazobactam Sod 3.375 gm/Dextrose 115 ml @ 28.75 mls/ hr Q8H IV 03/24/18 14:00 04/03/18 13:59 03/27/18 06:13 28.75 MLS/HR Miscellaneous Information (Consult) 1 ea UD PRN N/A 03/24/18 08:00 04/23/18 07:59 Acetaminophen 650 mg/Empty Bag 65 ml @ 260 mls/hr Q6H PRN IV 03/24/18 17:45 04/23/18 17:44 Morphine Sulfate (MoRPHine SULFATE INJ) 1 mg Q4H PRN IV 03/24/18 17:45 04/07/18 17:44 Morphine Sulfate (MoRPHine SULFATE INJ) 2 mg Q4H PRN IV 03/24/18 17:45 04/07/18 17:44 Pantoprazole Sodium 40 mg/ Syringe 10 ml @ 5 mls/min BID@0900,2100 IV 03/25/18 10:30 04/24/18 10:29 03/27/18 09:03 5 MLS/MIN Vancomycin HCl 1000 mg/Sodium Chloride 270 ml @ 125 mls/hr Q18H IV 03/26/18 17:00 04/09/18 16:59 03/26/18 17:28 125 MLS/HR Vancomycin HCl (Consult) 1 ea UD PRN N/A 03/25/18 22:30 04/24/18 22:29 Insulin Glargine (Lantus Solostar Pen) 7 units QAM LA 03/26/18 09:00 04/25/18 08:59 03/27/18 09:06 7 UNITS Insulin Aspart (novoLOG ASPART) SLIDING SCALE ACHS SC 03/26/18 21:00 04/23/18 09:29 03/27/18 09:06 1 UNITS Objective Vital Signs Date Time Temp Pulse Resp B/P (MAP) Pulse Ox O2 Delivery O2 Flow Rate FiO2 03/27/18 07:13 36.9 75 18 152/78 (102) 94 Room Air 03/27/18 00:47 Room Air 03/26/18 23:35 36.7 69 18 139/68 (91) 95 Room Air 03/26/18 19:51 36.9 81 20 157/77 (103) 96 Room Air 03/26/18 17:30 Room Air 03/26/18 16:35 36.9 68 16 158/74 (102) 95 Room Air 03/26/18 16:20 71 19 168/75 100 Nasal Cannula 2 03/26/18 16:10 36 68 22 153/77 100 Nasal Cannula 2 03/26/18 16:00 70 19 151/73 100 Oxymask 10 03/26/18 15:51 36.5 70 24 149/67 100 Oxymask 10 03/26/18 11:40 36.9 75 24 155/73 (100) 92 Room Air Physical Exam General Appearance: WD/WN, no apparent distress Eyes: normal inspection, PERRL, EOMI Neck: supple, no JVD, trachea midline Respiratory/Chest: normal breath sounds, no respiratory distress, no accessory muscle use Cardiovascular: regular rate, rhythm, no gallop, no murmur Abdomen: normal bowel sounds, non tender, soft Extremities: normal inspection, no pedal edema, no calf tenderness Neurologic/Psych: alert, normal mood/affect, oriented x 3 Skin: normal color, no jaundice, no rash Laboratory Results Last 24 Hours Test 03/26/18 11:53 03/26/18 15:56 03/26/18 16:32 03/26/18 17:24 Bedside Glucose 145 mg/dl 138 mg/dl 140 mg/dl Carcinoembryonic Antigen 2.5 ng/ml Test 03/26/18 20:54 03/27/18 06:34 03/27/18 07:24 Bedside Glucose 165 mg/dl 133 mg/dl White Blood Count 8.42 K/uL Red Blood Count 2.88 M/uL Hemoglobin 8.3 g/dL Hematocrit 25.6 % Mean Corpuscular Volume 88.9 fL Mean Corpuscular Hemoglobin 28.8 pg Mean Corpuscular Hemoglobin Concent 32.4 g/dl RDW Standard Deviation 47.3 fL RDW Coefficient of Variation 14.9 % Platelet Count 242 K/uL Mean Platelet Volume 10.9 fL Sodium Level 140 mmol/L Potassium Level 3.7 mmol/L Chloride Level 107 mmol/L Carbon Dioxide Level 23 mmol/L Anion Gap 10.0 mmol/L Blood Urea Nitrogen 8 mg/dl Creatinine 0.81 mg/dl Est Creatinine Clear Calc Drug Dose 51.8 ml/min Estimated GFR () 78.9 Estimated GFR (Non- 68.1 BUN/Creatinine Ratio 9.8 Random Glucose 127 mg/dl Calcium Level 9.0 mg/dl Total Bilirubin 1.5 mg/dl Direct Bilirubin 1.1 mg/dl Aspartate Amino Transf (AST/SGOT) 46 U/L Alanine Aminotransferase (ALT/SGPT) 113 U/L Alkaline Phosphatase 200 U/L Total Protein 6.2 gm/dl Albumin 2.7 gm/dl Globulin 3.5 gm/dl Albumin/Globulin Ratio 0.8 Assessment and Plan Pt is a 82 y/o female admitted w elevated LFTs, jaundice, N/V, reported to have dark stools prior to admission and found to be anemic on presentation. Imaging studies w gallbladder u/s and CT abd/pelvis showed CBD and pancreatic duct dilations. ? obscure pancreas head mass. ERCP performed on 03/24/18 for suspected cholangitis, CBD stent and pancreatic stent placed. LFTs improving. Pt had melena in OR then EGD/Flex sig performed as well. No signs of UGI bleeding, + blood in colon suspected from diverticular bleed. Full colonoscopy done on 03/25/18 showed hemorrhoids, TA polyp w high grade dysplasia w/o carcinoma, prep was poor. She underwent EGD/EUS w FNA on 03/26/18 - found to have pancreas head mass 18 x 14mm, biliary dilation 13mm, biliary and pancreatic duct stents in place. - CT chest to be done to r/o mets - Monitor LFTs - F/U cytology from EUS - Surgical/Oncology referral placed, pt to be contacted for outpt appt. - Advanced to diabetic diet - No new GI plans; ok for DC from GI perspective to f/u w Surgical Oncology. I saw and evaluated the patient. She underwent endoscopic ultrasound yesterday without any complications. The procedure was notable for an 18 mm mass in the pancreatic head. Fine-needle aspiration results are pending today. I would like the patient to see surgical oncology as an outpatient, we have already placed a referral. The patient appears to be tolerating p.o. without any difficulty and she is free for discharge from our respective.
--- NOTE | 2018-03-27 11:20 | DIAGNOSTIC IMAGING REPORT ---
(CHEST) THORAX WITHOUT CT DOSE: 332.01 mGycm CLINICAL HISTORY: 82 years-old Female with evalatuion for mass (hx of a pancreatic mass). Patient recently diagnosed with a pancreatic mass. Surveillance study to assess for metastasis. Subsequent treatment strategy. TECHNIQUE: Multiaxial CT images of the chest were performed without contrast. A dose lowering technique was utilized adhering to the principles of ALARA. COMPARISON: CT abdomen and pelvis 03/24/2018, MRCP 03/25/2018, CTA of the chest 02/27/2015. FINDINGS: Homogeneous appearance of the thyroid. No pathologically enlarged lymph nodes are identified. There is moderate multichamber cardiac enlargement with coronary arterial calcifications noted. Fusiform dilation of the ascending thoracic aorta, 4.1 x 4.2 cm. Moderate calcification of the aorta. Mild biapical pleural-parenchymal scarring. There are progressively worsened bilateral reticular opacities with bilateral groundglass densities within a mid and lower lung zone predominant distribution. Calcifications of the tracheobronchial tree without significant traction bronchiectasis or honeycombing. Mild mosaic attenuation of the lung apices suggest air-trapping. 4 mm solid nodule of the right middle lobe lateral segment, image 153 series 4 is unchanged compatible with benign etiology. Stable 4 mm nodule with adjacent pleural parenchymal scarring of the right lung apex. Scattered calcified granulomata. Unchanged 6 mm solid nodule right lower lobe on image 125 series 4. No new or progressively enlarged nodules are identified. Central airways appear patent. Pneumobilia with mildly decreased biliary ductal dilation. Calcified granulomata about the spleen. Soft tissues are unremarkable. The bones appear intact. No suspicious lytic or blastic bone lesions. Multilevel spondylitic spurring with demineralized appearance of the bones. IMPRESSION: 1. Mild progression of interstitial lung disease, worsened from comparison study 02/27/2015. 2. Prior granulomatous disease with unchanged size and appearance of multiple solid bilateral pulmonary nodules measuring up to 6 mm within the right lower lobe. Demonstrating stability for over 3 years, these are compatible with benign etiology. No suspicious pulmonary nodules or masses to suggest metastasis. 3. Cardiomegaly. 4. Fusiform dilation of the ascending thoracic aorta. 5. Additional findings as above. Electronically signed by: Franklin Cummings M.D. 03/27/2018 11:19 AM Dictated Date/Time: 03/27/2018 11:09 AM
[2018-03-27] MEDS: VANCOMYCIN IV 1,000 MG in SODIUM CHLORIDE 0.9% 250ML 250 ML IV SCH (11:28)
--- NOTE | 2018-03-27 13:41 | Pharmacy Progress Note ---
Glycemic: Assessment & Plan Date of Service Mar 27, 2018. Assessment & Plan The patient is currently receiving an average of 10 units of insulin per day. BSGs ranging 133-219 mg/dl over the past 24hrs. * Basal insulin: Lantus 7 units qAM * Correctional Insulin: Novolog Correction per scale ACHS Goal Range: Low 120 mg/dL - High 150 mg/dL Correction Factor: 30 mg/dL/unit * Prandial insulin: Per carb ratio of 1 unit per 11 grams CHO consumed Patient has been well controlled over past 2 days but was NPO for surgery. Patient transitioned to T2DM meals, elevated post-prandial BSG at lunch today, consider decrease in carb ratio if they continue to be elevated. Pharmacy will continue to monitor patient daily and write orders per LT[facility], located within [facility] inpatient glycemic control protocol. Thanks. * Please note that the plan above was derived based on current level of insulin resistance and hospital stress. These recommendations are appropriate for inpatient admission only. Plan of care upon discharge will need to be reassessed to avoid potential outpatient hypo/hyperglycemia.
[2018-03-27] MEDS ORDERED: PANT40TA PO (14:28)
--- NOTE | 2018-03-27 14:32 | Discharge Instructions ---
Discharge Instructions Date of Service Mar 27, 2018. Admission Reason for Admission: Pancreatitis Due To Biliary Obstruction Discharge Discharge Diagnosis / Problem: BILLIARY OBSTRUCTION DUE TO DUCTAL MASS /GI BLEED /ANEMIA Discharge Goals Goal(s): Decrease discomfort, Improve function, Increase independence, Improve disease control, Diagnostic testing, Therapeutic intervention Activity Recommendations Activity Limitations: as noted below ( TOLERATED ) . Instructions / Follow-Up Instructions / Follow-Up HOSPITAL FOLLOW UP : 04/02/2018 @ 2:[address] Elizabeth Ma MD General Internal Medicine [facility] SURGICAL /ONCOLOGY FOLLOW UP FOR 18MM PANCREATIC MASS NOTED IN ENDOSCOPIC ULTRASOUND REFERRAL MADE ALREADY OFFICE WILL CALL YOU WITH THE SCHEDULE DO NOT TAKE EXEDRINE, ASPIRIN, MOTRIN , ALEVE , ADVIL , NAPROXEN -CAN CAUSE BLEEDING IN STOMACH DO NOT TAKE COUMADIN ANY MORE LAB WORK: COMPLETE BLOOD COUNT /CHEMISTRY /LIVER FUNCTION TEST WITH NEXT CLINIC VISIT FOR HOSPITAL FOLLOW UP COLONOSCOPY SHOWS ADENOMATOUS POLYP WILL NEED REPEAT COLONOSCOPY IN 6 MONTHS Current Hospital Diet Patient's current hospital diet: Regular Diet, Diabetes Type 2 Diet Discharge Diet Recommended Diet: Diabetes Type 2 Diet Procedures Procedures Performed: ERCP EGD EUS with FNA COLONOSCOPY x 2 SIGMOIDOSCOPY Pending Studies Studies pending at discharge: yes (PATHOLOGY REPORT FOR PANCREATIC MASS NOTED IN EUS ) List of pending studies: FNA PAHTOLOGY FOR 18 MM PANCREATIC HEAD MASS SPECIMENT OBTAINED ON 03/26/18 Laboratory Results Hemoglobin A1c Test 03/24/18 04:20 Range/Units Estimated Average Glucose 171 mg/dl Hemoglobin A1c 7.6 H 4.5-5.6 % Medical Emergencies . Who to Call and When: Medical Emergencies: If at any time you feel your situation is an emergency, please call 911 immediately. . Non-Emergent Contact Non-Emergency issues call your: Primary Care Provider . . "Provider Documentation" section prepared by Gabrielle Herron. .
--- NOTE | 2018-03-27 14:59 | Discharge Summary ---
Discharge Summary Date of Service Mar 27, 2018. Discharge Summary Admission Date: Mar 24, 2018 at 07:27 Discharge Date: Mar 27, 2018 Discharge Disposition: Home Principal Diagnosis: BILIARY OBSTRUCTION DUE TO DUCTAL MASS /GI BLEED /ANEMIA Procedures: Procedures Performed: ERCP EGD EUS with FNA COLONOSCOPY x 2 SIGMOIDOSCOPY Consultations: [facility] VAULT CLERK ID DR MILES Medication Reconciliation New Medications: Amoxicillin & Pot Clavulanate (Augmentin 500MG) 1 Tab Tab 500 MG PO Q8H for 7 Days, #21 TAB Pantoprazole Sodium (Protonix) 40 Mg Tab 1 TAB PO BID for 30 Days, #60 TAB 2 Refills Continued Medications: Cholecalciferol (Vitamin D) 1,000 Unit Tab 1 TAB PO BID Ferrous Sulfate (Iron) Unknown Strength Tab Unknown Dose PO BID Lisinopril (Prinivil) 5 Mg Tab 5 MG PO QPM, TAB Metformin Hcl (Glucophage) 850 Mg Tab 850 MG PO TIDM, TAB Ranitidine (Zantac) 150 Mg Tab 150 MG PO BID, TAB Discontinued Medications: Acetaminophen-Caffeine (Excedrin Tension Headache) 1 Tab Tab PO DAILY PRN for Headache Warfarin Sodium (Coumadin) 1 Mg Tab 7 MG PO WK, TAB takes on sunday Warfarin Sodium (Coumadin) 5 Mg Tab 5 MG PO 6XWK, TAB takes daily except sundays Referrals At Discharge Follow up Referrals: Physician Referral - 04/02/18 with Elizabeth Ma M.D. Admission Information HPI (per Admitting provider): This is a 82-year-old female with past medical history of lower extremity DVT, on chronic anticoagulation with Coumadin, history of GERD, chronic back pain, hyperlipidemia, type 2 diabetes Presented to ER with complaint of dizziness spell lightheadedness, feeling like passing out pt is a very poor historian Reports of increased fatigue/lack of energy/poor appetite for the past 2-3 months Denies of any weight loss Herself did not noticed having yellow color of skin and eye last Marvin her niece mentioned -she looks yellow could not confirm-how long patient been jaundiced Since yesterday patient was having nausea vomiting, Feeling poorly Head 2 episodes of dark tarry colored stool around 2-3 AM this morning In the ER: Lab work revealed hemoglobin 8.9/hematocrit 25.9 Normal MCV 80.4 Platelet count 284 INR more than 10 Chemistry: Sodium 132 BUN elevated 27/creatinine 1 Labs suggestive of obstructive jaundice, elevated direct bilirubin and transaminitis Total bilirubin 7.1 Direct bilirubin 6.0 AST 238 ALT [address] abdomen pelvis shows moderate biliary ductal dilatation with abrupt cutoff of the distal common bile duct. Minimal pancreatic ductal dilatation. Mild heterogenicity within the region of the pancreatic head without well- defined mass. These findings are suspicious for an occult neoplasm such as pancreatic adenocarcinoma or ampullary lesion Physical Exam (per Admitting): General Appearance: no apparent distress Head: normocephalic, atraumatic Eyes: + abnormal sclerae exam (Deeply icteric sclera) ENT: normal ENT inspection Neck: supple, thyroid normal, trachea midline Respiratory/Chest: chest non-tender, lungs clear, normal breath sounds, no respiratory distress Cardiovascular: regular rate, rhythm, no edema Abdomen/GI: normal bowel sounds, non tender, soft Extremities/Musculoskelatal: no calf tenderness, no pedal edema, + pertinent finding (Skin icteric ) Neurologic/Psych: no motor/sensory deficits, alert Skin: + jaundice, + pertinent finding (deeply jaundiced ) Hospital Course Sitting up on chair, no further episode of dark stool or melena Tolerating diet well No fever or chills, no nausea, no abdominal pain or discomfort Improvement of appetite and energy Jaundice has improved markedly Evaluated by GI team, stable to be discharged home today PHYSICAL EXAM : General-no apparent distress Eyes-minimally icteric sclera ENT-moist oral mucosa Neck-neck supple, no jugular venous distention, trachea midline, no thyromegaly Lungs-clear to auscultate, no wheeze or rales Heart-regular S1 and S2 Abdomen-soft, no tenderness, bowel sounds diminished Extremities-no extremity rash or deformity, no lower extremity edema Skin-improvement of jaundice Neuro-no focal neurological deficit, alert awake oriented Last 8 Hrs Date Time Temp Pulse Resp B/P (MAP) Pulse Ox O2 Delivery O2 Flow Rate FiO2 03/27/18 08:30 Room Air 03/27/18 07:13 36.9 75 18 152/78 (102) 94 Room Air OBSTRUCTIVE JAUNDICE/POSSIBLE CHOLANGIOCARCINOMA : hx of weeks of weakness /fatigue /poor appetite presented with Jaundice /Hyperbilirubinemia T New 7 /D New 6 with elevated liver enzymes/coagulopathy INR > 10 CT abdomen /pelvis shows CBD ductal dilatation and obstruction possible due to mass at Head of pancreas GI consulted , appreciate input -scheduled for ERCP , coagulopathy reversed with IV 10 mg vitamin K and 2 units of FFP pre procedure INR was 1.2 ERCP 03/24/18 shows : distal common bile duct stricture, biliary ductal dilatation s/p placement of a common bile duct stent purulent biliary drainage noted during ERCP No evidence of Sepsis -normal white count, normal lactic , pro calcitonin level meets SIRS criteria in setting of obstructive cholangitis , pancreatitis / likely pancreatic mass /GI bleed ordered empiric Abx with IV Zosyn MRCP of abdomen shows : 1. Several equivocal intrahepatic biliary ductal strictures. No filling defect suspicious for calculi. 2. Common bile duct dilated measuring 9 mm 3. There is a distal common bile duct stricture measuring 2 cm in length. No evidence of pancreatic ductal dilatation 4. Biliary ductal stent present GI following EUS biopsy on 03/26/2018 Pathology sent/report pending Diet advanced Outpatient hematology oncology/surgical oncology evaluation-possible cholangiocarcinoma once pathology report is available Antibiotic changed to p.o. Augmentin for total 7 days GI BLEED WITH MELENA Resolved No further episode of dark stool or bright red blood per rectum Developed active GI bleed evening 03/24/18 Patient was transferred to ICU Bedside EGD and flexible sigmoidoscopy done by GI EGD 03/24/2018 showed:-Normal esophagus Nonbleeding erosive gastropathy Normal duodenal bulb, Flexible sigmoidoscopy: 03/24/2018 preparation of colon was poor Dark red blood in the rectum, and the sigmoid colon, and in the descending colon indicating a lower GI bleed source (likely diverticular) -Patient had bowel prep with GoLYTELY overnight Had repeat colonoscopy 03/25/[address] Hart Shows -Examined portion of the ileum was normal. -one 20 mm polyp in the cecum, resected -Internal hemorrhoids Pathology shows tubular adenoma Patient was hemodynamically stable to be transferred to medical floor No further episode of GI bleed, no melena H&H remained stable Be discharged home today Will need repeat colonoscopy in 6 months for surveillance GI will schedule outpatient patient follow-up and colonoscopy ACUTE BLOOD LOSS ANEMIA due to above No further episode of GI bleed Hemoglobin dropped from 8.9-> 6.2 With active melena/hematochezia Status post 2 units of PRBC transfusion Posttransfusion hemoglobin remains fairly stable Did not had any further episode of melena or GI bleed ELEVATED LIVER ENZYMES/TRANSAMINITIS due to obstructive jaundice /possible cholangiocarcinoma presented with Direct Bilirubinemia/elevated AST/ALT Total bilirubin improved /transaminase level improved after biliary stent placement COAGULOPATHY Resolved Was on Chronic anticoagulation with Coumadin due to hx of lower ext recurrent DVT Presented with INR > 10 INR reverse with IV Vit K and FFP INR 1.1 Given GI bleed, possible biliary versus pancreatic malignancy, absence of lower extremity DVT, patient will not be a candidate for future anticoagulation with Coumadin HYPERTENSION Stable TYPE 2 DIABETES Last hemoglobin A1c on 01/29/2018 on 7.1-shows fairly well glycemic control Home medication : metformin 850 mg by mouth 3 times daily Metformin is kept on hold,-n.p.o. status/acute illness/status post contrast exposure for CT abdomen pelvis Insulin sliding scale Appreciate pharmacy consult for glycemic management PRIOR HISTORY OF RECURRENT LOWER EXTREMITY DVT Was on Coumadin INR was 3.1 on 02/26/2018 Follows with coagulation clinic at [facility] Tsering Presents with INR elevated more than 10 pt reports of taking Coumadin as directed by anticoagulation clinic Last dose of Coumadin was 5 mg on 03/23/18 evening Possible coagulopathy secondary to abnormal liver function caused by biliary obstruction Coumadin discontinued Given vitamin K/FFP to reverse INR Lower extremity Doppler shows no evidence of DVT Due to high risk of GI bleed, chronic anticoagulation with Coumadin discontinued Any future episode of lower extremity DVT, patient will need IVC filter placement GERD PPI DYSLIPIDEMIA on fenofibrate 160 mg p.o. daily CODE STATUS: DNR /DNI-discussed with patient DVT PROPHYLAXIS SCD and teds Anticoagulation avoided in the setting of active GI bleeding/acute blood loss anemia DISPOSITION stable to be discharged home today Total time spent on discharge = 40 MINS This includes examination of the patient, discharge planning, medication reconciliation, and communication with other providers. Discharge Instructions Discharge Instructions Date of Service Mar 27, 2018. Admission Reason for Admission: Pancreatitis Due To Biliary Obstruction Discharge Discharge Diagnosis / Problem: BILIARY OBSTRUCTION DUE TO DUCTAL MASS /GI BLEED /ANEMIA Discharge Goals Goal(s): Decrease discomfort, Improve function, Increase independence, Improve disease control, Diagnostic testing, Therapeutic intervention Activity Recommendations Activity Limitations: as noted below ( TOLERATED ) . Instructions / Follow-Up Instructions / Follow-Up HOSPITAL FOLLOW UP : 04/02/2018 @ 2:[address] Elizabeth Ma MD General Internal Medicine [facility] SURGICAL /ONCOLOGY FOLLOW UP FOR 18MM PANCREATIC MASS NOTED IN ENDOSCOPIC ULTRASOUND REFERRAL MADE ALREADY OFFICE WILL CALL YOU WITH THE SCHEDULE DO NOT TAKE EXEDRINE, ASPIRIN, MOTRIN , ALEVE , ADVIL , NAPROXEN -CAN CAUSE BLEEDING IN STOMACH DO NOT TAKE COUMADIN ANY MORE LAB WORK: COMPLETE BLOOD COUNT /CHEMISTRY /LIVER FUNCTION TEST WITH NEXT CLINIC VISIT FOR HOSPITAL FOLLOW UP COLONOSCOPY SHOWS ADENOMATOUS POLYP WILL NEED REPEAT COLONOSCOPY IN 6 MONTHS Current Hospital Diet Patient's current hospital diet: Regular Diet, Diabetes Type 2 Diet Discharge Diet Recommended Diet: Diabetes Type 2 Diet Procedures Procedures Performed: ERCP EGD EUS with FNA COLONOSCOPY x 2 SIGMOIDOSCOPY Pending Studies Studies pending at discharge: yes (PATHOLOGY REPORT FOR PANCREATIC MASS NOTED IN EUS ) List of pending studies: FNA PAHTOLOGY FOR 18 MM PANCREATIC HEAD MASS SPECIMENT OBTAINED ON 03/26/18 Laboratory Results Hemoglobin A1c Test 03/24/18 04:20 Range/Units Estimated Average Glucose 171 mg/dl Hemoglobin A1c 7.6 H 4.5-5.6 % Medical Emergencies . Who to Call and When: Medical Emergencies: If at any time you feel your situation is an emergency, please call 911 immediately. . Non-Emergent Contact Non-Emergency issues call your: Primary Care Provider . . "Provider Documentation" section prepared by Gabrielle Herron. . Additional Copies To Elizabeth Ma M.D. Duncan, Marten B.,
--- NOTE | 2018-03-27 15:02 | Infectious Disease Progress Nt ---
Progress Note Date of Service Mar 27, 2018. Subjective Pt evaluation today including: conversation w/ patient, conversation w/ family , physical exam, chart review, lab review, review of studies, conversation w/ job service consultant, review of inpatient medication list Patient offers no new complaints today. Remains afebrile. Follow-up blood cultures no growth to date. Still no identification of gram-positive bacilli and previous blood culture. All Other Systems: Reviewed and Negative Medications Reported Home Medications Medications Dose Route/Sig Max Daily Dose Days Date Category Dose Instructions Protonix (Pantoprazole Sodium) 40 Mg Tab 1 Tab PO BID 30 03/27/18 Rx Iron (Ferrous Sulfate) Unknown Strength Tab Unknown Dose PO BID 03/24/18 Reported Coumadin (Warfarin Sodium) 5 Mg Tab 5 Mg PO 6XWK 03/24/18 Reported takes daily except sundays Coumadin (Warfarin Sodium) 1 Mg Tab 7 Mg PO WK 03/24/18 Reported takes on sunday Zantac (Ranitidine HCl) 150 Mg Tab 150 Mg PO BID 06/14/17 Reported Vitamin D (Cholecalciferol) 1,000 Unit Tab 1 Tab PO BID 06/04/17 Reported Prinivil (Lisinopril) 5 Mg Tab 5 Mg PO QPM 03/19/17 Reported Excedrin Tension Headache (Acetaminophen-Caffeine) 1 Tab Tab PO DAILY PRN 03/15/15 Reported Glucophage (Metformin Hcl) 850 Mg Tab 850 Mg PO TIDM 02/23/15 Reported Objective Vital Signs Date Time Temp Pulse Resp B/P (MAP) Pulse Ox O2 Delivery O2 Flow Rate FiO2 03/27/18 08:30 Room Air 03/27/18 07:13 36.9 75 18 152/78 (102) 94 Room Air 03/27/18 00:47 Room Air 03/26/18 23:35 36.7 69 18 139/68 (91) 95 Room Air 03/26/18 19:51 36.9 81 20 157/77 (103) 96 Room Air 03/26/18 17:30 Room Air 03/26/18 16:35 36.9 68 16 158/74 (102) 95 Room Air 03/26/18 16:20 71 19 168/75 100 Nasal Cannula 2 03/26/18 16:10 36 68 22 153/77 100 Nasal Cannula 2 03/26/18 16:00 70 19 151/73 100 Oxymask 10 03/26/18 15:51 36.5 70 24 149/67 100 Oxymask 10 Physical Exam General Appearance: WD/WN, no apparent distress Eyes: normal inspection, PERRL, sclerae normal ENT: normal ENT inspection, pharynx normal Neck: supple, no adenopathy, thyroid normal, trachea midline Respiratory/Chest: chest non-tender, lungs clear, normal breath sounds, no respiratory distress Cardiovascular: regular rate, rhythm, no gallop, no murmur Abdomen: normal bowel sounds, non tender, soft, no organomegaly Extremities: non-tender, no pedal edema, no calf tenderness Neurologic/Psychiatric: alert, normal mood/affect, oriented x 3 Skin: normal color, warm/dry, no rash Lymphatic: no adenopathy Laboratory Results RUN DATE: 03/27/18 [facility] LAB PAGE 1 RUN TIME: 651 Specimen Inquiry PATIENT: TAD BAEZ LOC: Cathleen U # : [id number] AGE/SX: 82/F ROOM: E420 REG : 03/24/[address]: Gabrielle Herron M.D. : 1935 BED: 1 DIS : STATUS: ADM IN TLOC: SPEC #: [id number] ADDISON: 03/25/18 STATUS: RES REQ #: [id number] RECD: 03/25/[address] [facility] [address]: Gabrielle Herron M.D. SOURCE: BLOOD ENTR: 03/25/[address] [facility] [address]: Abraham Larkin M.D. SPDESC: Deni Le MD, Joseph N., M.D. Patel, Manisha N., M.D. Shippert, Brian W. , D.OZheng ORDERED: BLOOD CULTURE Procedure Result Verified Site BLD CULT Preliminary 03/27/18-651 NO GROWTH TO DATE. Last 24 Hours Test 03/26/18 15:56 03/26/18 16:32 03/26/18 17:24 03/26/18 20:54 Bedside Glucose 138 mg/dl 140 mg/dl 165 mg/dl Carcinoembryonic Antigen 2.5 ng/ml Test 03/27/18 06:34 03/27/18 07:24 03/27/18 11:31 White Blood Count 8.42 K/uL Red Blood Count 2.88 M/uL Hemoglobin 8.3 g/dL Hematocrit 25.6 % Mean Corpuscular Volume 88.9 fL Mean Corpuscular Hemoglobin 28.8 pg Mean Corpuscular Hemoglobin Concent 32.4 g/dl RDW Standard Deviation 47.3 fL RDW Coefficient of Variation 14.9 % Platelet Count 242 K/uL Mean Platelet Volume 10.9 fL Sodium Level 140 mmol/L Potassium Level 3.7 mmol/L Chloride Level 107 mmol/L Carbon Dioxide Level 23 mmol/L Anion Gap 10.0 mmol/L Blood Urea Nitrogen 8 mg/dl Creatinine 0.81 mg/dl Est Creatinine Clear Calc Drug Dose 51.8 ml/min Estimated GFR () 78.9 Estimated GFR (Non- 68.1 BUN/Creatinine Ratio 9.8 Random Glucose 127 mg/dl Calcium Level 9.0 mg/dl Total Bilirubin 1.5 mg/dl Direct Bilirubin 1.1 mg/dl Aspartate Amino Transf (AST/SGOT) 46 U/L Alanine Aminotransferase (ALT/SGPT) 113 U/L Alkaline Phosphatase 200 U/L Total Protein 6.2 gm/dl Albumin 2.7 gm/dl Globulin 3.5 gm/dl Albumin/Globulin Ratio 0.8 Bedside Glucose 133 mg/dl 219 mg/dl Assessment and Plan 82-year-old female admitted with biliary tract obstruction now status post stenting with possible neoplasm with blood cultures with gram-positive bacilli. Likely contaminant given negative follow-up blood cultures, normal white count and procalcitonin. Patient to be transitioned to oral Augmentin for another 7 days. For discharge later today.
[2018-03-27] MEDS ORDERED: AMOX500T PO (15:03)
[2018-03-27 15:10] VITALS: BP 152/78; PULSE 75; TEMP 36.9; O2SAT 94
[2018-03-27 15:31] VITALS: BP 124/75; PULSE 74; TEMP 36.7; O2SAT 97
[2018-03-28] MEDS ORDERED: VANCOMYCIN TROUGH ONE (04:30)
== END 2018-03-27 15:54 | disposition home or self-care (01) | DRG 435 ==
LOC: C.EDB 04:06 → C.MED 07:27 → ENRESERV 07:42 → C.MSICU 19:13 → ENRESERV 03-25 16:40 → C.2E 03-25 16:58 → ENRESERV 03-26 18:45 → C.4E 03-26 19:38
PROVIDERS: ADMIT Hospitalist; ATTEND Hospitalist
PROC: 0F798DZ Dilation of Common Bile Duct with Intraluminal Device, Via Natural or Artificial Opening Endoscopic (ICD-10-PCS; principal; 2018-03-24 13:05)
PROC: 0F7D8DZ Dilation of Pancreatic Duct with Intraluminal Device, Via Natural or Artificial Opening Endoscopic (ICD-10-PCS; principal; 2018-03-24 13:05)
PROC: 0DJ08ZZ Inspection of Upper Intestinal Tract, Via Natural or Artificial Opening Endoscopic (ICD-10-PCS; principal; 2018-03-24 13:05)
PROC: 0DJD8ZZ Inspection of Lower Intestinal Tract, Via Natural or Artificial Opening Endoscopic (ICD-10-PCS; principal; 2018-03-24 13:05)
PROC: 0DBH8ZZ Excision of Cecum, Via Natural or Artificial Opening Endoscopic (ICD-10-PCS; 2018-03-25 09:40)
PROC: 0F9G3ZX Drainage of Pancreas, Percutaneous Approach, Diagnostic (ICD-10-PCS; 2018-03-26)
PROC: 0DJ08ZZ Inspection of Upper Intestinal Tract, Via Natural or Artificial Opening Endoscopic (ICD-10-PCS; 2018-03-26)
DX: C25.0 Malignant neoplasm of head of pancreas (principal); K83.1 Obstruction of bile duct; K85.90 Acute pancreatitis without necrosis or infection, unspecified; K57.31 Diverticulosis of large intestine without perforation or abscess with bleeding; D68.32 Hemorrhagic disorder due to extrinsic circulating anticoagulants; D62 Acute posthemorrhagic anemia; T45.515A Adverse effect of anticoagulants, initial encounter; R74.0 Nonspecific elevation of levels of transaminase and lactic acid dehydrogenase [LDH]; D12.0 Benign neoplasm of cecum; R42 Dizziness and giddiness; D50.9 Iron deficiency anemia, unspecified; E11.65 Type 2 diabetes mellitus with hyperglycemia; I10 Essential (primary) hypertension; K21.9 Gastro-esophageal reflux disease without esophagitis; E78.5 Hyperlipidemia, unspecified; Z66 Do not resuscitate; Z86.718 Personal history of other venous thrombosis and embolism; Z85.72 Personal history of non-Hodgkin lymphomas; Z79.01 Long term (current) use of anticoagulants; Z79.84 Long term (current) use of oral hypoglycemic drugs; Z79.899 Other long term (current) drug therapy; Z88.8 Allergy status to other drugs, medicaments and biological substances

== ENCOUNTER 2018-10-20 15:13 | Inpatient (IN) ==
[2018-10-20] MEDS ORDERED: PHYTONADIONE 10 MG in SODIUM CHLORIDE 0.9% 50 ML IV ONE (15:33)
[2018-10-20] MEDS ORDERED: ONDANSETRON INJ 2 MG/ML 2 ML VIAL IV STA (15:33)
[2018-10-20] MEDS ORDERED: PANTOprazole 80 MG in DEXTROSE 5% 100 ML IV ONE (15:38)
[2018-10-20] MEDS ORDERED: PANTOPRAZOLE BOLUS/DRIP 1 EA IV STA (15:38)
[2018-10-20] MEDS ORDERED: ONDANSETRON INJ 2 MG/ML 2 ML VIAL ONE (15:39)
[2018-10-20] MEDS ORDERED: SODIUM CHLORIDE 0.9% 1000ML 1,000 ML IV SCH (15:45)
[2018-10-20 16:01] LABS: iSTAT Creatinine 1.1 mg/dl (0.6-1.3); iSTAT Hemoglobin 6.5 g/dl (12.0-16.0); iSTAT Ionized Calcium 1.14 mmol/l (1.12-1.32); iSTAT Potassium 5.3 mEq/L (3.3-5.0)
[2018-10-20 16:04] LABS: Alanine Aminotransferase 55 U/L (12-78); Albumin Level 2.1 gm/dl (3.4-5.0); Aspartate Aminotransferase 142 U/L (15-37); BUN Creatinine Ratio 23.9 (10-20); Blood Urea Nitrogen 34 mg/dl (7-18); Calcium 8.5 mg/dl (8.5-10.1); Carbon Dioxide 17 mmol/L (21-32); Chloride 106 mmol/L (98-107); Est GFR (African American) 39.1; Est GFR (Non-African American) 33.7; Glucose 286 mg/dl (70-99); Potassium 5.4 mmol/L (3.5-5.1); Sodium 140 mmol/L (136-145)
[2018-10-20 16:07] LABS: Hematocrit (blood only) 19.2 % (37-47); Hemoglobin 6.4 g/dL (12.0-16.0); Mean Corpuscular Hgb Conc 33.3 g/dL (32-36); Mean Corpuscular Volume 89.3 fL (80-100); Mean Platelet Volume 9.9 fL (7.4-10.4); Platelet Count 419 K/uL (130-400); RDW Coefficient of Variation 15.3 % (11.5-14.5); RDW Standard Deviation 48.4 fL (36.4-46.3); Red Blood Count 2.15 M/uL (4.2-5.4); White Blood Count 10.44 K/uL (4.8-10.8)
[2018-10-20 16:09] LABS: Albumin Globulin Ratio 0.5 (0.9-2); Alkaline Phosphatase 778 U/L (45-117); Bilirubin,Total 0.6 mg/dl (0.2-1); Globulin 4.4 gm/dl (2.5-4.0); Total Protein 6.5 gm/dl (6.4-8.2); Troponin I 0.018 ng/ml (0-0.045)
[2018-10-20 16:15] LABS: Partial Thromboplastin Ratio 2.1; Prothrombin Time > 90.0 Seconds (9.0-12.0)
[2018-10-20] MEDS ORDERED: PROTHROMBIN COMP CONC- KCENTRA 2,500 UNITS in SYRINGE 0 ML IV ONE (16:15)
[2018-10-20 16:16] LABS: Immature Granulocytes # (auto) 0.05 K/uL (0.00-0.02); Immature Granulocytes % (auto) 0.5 %; Lymphocytes # (auto) 1.41 K/uL (1.2-3.4); Lymphocytes % (auto) 13.5 %; Monocytes # (auto) 0.46 K/uL (0.11-0.59); Monocytes % (auto) 4.4 %; Neutrophils # (auto) 8.52 K/uL (1.4-6.5); Neutrophils % (auto) 81.6 %; RBC Morphology Unremarkable
--- NOTE | 2018-10-20 16:18 | XRay Report ---
XR chest 1V portable CLINICAL HISTORY: weakness COMPARISON STUDY: 07/04/2017 FINDINGS: The cardiac and mediastinal contours remain stable. There is persistent interstitial thicke ramona. There is no lobar consolidation. There are no pleural effusions. There is no overt failure.[ IMPRESSION: Asymmetric left greater than right chronic interstitial thickening, similar to the preced ing study. Electronically signed by: Wai Fuller M.D. 10/20/2018 4:17 PM
[2018-10-20 16:43] LABS: INR > 10.4 (0.9-1.1)
[2018-10-20 16:44] LABS: Partial Thromboplastin Time 55.8 Seconds (21.0-31.0)
[2018-10-20] MEDS: PANTOprazole 40 MG in DEXTROSE 5% 100 ML IV SCH ×2 (16:49→20:34)
--- NOTE | 2018-10-20 17:08 | History & Physical Report ---
Date of Service October 20, 2018 Assessment & Plan (1) Acute GI bleeding: * Supratherapeutic INR secondary to Coumadin for DVT * Patient given K Centra as well as vitamin K in the emergency department * Hemoglobin 6.4 -patient refusing transfusion * GI consulted for possible EGD/colonoscopy tomorrow * At this point patient most likely will not pursue any further intervention * Will await gastroenterology comment (2) Pancreatic cancer: * Palliative care consult placed * Case management consult placed * Anticipated discharge home on hospice (3) Blood loss anemia: * Secondary to supratherapeutic INR secondary to Coumadin * Patient refusing blood transfusion * Continue ferrous sulfate * Focus of care is palliative (4) Hyperkalemia: * Potassium level 5.4 * Do not treat at this time * Patient focuses palliative care (5) DVT prophylaxis: * INR supratherapeutic at 8 * Chemical prophylaxis contraindicated * Patient refusing mechanical prophylaxis * Palliative care focus Please refer to Dr. Duarte's addendum for further recommendations History of Present Illness Primary Care Provider: Elizabeth Ma MD Attending: Dr. 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 She has previously been admitted for obstructive jaundice as well as GI bleed. The patient was at home today and began to have bleeding and was instructed to come to the emergency department. She was found to have an elevated INR of 8 as well as a low hemoglobin of 6.4 and appeared to be pale. She was treated with K Centra and vitamin K. When given the option of transfusion the patient refused and requested palliative care. I did speak with the patient, the patient's , 2 brothers, and the patient's niece who is very active in her care and all are in agreement that palliative care is a direction that should be pursued. The patient currently has no abdominal pain. She has no rectal pain. She denies back pain or flank pain. She does feel weak but has no shortness of breath, chest pain, chest tightness. She is hemodynamically stable at this time and is on 2 L of supplemental oxygen via nasal cannula for comfort. At this point patient will be admitted for palliative care and for arrangements for hospice. 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 Allergies Allergy/AdvReac Type Severity Reaction Status Date / Time [place]-Hhh-Yis Reductase Allergy Unknown muscle Verified 03/24/18 04:58 Inhibitor pain,weakness gemfibrozil Allergy Unknown Verified 10/20/18 16:39 tramadol AdvReac Severe Gastrointestinal Verified 10/20/18 16:39 Upset ezetimibe [From Zetia] AdvReac Fatigued Verified 10/20/18 16:39 ibuprofen AdvReac CAN NOT Verified 10/20/18 16:39 TAKE BECAUSE IS ON COUMADIN Home Medications Home Medications Medication Instructions Recorded Confirmed Type Ferrous Sulfate Tab 162.5 mg PO BID 10/20/18 10/20/18 History Tylenol-Caffeine 500-65mg 1 tab PO DAILY PRN 10/20/18 10/20/18 History cholecalciferol (vitamin D3) 2,000 unit PO DAILY 10/20/18 10/20/18 History [Vitamin D3] docusate sodium 100 mg PO BID 10/20/18 10/20/18 History fenofibrate 160 mg PO DAILY 10/20/18 10/20/18 History [id number] [Creon] 1 cap PO QID 10/20/18 10/20/18 History mirtazapine [Remeron] 15 mg PO HS 10/20/18 10/20/18 History sennosides [Senokot] 8.6 mg PO DAILY 10/20/18 10/20/18 History warfarin 3 mg PO 5XWK 10/20/18 10/20/18 History warfarin [Coumadin] 4.5 mg PO 2XWK 10/20/18 10/20/18 History Past Med/Surg History Medical History Diabetes (Chronic) HTN (hypertension) (Chronic) Hypercholesteremia (Chronic) Shortness of breath (Acute) Back pain (Acute) Diabetes (Chronic) Hypertension (Chronic) Anxiety (Acute) Back pain (Acute) Carotid artery narrowing Chest pain Dyspnea (Acute) Obstructive jaundice due to malignant neoplasm Pancreatitis due to biliary obstruction Pancreatitis due to obstruction of pancreatic duct Shortness of breath (Acute) Family history non-contributory History of biliary stent insertion Family History Other Family history non-contributory Social History Communication Ability: Unable Beliefs That Will Affect Care: None Current Living Situation: Spouse Other Information That Helps Us Care for You: No Feels Safe at Home: Yes Safety Concerns: Feels Safe At This Time Smoking Status: Never smoker Hx Alcohol Use: No Hx Substance Use: No Review of Systems All systems reviewed & are unremarkable except as noted in HPI & below Physical Exam Vital Signs (Past 24 Hours): Last Vital Signs Temp 36.4 C L 10/20/18 15:51 Pulse 93 H 10/20/18 16:31 Resp 20 10/20/18 16:31 BP 138/72 10/20/18 16:31 Pulse Ox 100 10/20/18 16:31 Physical Exam: GENERAL : No acute distress. Appears pale EYES: No icterus, gaze conjugate NOSE: No evidence of epistaxis MOUTH: No lesions or candidiasis NECK: Supple LUNGS: CTA B/L, no wheezes, rales or rhonchi HEART: Regular, rate controlled ABDOMEN: Soft, ND, BS Present. Some tenderness with deep palpation EXTREMITIES: No LE edema, pedal pulses intact NEURO: A&OX3. Results & Data Laboratory Results Abnormal lab results 10/20/18 10/20/18 10/20/18 Range/Units 15:25 15:25 15:25 RBC 2.15 L (4.2-5.4) M/uL Hgb 6.4 L* (12.0-16.0) g/dL POC Hgb (12.0-16.0) g/dl Hct 19.2 L* (37-47) % POC Hct (37-47) % RDW Std Deviation 48.4 H (36.4-46.3) fL RDW Coeff of Liane 15.3 H (11.5-14.5) % Plt Count 419 H (130-400) K/uL Immature Gran # (Auto) 0.05 H (0.00-0.02) K/uL Neut # (Auto) 8.52 H (1.4-6.5) K/uL PT > 90.0 H (9.0-12.0) Seconds INR > 10.4 H* (0.9-1.1) APTT 55.8 H* (21.0-31.0) Seconds POC Potassium (3.3-5.0) mEq/L Potassium 5.4 H (3.5-5.1) mmol/L Carbon Dioxide 17 L (21-32) mmol/L POC Total CO2 (24-31) mEq/l Anion Gap 18.0 H (3-11) POC BUN (7-18) mg/dl BUN 34 H (7-18) mg/dl Creatinine 1.44 H (0.6-1.2) mg/dl BUN/Creatinine Ratio 23.9 H (10-20) Glucose 286 H (70-99) mg/dl POC Glucose (other) (70-99) mg/dl AST 142 H (15-37) U/L Alkaline Phosphatase 778 H (45-117) U/L Albumin 2.1 L (3.4-5.0) gm/dl Globulin 4.4 H (2.5-4.0) gm/dl Albumin/Globulin Ratio 0.5 L (0.9-2) 10/20/ Range/Units 15:48 RBC (4.2-5.4) M/uL Hgb (12.0-16.0) g/dL POC Hgb 6.5 L* (12.0-16.0) g/dl Hct (37-47) % POC Hct 19 L* (37-47) % RDW Std Deviation (36.4-46.3) fL RDW Coeff of Liane (11.5-14.5) % Plt Count (130-400) K/uL Immature Gran # (Auto) (0.00-0.02) K/uL Neut # (Auto) (1.4-6.5) K/uL PT (9.0-12.0) Seconds INR (0.9-1.1) APTT (21.0-31.0) Seconds POC Potassium 5.3 H (3.3-5.0) mEq/L Potassium (3.5-5.1) mmol/L Carbon Dioxide (21-32) mmol/L POC Total CO2 16 L (24-31) mEq/l Anion Gap (3-11) POC BUN 30 H (7-18) mg/dl BUN (7-18) mg/dl Creatinine (0.6-1.2) mg/dl BUN/Creatinine Ratio (10-20) Glucose (70-99) mg/dl POC Glucose (other) 286 H (70-99) mg/dl AST (15-37) U/L Alkaline Phosphatase (45-117) U/L Albumin (3.4-5.0) gm/dl Globulin (2.5-4.0) gm/dl Albumin/Globulin Ratio (0.9-2) Diagnostic Findings XR chest 1V portable CLINICAL HISTORY: weakness COMPARISON STUDY: 07/04/2017 FINDINGS: The cardiac and mediastinal contours remain stable. There is persistent interstitial thickening. There is no lobar consolidation. There are no pleural effusions. There is no overt failure.[ IMPRESSION: Asymmetric left greater than right chronic interstitial thickening, similar to the preceding study. Electronically signed by: Wai Fuller M.D. 10/20/2018 4:17 PM Code Status & VTE Plan Code Status Level V; DNR/DNI Patient requesting palliative care VTE Prophylaxis Plan Reason for no VTE drug order: Contraindicated Reason for no VTE mechanical prophylaxis: Refusal of treatmnt by pt Critical Care Time Critical Care Time: No Supervising Physician Co-Signing Physician Notes Attending Addendum: delayed entry date of service as noted above care coordinated with KARIE Barker please refer to her notes for full details, I agree with her notes patient seen and examined, records reviewed by myself as well on exam, patient seen resting in bed, complains of nausea not in respiratory distress denies other symptoms VS noted and reviewed oriented , not in distress, speaks in sentences with no effort nor accessory muscle use pale normal rate, regular rhythm, no murmurs clear breath sounds bilaterally non distended, soft, nontender no bipedal edema, erythema, warmth no neuro deficits Hg 6.4 Crea 1.44 ASSESSMENT AND PLAN POSSIBLE UPPER GI BLEED Protoni Drip, PRN Antiemetics patient and family requesting focus on comfort, no invasive interventions ACUTE BLOOD LOSS ANEMIA patient declined transfusion other diagnoses and plan of care as per KARIE Duarte MD
[2018-10-20] MEDS ORDERED: ALUMINUM/MAGNESIUM SUSP 30 ML UDC PO PRN (18:33)
[2018-10-20] MEDS ORDERED: POLYETHYLENE (MIRALAX) 17 GM PACK PO PRN (18:33)
[2018-10-20] MEDS ORDERED: ACETAMINOPHEN PO PRN (18:33)
[2018-10-20] MEDS ORDERED: CAFFEINE PO PRN (18:33)
[2018-10-20] MEDS ORDERED: MAGNESIUM HYDROXIDE SUSP 30 ML UDC PO PRN (18:33)
[2018-10-20] MEDS ORDERED: ACETAMINOPHEN 325 MG TAB PO PRN (18:33)
--- NOTE | 2018-10-20 19:14 | Emergency Department Note ---
Entered by Amari Rankin acting as a scribe for Godwin Ledbetter MD History of Present Illness General Chief complaint: GI Assessment Stated complaint: HEMATEMESIS Time Seen by Provider: 10/20/18 15:25 Source: patient and RN notes reviewed History of Present Illness Provider complaint: Hematemesis Onset (ago): hour(s) greater than 10 Location: abdomen Radiation: non-radiation Pain Consistency: + intermittent Relieved By: + none Exacerbated By: + none Associated symptoms: + nausea/vomiting The patient is an 83 year old female who presents to the Emergency Room with complaints of intermittent hematemesis that started this morning around 0430, 11 hours ago, per the nursing note. The note mentions how she has not been feeling well for a couple of weeks before the vomiting started today. The patient states she vomited about 3 times today. The patient is on Coumadin. The patient does have a history of recurrent pancreatic cancer. She denies any hematochezia or melena and is refusing any CPR or intubation, should it get to that point. Home Medications Home Medications Medication Instructions Recorded Confirmed Type Ferrous Sulfate Tab 162.5 mg PO BID 10/20/18 10/20/18 History Tylenol-Caffeine 500-65mg 1 tab PO DAILY PRN 10/20/18 10/20/18 History cholecalciferol (vitamin D3) 2,000 unit PO DAILY 10/20/18 10/20/18 History [Vitamin D3] docusate sodium 100 mg PO BID 10/20/18 10/20/18 History fenofibrate 160 mg PO DAILY 10/20/18 10/20/18 History pkacpc-knehzxcs-safttbl [Creon] 1 cap PO QID 10/20/18 10/20/18 History mirtazapine [Remeron] 15 mg PO HS 10/20/18 10/20/18 History sennosides [Senokot] 8.6 mg PO DAILY 10/20/18 10/20/18 History warfarin 3 mg PO 5XWK 10/20/18 10/20/18 History warfarin [Coumadin] 4.5 mg PO 2XWK 10/20/18 10/20/18 History Allergies Allergy/AdvReac Type Severity Reaction Status Date / Time Gbntxjn-[id number]-[id number] Reductase Allergy Unknown muscle Verified 03/24/18 04:58 Inhibitor pain,weakness gemfibrozil Allergy Unknown Verified 10/20/18 16:39 tramadol AdvReac Severe Gastrointestinal Verified 10/20/18 16:39 Upset ezetimibe [From Zetia] AdvReac Fatigued Verified 10/20/18 16:39 ibuprofen AdvReac CAN NOT Verified 10/20/18 16:39 TAKE BECAUSE IS ON COUMADIN Past Med/Surg History Medical History Diabetes (Chronic) HTN (hypertension) (Chronic) Hypercholesteremia (Chronic) Shortness of breath (Acute) Back pain (Acute) Diabetes (Chronic) Hypertension (Chronic) Anxiety (Acute) Back pain (Acute) Carotid artery narrowing Chest pain Dyspnea (Acute) Obstructive jaundice due to malignant neoplasm Pancreatitis due to biliary obstruction Pancreatitis due to obstruction of pancreatic duct Shortness of breath (Acute) Family history non-contributory History of biliary stent insertion Family History Other Family history non-contributory Social History Preferred Language: Persian Communication Ability: Effective Outside [employer] Sales Required: No Beliefs That Will Affect Care: None Current Living Situation: Spouse Other Information That Helps Us Care for You: No Feels Safe at Home: Yes Safety Concerns: Feels Safe At This Time Smoking Status: Never smoker Hx Alcohol Use: No Hx Substance Use: No Review of Systems See HPI for pertinent positives & negatives. and A total of 10 systems reviewed and were otherwise negative Physical Exam Vital Signs Vital Signs - 24 hr 10/20/18 15:22 10/20/18 15:37 10/20/18 15:44 Temperature 36.5 C Temperature Source Oral Sepsis Recent Fever Within 48 Hours No Sepsis New/Unexplained Change in Mental Status No Sepsis Action Taken by Nursing No Action Required Pulse Rate 102 H 96 H 99 H Pulse Rate [Finger] 102 H Pulse Rate from SpO2 Sensor 99 H Pulse Rhythm Regular Respiratory Rate 36 H 31 H 16 Respiratory Effort / Characteristics Respiratory Depth Respiratory Pattern Blood Pressure 102/82 Blood Pressure [Left Arm] Blood Pressure [Right Arm] 102/82 Blood Pressure Mean 88 Blood Pressure Mean [Left Arm] Blood Pressure Mean [Right Arm] 88 Blood Pressure Position [Left Arm] Pulse Oximetry 87 L 98 100 Oxygen Delivery Method Room Air Nasal Cannula Oxygen Flow Rate 10/20/18 15:45 10/20/18 15:51 10/20/18 15:52 Temperature 36.4 C L Temperature Source Sepsis Recent Fever Within 48 Hours Sepsis New/Unexplained Change in Mental Status Sepsis Action Taken by Nursing Pulse Rate 96 H 94 H 94 H Pulse Rate [Finger] Pulse Rate from SpO2 Sensor 93 H 92 H 93 H Pulse Rhythm Respiratory Rate 32 H 24 29 H Respiratory Effort / Characteristics Respiratory Depth Respiratory Pattern Blood Pressure 132/79 Blood Pressure [Left Arm] Blood Pressure [Right Arm] Blood Pressure Mean 96 Blood Pressure Mean [Left Arm] Blood Pressure Mean [Right Arm] Blood Pressure Position [Left Arm] Pulse Oximetry 98 100 99 Oxygen Delivery Method Nasal Cannula Oxygen Flow Rate 2 10/20/18 16:00 10/20/18 16:01 10/20/18 16:15 Temperature Temperature Source Sepsis Recent Fever Within 48 Hours Sepsis New/Unexplained Change in Mental Status Sepsis Action Taken by Nursing Pulse Rate 94 H 93 H 89 Pulse Rate [Finger] Pulse Rate from SpO2 Sensor 94 H 92 H 91 H Pulse Rhythm Respiratory Rate 25 H 22 26 H Respiratory Effort / Characteristics Respiratory Depth Respiratory Pattern Blood Pressure 122/77 147/81 H Blood Pressure [Left Arm] Blood Pressure [Right Arm] Blood Pressure Mean 92 103 Blood Pressure Mean [Left Arm] Blood Pressure Mean [Right Arm] Blood Pressure Position [Left Arm] Pulse Oximetry 100 99 100 Oxygen Delivery Method Nasal Cannula Nasal Cannula Nasal Cannula Oxygen Flow Rate 2 2 2 10/20/18 16:30 10/20/18 16:31 10/20/18 16:32 Temperature Temperature Source Sepsis Recent Fever Within 48 Hours Sepsis New/Unexplained Change in Mental Status Sepsis Action Taken by Nursing Pulse Rate 97 H 93 H 97 H Pulse Rate [Finger] Pulse Rate from SpO2 Sensor 98 H 94 H 89 Pulse Rhythm Respiratory Rate 23 20 24 Respiratory Effort / Characteristics Respiratory Depth Respiratory Pattern Blood Pressure 138/72 Blood Pressure [Left Arm] Blood Pressure [Right Arm] Blood Pressure Mean 94 Blood Pressure Mean [Left Arm] Blood Pressure Mean [Right Arm] Blood Pressure Position [Left Arm] Pulse Oximetry 100 100 100 Oxygen Delivery Method Nasal Cannula Nasal Cannula Oxygen Flow Rate 2 2 10/20/18 16:45 10/20/18 16:46 10/20/18 17:00 Temperature Temperature Source Sepsis Recent Fever Within 48 Hours Sepsis New/Unexplained Change in Mental Status Sepsis Action Taken by Nursing Pulse Rate 98 H 97 H 96 H Pulse Rate [Finger] Pulse Rate from SpO2 Sensor 99 H 99 H 96 H Pulse Rhythm Respiratory Rate 30 H 25 H 17 Respiratory Effort / Characteristics Respiratory Depth Respiratory Pattern Blood Pressure 135/69 Blood Pressure [Left Arm] Blood Pressure [Right Arm] Blood Pressure Mean 91 Blood Pressure Mean [Left Arm] Blood Pressure Mean [Right Arm] Blood Pressure Position [Left Arm] Pulse Oximetry 100 100 100 Oxygen Delivery Method Nasal Cannula Nasal Cannula Nasal Cannula Oxygen Flow Rate 2 2 2 10/20/18 17:01 10/20/18 17:15 10/20/18 17:16 Temperature Temperature Source Sepsis Recent Fever Within 48 Hours Sepsis New/Unexplained Change in Mental Status Sepsis Action Taken by Nursing Pulse Rate 98 H 100 H 95 H Pulse Rate [Finger] Pulse Rate from SpO2 Sensor 96 H 95 H 94 H Pulse Rhythm Respiratory Rate 30 H 25 H 22 Respiratory Effort / Characteristics Respiratory Depth Respiratory Pattern Blood Pressure 119/79 132/60 Blood Pressure [Left Arm] Blood Pressure [Right Arm] Blood Pressure Mean 92 84 Blood Pressure Mean [Left Arm] Blood Pressure Mean [Right Arm] Blood Pressure Position [Left Arm] Pulse Oximetry 100 100 100 Oxygen Delivery Method Nasal Cannula Nasal Cannula Nasal Cannula Oxygen Flow Rate 2 2 2 10/20/18 17:30 10/20/18 17:45 10/20/18 17:46 Temperature Temperature Source Sepsis Recent Fever Within 48 Hours Sepsis New/Unexplained Change in Mental Status Sepsis Action Taken by Nursing Pulse Rate 98 H 92 H 92 H Pulse Rate [Finger] Pulse Rate from SpO2 Sensor 99 H 99 H 93 H Pulse Rhythm Respiratory Rate 24 26 H 20 Respiratory Effort / Characteristics Spontaneous Short of Breath SOB on Exertion Respiratory Depth Normal Respiratory Pattern Tachypnea Blood Pressure 115/73 97/67 L Blood Pressure [Left Arm] Blood Pressure [Right Arm] Blood Pressure Mean 87 77 Blood Pressure Mean [Left Arm] Blood Pressure Mean [Right Arm] Blood Pressure Position [Left Arm] Pulse Oximetry 100 100 100 Oxygen Delivery Method Nasal Cannula Nasal Cannula Nasal Cannula Oxygen Flow Rate 2 2 2 10/20/18 18:33 Temperature 36.6 C Temperature Source Oral Sepsis Recent Fever Within 48 Hours Sepsis New/Unexplained Change in Mental Status Sepsis Action Taken by Nursing Pulse Rate Pulse Rate [Finger] 106 H Pulse Rate from SpO2 Sensor Pulse Rhythm Respiratory Rate 18 Respiratory Effort / Characteristics Respiratory Depth Respiratory Pattern Blood Pressure Blood Pressure [Left Arm] 145/77 H Blood Pressure [Right Arm] Blood Pressure Mean Blood Pressure Mean [Left Arm] 99 Blood Pressure Mean [Right Arm] Blood Pressure Position [Left Arm] Lying Pulse Oximetry 94 Oxygen Delivery Method Nasal Cannula Oxygen Flow Rate 2 GENERAL: Patient is in no acute distress. HEENT: No acute trauma, normocephalic atraumatic, mucous membranes dry with coffee ground material noted on her lips, no nasal congestion, no scleral icterus. NECK: No stridor, no adenopathy, no meningismus, trachea is midline. LUNGS: Clear to auscultation bilaterally, no wheeze, no rhonchi, breath sounds equal. HEART: Without murmurs gallops or rubs, regular rate and rhythm. ABDOMEN: Soft, nontender, bowel sounds positive, no hernias, no peritonitis. EXTREMITIES: No cyanosis or edema, full range of motion of all the joints without pain or difficulty, no signs for acute trauma. NEUROLOGIC: Oriented x 3, no acute motor or sensory deficits, no focal weakness. SKIN: Very pale with no rash, no jaundice, no diaphoresis. Course 1527: Past medical records reviewed. The patient was evaluated in room D02A, and a complete history and physical examination were performed. 1537: I spoke to Dr. Joseph Olmos about the patient's case and she is ordering Kcentra. 1558: I updated the patient and her family on her lab results and plan of treatment. She is aware she will be hospitalized but refuses any blood transfusions. 1600: I spoke to Dr. Joselo Gonzales about the patient's case and he said to just correct the coagulopathy for now because she is not stable enough for an endoscopy. 1623: I spoke to Dr. Gerald Lima's [facility]ENTER[facility], about the patient's case and they will be accepting her for further evaluation. Consultations Consultation #1: I spoke to Dr. Joseph Olmos about the patient's case and she is ordering Kcentra. Time: 15:37 Consultation #2: I spoke to Dr. Joselo Gonzales about the patient's case and he said to just correct the coagulopathy for now because she is not stable enough for an endoscopy. Time: 16:00 Consultation #3: I spoke to Dr. Gerald Alvarezs [facility]ENTER[facility], about the patient's case and they will be accepting her for further evaluation. Time: 16:23 Administered Medications Lipase/Protease/Amylase (Pancreaze (Lipase 10,500u)) 1 cap PO ACHS GWEN Stop: 11/19/18 20:59 Last Admin: 10/20/18 20:35 Dose: 1 cap Documented by: [id number] Docusate Sodium (Colace) 100 mg PO BID GWEN Stop: 11/19/18 20:59 Last Admin: 10/20/18 20:35 Dose: 100 mg Documented by: [id number] Ferrous Sulfate (Feosol) 325 mg PO BID GWEN Stop: 11/19/18 20:59 Last Admin: 10/20/18 20:35 Dose: 325 mg Documented by: [id number] Pantoprazole Sodium 40 mg/ (Dextrose) 100 mls @ 20 mls/hr IV Q5H GWEN Stop: 11/19/18 15:44 Last Admin: 10/20/18 20:34 Dose: 20 mls/hr Documented by: [id number] Infusion: 10/20/18 20:34 Dose: 20 mls/hr Documented by: [id number] Admin: 10/20/18 16:49 Dose: 20 mls/hr Documented by: [id number] Sodium Bicarbonate 75 meq/ (Sodium Chloride) 1,075 mls @ 80 mls/hr IV .[id number] GWEN Stop: 11/19/18 20:29 Last Admin: 10/20/18 21:52 Dose: 80 mls/hr Documented by: [id number] Insulin Aspart (Novolog Flexpen) 0 units SC ACHS GWEN Stop: 11/19/18 20:59 Last Admin: 10/20/18 20:34 Dose: 4 units Documented by: [id number] Cosigned by: [id number] Mirtazapine (Remeron) 15 mg PO HS GWEN Stop: 11/19/18 20:59 Last Admin: 10/20/18 20:34 Dose: 15 mg Documented by: [id number] Ondansetron HCl (Zofran) 4 mg IV Q6H PRN PRN Reason: Nausea Stop: 11/19/18 18:32 Last Admin: 10/20/18 20:52 Dose: 4 mg Documented by: [id number] Discontinued Medications Pantoprazole Sodium (Protonix Bolus/Drip) 0 mls @ 1 mls/hr IV ONE STA Stop: 10/20/18 15:39 Last Admin: 10/20/18 16:36 Dose: Not Given Documented by: [id number] Phytonadione 10 mg/ Sodium (Chloride) 51 mls @ 102 mls/hr IV ONE ONE Stop: 10/20/18 16:02 Last Infusion: 10/20/18 16:21 Dose: 0 mls/hr Documented by: [id number] Admin: 10/20/18 15:51 Dose: 102 mls/hr Documented by: [id number] Sodium Chloride (Nss 1000ml) 1,000 mls @ 999 mls/hr IV .Q1H1M GWEN Stop: 10/20/18 16:45 Last Infusion: 10/20/18 16:36 Dose: 0 mls/hr Documented by: [id number] Admin: 10/20/18 15:40 Dose: 999 mls/hr Documented by: [id number] Pantoprazole Sodium 80 mg/ (Dextrose) 120 mls @ 400 mls/hr IV NOW ONE Stop: 10/20/18 15:55 Last Infusion: 10/20/18 16:48 Dose: 0 mls/hr Documented by: [id number] Admin: 10/20/18 16:30 Dose: 400 mls/hr Documented by: [id number] Prothrombin Complex Concent ( (Human) 2,500 units/ Syringe) 100 mls @ 10 mls/min IV NOW ONE; Protocol Stop: 10/20/18 16:24 Last Admin: 10/20/18 15:53 Dose: 10 mls/min Documented by: [id number] Ondansetron HCl (Zofran) 4 mg IV NOW STA Stop: 10/20/18 15:34 Last Admin: 10/20/18 15:41 Dose: 4 mg Documented by: [id number] Ondansetron HCl (Zofran) Confirm Administered Dose 4 mg .ROUTE .STK-MED ONE Stop: 10/20/18 15:40 Last Admin: 10/20/18 15:41 Dose: Not Given Documented by: [id number] Medical Decision Making Differential Diagnosis Differential Diagnoses: GI bleed, gastritis, ulcer, anemia, dehydration, coagulopathy, electrolyte imbalance, renal failure, liver failure, and aspiration, amongst others. Medical Records Attestation: I reviewed the patient's medical records. Home Medications Current Medication List: was personally reviewed by me Laboratory Data Attestation: I reviewed the patient's lab results. Result diagrams: 10/20/18 15:25 10/20/18 15:25 Lab Results 10/20/18 10/20/18 10/20/18 Range/Units 15:25 15:25 15:25 WBC 10.44 (4.8-10.8) K/uL RBC 2.15 L (4.2-5.4) M/uL Hgb 6.4 L* (12.0-16.0) g/dL POC Hgb (12.0-16.0) g/dl Hct 19.2 L* (37-47) % POC Hct (37-47) % MCV 89.3 (80-100) fL MCH 29.8 (25-34) pg MCHC 33.3 (32-36) g/dL RDW Std Deviation 48.4 H (36.4-46.3) fL RDW Coeff of Liane 15.3 H (11.5-14.5) % Plt Count 419 H (130-400) K/uL MPV 9.9 (7.4-10.4) fL Immature Gran % (Auto) 0.5 % Neut % (Auto) 81.6 % Lymph % (Auto) 13.5 % Obion % (Auto) 4.4 % Eos % (Auto) 0.0 % Baso % (Auto) 0.0 % Immature Gran # (Auto) 0.05 H (0.00-0.02) K/uL Neut # (Auto) 8.52 H (1.4-6.5) K/uL Lymph # (Auto) 1.41 (1.2-3.4) K/uL Ob[place] # (Auto) 0.46 (0.11-0.59) K/uL Eos # (Auto) 0.00 (0-0.5) K/uL Baso # (Auto) 0.00 (0-0.2) K/uL RBC Morphology Unremarkable PT > 90.0 H (9.0-12.0) Seconds INR > 10.4 H* (0.9-1.1) APTT 55.8 H* (21.0-31.0) Seconds PTT Ratio 2.1 POC Sodium (135-144) mEq/L Sodium 140 (136-145) mmol/L POC Potassium (3.3-5.0) mEq/L Potassium 5.4 H (3.5-5.1) mmol/L POC Chloride (101-112) mEq/L Chloride 106 (98-107) mmol/L Carbon Dioxide 17 L (21-32) mmol/L POC Total CO2 (24-31) mEq/l Anion Gap 18.0 H (3-11) POC Anion Gap (16-25) mmol/L POC BUN (7-18) mg/dl BUN 34 H (7-18) mg/dl Creatinine 1.44 H (0.6-1.2) mg/dl POC Creatinine (0.6-1.3) mg/dl Est Cr Clr Drug Dosing Not Reportable Est GFR ( Amer) 39.1 Est GFR (Non-Af Amer) 33.7 BUN/Creatinine Ratio 23.9 H (10-20) Glucose 286 H (70-99) mg/dl POC Glucose (70-99) POC Glucose (other) (70-99) mg/dl Calcium 8.5 (8.5-10.1) mg/dl POC Ioniz Calcium Elda (1.12-1.32) mmol/l Magnesium 2.0 (1.8-2.4) mg/dl Total Bilirubin 0.6 (0.2-1) mg/dl AST 142 H (15-37) U/L ALT 55 (12-78) U/L Alkaline Phosphatase 778 H (45-117) U/L Troponin I 0.018 (0-0.045) ng/ml Total Protein 6.5 (6.4-8.2) gm/dl Albumin 2.1 L (3.4-5.0) gm/dl Globulin 4.4 H (2.5-4.0) gm/dl Albumin/Globulin Ratio 0.5 L (0.9-2) 10/20/18 10/20/18 Range/Units 15:48 20:22 WBC (4.8-10.8) K/uL RBC (4.2-5.4) M/uL Hgb (12.0-16.0) g/dL POC Hgb 6.5 L* (12.0-16.0) g/dl Hct (37-47) % POC Hct 19 L* (37-47) % MCV (80-100) fL MCH (25-34) pg MCHC (32-36) g/dL RDW Std Deviation (36.4-46.3) fL RDW Coeff of Liane (11.5-14.5) % Plt Count (130-400) K/uL MPV (7.4-10.4) fL Immature Gran % (Auto) % Neut % (Auto) % Lymph % (Auto) % Ob[place] % (Auto) % Eos % (Auto) % Baso % (Auto) % Immature Gran # (Auto) (0.00-0.02) K/uL Neut # (Auto) (1.4-6.5) K/uL Lymph # (Auto) (1.2-3.4) K/uL Obion # (Auto) (0.11-0.59) K/uL Eos # (Auto) (0-0.5) K/uL Baso # (Auto) (0-0.2) K/uL RBC Morphology PT (9.0-12.0) Seconds INR (0.9-1.1) APTT (21.0-31.0) Seconds PTT Ratio POC Sodium 137 (135-144) mEq/L Sodium (136-145) mmol/L POC Potassium 5.3 H (3.3-5.0) mEq/L Potassium (3.5-5.1) mmol/L POC Chloride 105 (101-112) mEq/L Chloride (98-107) mmol/L Carbon Dioxide (21-32) mmol/L POC Total CO2 16 L (24-31) mEq/l Anion Gap (3-11) POC Anion Gap 22.0 (16-25) mmol/L POC BUN 30 H (7-18) mg/dl BUN (7-18) mg/dl Creatinine (0.6-1.2) mg/dl POC Creatinine 1.1 (0.6-1.3) mg/dl Est Cr Clr Drug Dosing Est GFR ( Amer) Est GFR (Non-Af Amer) BUN/Creatinine Ratio (10-20) Glucose (70-99) mg/dl POC Glucose 274 H (70-99) POC Glucose (other) 286 H (70-99) mg/dl Calcium (8.5-10.1) mg/dl POC Ioniz Calcium Elda 1.14 (1.12-1.32) mmol/l Magnesium (1.8-2.4) mg/dl Total Bilirubin (0.2-1) mg/dl AST (15-37) U/L ALT (12-78) U/L Alkaline Phosphatase (45-117) U/L Troponin I (0-0.045) ng/ml Total Protein (6.4-8.2) gm/dl Albumin (3.4-5.0) gm/dl Globulin (2.5-4.0) gm/dl Albumin/Globulin Ratio (0.9-2) Imaging Data Radiologist's Impression: Radiology results as stated below per my review and the radiologist's interpretation: XR chest 1V portable CLINICAL HISTORY: weakness COMPARISON STUDY: 07/04/2017 FINDINGS: The cardiac and mediastinal contours remain stable. There is persistent interstitial thickening. There is no lobar consolidation. There are no pleural effusions. There is no overt failure.[ IMPRESSION: Asymmetric left greater than right chronic interstitial thickening, similar to the preceding study. Electronically signed by: Wai Fuller M.D. 10/20/2018 4:17 PM ECG Data Attestation: I personally reviewed and interpreted this ECG as follows: Indication: vomiting Rate (beats per minute): 97 Rhythm: sinus rhythm Findings: + other (Old lateral infarct) and + PAC; no ST elevation and no acute ischemic change Blood Pressure Blood Pressure Findings: Normal blood pressure Blood Pressure Disposition: further management by hospitalist [facility] Narrative There is no leukocytosis. The patient is anemic with a hemoglobin around 6. Platelet count was normal. INR was markedly elevated at greater than 10. Potassium slightly high at 5.4. CO2 was low consistent with some mild metabolic acidosis. Creatinine was elevated consistent with dehydration. There were some elevated liver enzymes, likely consistent with her history of pancreatic cancer. EKG showed a sinus rhythm, no acute ischemia. Cardiac enzyme testing x1 was not consistent with acute cardiac injury. Chest film showed some chronic findings, no free air, no pneumonia. Given the patient's situation, she was aggressively managed. I spoke with her and her family. She is not to be intubated, CPR is not to be done. She does not want a blood transfusion but has consented to IV fluids, IV medications and even endoscopy. Patient received IV saline, she was given 1 L. She received IV Protonix and was placed on a Protonix drip. She received IV Zofran for nausea. She received IV vitamin K and IV K Centra for the high INR. I did speak to my coagulation optimization consultant before the K Centra was given. The patient is in need of a hospital stay, she understands the seriousness of her situation. I did speak to GI, they did not feel an emergent endoscopy was indicated. I spoke to the patient and case management, I talked with her family. I spoke with the on-call hospitalist. Patient currently seems to be resting comfortably. She understands fully that this bleeding if it continues, could cause her . Impression & Plan Hematemesis, GI bleed, Anemia, Supratherapeutic INR Discharge Plan Visit Data *Final* Discharge Date/Time: 10/20/18 18:00 Chief Complaint: GI Assessment Stated Complaint: HEMATEMESIS ED Provider: Godwin Ledbetter Discharge Problem: Hematemesis, GI bleed, Anemia, Supratherapeutic INR Patient Disposition: Admitted As Inpatient Discharge Instructions Interventions: ED Discharge Assessment Last Done: 10/20/18 18:00 Discharge Problem: Hematemesis Qualifiers: Nausea presence: with nausea Qualified Code(s): K92.0 - Hematemesis GI bleed Qualifiers: GI bleed type/associated pathology: gastrointestinal hemorrhage with hematemesis Qualified Code(s): K92.0 - Hematemesis Anemia Qualifiers: Anemia type: unspecified type Qualified Code(s): D64.9 - Anemia, unspecified The scribe's documentation has been prepared under my direction and personally reviewed by me in its entirety. I confirm that the note above accurately reflects all work, treatment, procedures, and medical decision making performed by me.
[2018-10-20] MEDS ORDERED: SODIUM BICARBONATE 8.4% 75 MEQ in SODIUM CHLORIDE 0.45 % 1,000 ML IV SCH (20:30)
[2018-10-20] MEDS: INSULIN ASPART 100 UNITS/ML 3 ML PEN SC SCH (20:34)
[2018-10-20] MEDS: MIRTAZAPINE TAB 15 MG TAB PO SCH (20:34)
[2018-10-20] MEDS: PANCREAZE (LIPASE 10,500U) CAP PO SCH (20:35)
[2018-10-20] MEDS: DOCUSATE SODIUM 100 MG CAP PO SCH (20:35)
[2018-10-20] MEDS: FERROUS SULFATE 325 MG TAB PO SCH (20:35)
[2018-10-20] MEDS: ONDANSETRON INJ 2 MG/ML 2 ML VIAL IV PRN (20:52)
[2018-10-21] MEDS: PANTOprazole 40 MG in DEXTROSE 5% 100 ML IV SCH ×2 (01:47→06:28)
[2018-10-21] MEDS ORDERED: PROMETHAZINE HCL 12.5 MG in SODIUM CHLORIDE 0.9% 50 ML IV PRN (01:55)
[2018-10-21] MEDS ORDERED: MoRPHine SULFATE 4 MG/ML 1 ML CARP\\VIAL IV PRN (01:55)
[2018-10-21] MEDS ORDERED: MoRPHine SULFATE 2 MG/ML CARP IV PRN ×2 (01:56→11:37)
[2018-10-21] MEDS: FERROUS SULFATE 325 MG TAB PO SCH ×2 (03:21→08:37)
[2018-10-21] MEDS: DOCUSATE SODIUM 100 MG CAP PO SCH ×2 (03:21→08:37)
[2018-10-21] MEDS: PANCREAZE (LIPASE 10,500U) CAP PO SCH ×2 (03:22→08:37)
[2018-10-21] MEDS: MIRTAZAPINE TAB 15 MG TAB PO SCH (03:22)
[2018-10-21] MEDS: ONDANSETRON INJ 2 MG/ML 2 ML VIAL IV PRN (04:54)
--- NOTE | 2018-10-21 08:21 | Palliative Care Consultation ---
Date of Consultation October 21, 2018 Assessment & Plan (1) Palliative care encounter: This is an 83 year old female who presented to the ED from home with 'bleeding'. Upon arrival, her INR was 8 and her Hgb was 6.4 for which Vitamin K and K Centra were administered. The patient has declined blood product infusion after discussion with the admitting provider. Additional PMH includes pancreatic CA with outlet obstruction, DVT (on Coumadin), GERD, chronic back pain, HLD, DM2, jaundice. Is a pleasant 83-year-old female who was diagnosed previously with pancreatic cancer with outlet obstruction. Palliative Care was consulted to discuss goals of care. -I met with patient in her room. Patient was only able to open her eyes slightly but moaned to my voice and touch -No family at bedside. I did phone Giovanni at the number in the chart and left a VM. -I then was able to speak with patient niece, Palak who is an RN at pain management with [facility] [place] I met with her and the patient , Giovanni. Multiple family members contacted and came into the room. -Plan for full transition to COMFORT MEASURES ONLY. -Per admitting provider note, patient had goal of returning home with hospice - patient is hemodynamically unstable with tachycardia and hypotension -Patient has Morphine 2 mg IV Q 4 PRN for pain, will increase the frequency to Q2 PRN for pain -At this time, I do not feel that the patient is stable enough for transport outside of the hospital, that being said patient is comfortable. -[facility] as family choice came to evaluate patient for GIP, but is not a candidate as all symptoms are being managed. -Palliative Performance Scale: 10% (2) Pancreatic cancer: -pancreatic CA with outlet obstruction -unknown timeline of events -Pt wants to pursue hospice per admitting providers note (3) Acute GI bleeding: -Patient presented with 'bleeding' and pt Hgb was 6.4 and INR 8.. Now Hgb 4.8 -Vitamin K+ and K+ Centra were administered -Per admitting provider, discussion held with patient and family and blood products were declined -Pt. becoming hemodynamically unstable -- tachycardic in 120's and hypotensive 80's/60's -call out to family to discuss GOC/Hospice - discussed further with multiple family members at bedside. History of Present Illness Reason for Consultation: Goals of Care Requesting Physician: Dr. Duarte Attending Physician: Jayme Duarte MD History of Present Illness This is an 83 year old female who presented to the ED from home with 'bleeding'. Upon arrival, her INR was 8 and her Hgb was 6.4 for which Vitamin K and K Centra were administered. The patient has declined blood product infusion after discussion with the admitting provider. Additional PMH includes pancreatic CA with outlet obstruction, DVT (on Coumadin), GERD, chronic back pain, HLD, DM2, jaundice. Is a pleasant 83-year-old female who was diagnosed previously with pancreatic cancer with outlet obstruction. Palliative Care was consulted to discuss goals of care. Please see the assessment and plan for further details. Thank you for involving the Palliative Care Team with the plan of care of this patient. Allergies Allergy/AdvReac Type Severity Reaction Status Date / Time Sbdgfzl-Hee-Nfh Reductase Allergy Unknown muscle Verified 03/24/18 04:58 Inhibitor pain,weakness gemfibrozil Allergy Unknown Verified 10/20/18 16:39 tramadol AdvReac Severe Gastrointestinal Verified 10/20/18 16:39 Upset ezetimibe [From Zetia] AdvReac Fatigued Verified 10/20/18 16:39 ibuprofen AdvReac CAN NOT Verified 10/20/18 16:39 TAKE BECAUSE IS ON COUMADIN Home Medications Home Medications Medication Instructions Recorded Confirmed Type Ferrous Sulfate Tab 162.5 mg PO BID 10/20/18 10/20/18 History Tylenol-Caffeine 500-65mg 1 tab PO DAILY PRN 10/20/18 10/20/18 History cholecalciferol (vitamin D3) 2,000 unit PO DAILY 10/20/18 10/20/18 History [Vitamin D3] docusate sodium 100 mg PO BID 10/20/18 10/20/18 History fenofibrate 160 mg PO DAILY 10/20/18 10/20/18 History zbfzus-ebmgleef-brvghwe [Creon] 1 cap PO QID 10/20/18 10/20/18 History mirtazapine [Remeron] 15 mg PO HS 10/20/18 10/20/18 History sennosides [Senokot] 8.6 mg PO DAILY 10/20/18 10/20/18 History warfarin 3 mg PO 5XWK 10/20/18 10/20/18 History warfarin [Coumadin] 4.5 mg PO 2XWK 10/20/18 10/20/18 History Patient History Medical History Diabetes (Chronic) HTN (hypertension) (Chronic) Hypercholesteremia (Chronic) Shortness of breath (Acute) Back pain (Acute) Diabetes (Chronic) Hypertension (Chronic) Anxiety (Acute) Back pain (Acute) Carotid artery narrowing Chest pain Dyspnea (Acute) Obstructive jaundice due to malignant neoplasm Pancreatitis due to biliary obstruction Pancreatitis due to obstruction of pancreatic duct Shortness of breath (Acute) Family history non-contributory History of biliary stent insertion Family History Other Family history non-contributory Social History Communication Ability: Unable Beliefs That Will Affect Care: None Current Living Situation: Spouse Other Information That Helps Us Care for You: No Feels Safe at Home: Yes Safety Concerns: Feels Safe At This Time Smoking Status: Never smoker Hx Alcohol Use: No Hx Substance Use: No Review of Systems unable to obtain at this time. patient moans to touch but does not follow commands. Physical Exam Vital Signs (Past 24 Hours): Last Vital Signs Temp 37.1 C 10/21/18 03:28 Pulse 107 H 10/21/18 03:28 Resp 20 10/21/18 03:28 BP 86/55 L 10/21/18 03:28 Pulse Ox 99 10/21/18 03:28 Physical Exam: pt lying in bed with eyes closed. Pt does open eyes somewhat, but does not respond to voice Eyes: PERRL, conjunctivae normal, anicteric sclerae ENMT: external ear and nose normal, oropharynx normal Respiratory: + uses accessory muscles (diaphragmatic breathing), + abnormal respiratory pattern and + grunting Auscultation: + diminished lung sounds and + wheezes (expiratory) Cardiovascular: Rate/Rhythm: regular rate, regular rhythm and + tachycardic Heart Sounds: normal S1 and normal S2 Extremities: + pedal edema Gastrointestinal (Abdomen): normal bowel sounds, soft, nontender, no hepatosplenomegaly Skin: no rashes, warm and dry normal turgor and + pallor Time Spent Midlevel Total time spent 70 minutes with > 50% of that time spent reviewing the chart, assessing the patient, discussing plan of care with family and IDT
[2018-10-21] MEDS: INSULIN ASPART 100 UNITS/ML 3 ML PEN SC SCH (08:40)
[2018-10-21] MEDS ORDERED: CHOLECALCIFEROL 1,000 UNITS TAB PO SCH (09:00)
[2018-10-21] MEDS ORDERED: NON-FORMULARY MEDICATION (Fenofibrate 160 MG) PO SCH (09:00)
[2018-10-21] MEDS ORDERED: SENNA 8.6 MG TAB PO SCH (09:00)
[2018-10-21 09:03] LABS: INR 1.8 (0.9-1.1); Prothrombin Time 17.5 Seconds (9.0-12.0)
[2018-10-21 09:04] LABS: Hemoglobin 4.8 g/dL (12.0-16.0); Mean Corpuscular Volume 88.8 fL (80-100); Mean Platelet Volume 10.3 fL (7.4-10.4); Platelet Count 317 K/uL (130-400); RDW Coefficient of Variation 15.7 % (11.5-14.5); RDW Standard Deviation 50.2 fL (36.4-46.3); Red Blood Count 1.69 M/uL (4.2-5.4); White Blood Count 27.77 K/uL (4.8-10.8)
[2018-10-21 09:40] LABS: Anisocytosis Present; Basophils # (auto) 0.01 K/uL (0-0.2); Immature Granulocytes # (auto) 0.19 K/uL (0.00-0.02); Immature Granulocytes % (auto) 0.7 %; Lymphocytes # (auto) 2.13 K/uL (1.2-3.4); Lymphocytes % (auto) 7.7 %; Monocytes # (auto) 2.68 K/uL (0.11-0.59); Monocytes % (auto) 9.7 %; Neutrophils # (auto) 22.76 K/uL (1.4-6.5); Neutrophils % (auto) 81.9 %; Poikilocytosis Present
[2018-10-21] MEDS ORDERED: ATROPINE SULFATE 1% OP SOLN 5 ML BTL PO PRN (11:45)
--- NOTE | 2018-10-22 06:37 | Discharge Summary ---
Date of Service October 24, 2018 Admission HPI Per Admitting Provider Attending: Dr. Munguiajessica Is a pleasant 83-year-old female who was diagnosed previously with pancreatic cancer with outlet obstruction. She has previously been admitted for obstructive jaundice as well as GI bleed. The patient was at home today and began to have bleeding and was instructed to come to the emergency department. She was found to have an elevated INR of 8 as well as a low hemoglobin of 6.4 and appeared to be pale. She was treated with K Centra and vitamin K. When given the option of transfusion the patient refused and requested palliative care. I did speak with the patient, the patient's , 2 brothers, and the patient's niece who is very active in her care and all are in agreement that palliative care is a direction that should be pursued. The patient currently has no abdominal pain. She has no rectal pain. She denies back pain or flank pain. She does feel weak but has no shortness of breath, chest pain, chest tightness. She is hemodynamically stable at this time and is on 2 L of supplemental oxygen via nasal cannula for comfort. At this point patient will be admitted for palliative care and for arrangements for hospice. 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 Discharge Data Consultations 10/20/18 16:24 ED Decision to Admit Stat 10/20/18 18:33 Consult Case Management - Discharge Planning Routine Consult Gastroenterology Routine Consult Palliative Care Stat
--- NOTE | 2018-10-22 06:38 | Gastrointestinal Consultation ---
Date of Consultation October 25, 2018 History of Present Illness Attending Physician: Jayme Duarte MD Allergies Allergy/AdvReac Type Severity Reaction Status Date / Time Ucztbxv-Qtb-Phm Reductase Allergy Unknown muscle Verified 03/24/18 04:58 Inhibitor pain,weakness gemfibrozil Allergy Unknown Verified 10/20/18 16:39 tramadol AdvReac Severe Gastrointestinal Verified 10/20/18 16:39 Upset ezetimibe [From Zetia] AdvReac Fatigued Verified 10/20/18 16:39 ibuprofen AdvReac CAN NOT Verified 10/20/18 16:39 TAKE BECAUSE IS ON COUMADIN Home Medications Home Medications Medication Instructions Recorded Confirmed Type Ferrous Sulfate Tab 162.5 mg PO BID 10/20/18 10/20/18 History Tylenol-Caffeine 500-65mg 1 tab PO DAILY PRN 10/20/18 10/20/18 History cholecalciferol (vitamin D3) 2,000 unit PO DAILY 10/20/18 10/20/18 History [Vitamin D3] docusate sodium 100 mg PO BID 10/20/18 10/20/18 History fenofibrate 160 mg PO DAILY 10/20/18 10/20/18 History ivevyr-okkkyzhz-fbrfipl [Creon] 1 cap PO QID 10/20/18 10/20/18 History mirtazapine [Remeron] 15 mg PO HS 10/20/18 10/20/18 History sennosides [Senokot] 8.6 mg PO DAILY 10/20/18 10/20/18 History warfarin 3 mg PO 5XWK 10/20/18 10/20/18 History warfarin [Coumadin] 4.5 mg PO 2XWK 10/20/18 10/20/18 History Patient History Medical History Diabetes (Chronic) HTN (hypertension) (Chronic) Hypercholesteremia (Chronic) Shortness of breath (Acute) Back pain (Acute) Diabetes (Chronic) Hypertension (Chronic) Anxiety (Acute) Back pain (Acute) Carotid artery narrowing Chest pain Dyspnea (Acute) Obstructive jaundice due to malignant neoplasm Pancreatitis due to biliary obstruction Pancreatitis due to obstruction of pancreatic duct Shortness of breath (Acute) Family history non-contributory History of biliary stent insertion Family History Other Family history non-contributory Social History Communication Ability: Unable Beliefs That Will Affect Care: None Current Living Situation: Spouse Other Information That Helps Us Care for You: No Feels Safe at Home: Yes Safety Concerns: Feels Safe At This Time Smoking Status: Never smoker Hx Alcohol Use: No Hx Substance Use: No Physical Exam Vital Signs (Past 24 Hours): Last Vital Signs Temp 37.1 C 10/21/18 08:26 Pulse 115 H 10/21/18 08:26 Resp 16 10/21/18 08:26 BP 86/63 L 10/21/18 08:26 Pulse Ox 94 10/21/18 08:26
--- NOTE | 2018-10-23 22:06 | Discharge Summary ---
Date of Service October 23, 2018 Admission HPI Per Admitting Provider Attending: Dr. Munguiajessica Is a pleasant 83-year-old female who was diagnosed previously with pancreatic cancer with outlet obstruction. She has previously been admitted for obstructive jaundice as well as GI bleed. The patient was at home today and began to have bleeding and was instructed to come to the emergency department. She was found to have an elevated INR of 8 as well as a low hemoglobin of 6.4 and appeared to be pale. She was treated with K Centra and vitamin K. When given the option of transfusion the patient refused and requested palliative care. I did speak with the patient, the patient's , 2 brothers, and the patient's niece who is very active in her care and all are in agreement that palliative care is a direction that should be pursued. The patient currently has no abdominal pain. She has no rectal pain. She denies back pain or flank pain. She does feel weak but has no shortness of breath, chest pain, chest tightness. She is hemodynamically stable at this time and is on 2 L of supplemental oxygen via nasal cannula for comfort. At this point patient will be admitted for palliative care and for arrangements for hospice. 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 Admission Exam Per Admitting Provider Vital Signs (Past 24 Hours): Last Vital Signs Temp 36.4 C L 10/20/18 15:51 Pulse 93 H 10/20/18 16:31 Resp 20 10/20/18 16:31 BP 138/72 10/20/18 16:31 Pulse Ox 100 10/20/18 16:31 Physical Exam: GENERAL : No acute distress. Appears pale EYES: No icterus, gaze conjugate NOSE: No evidence of epistaxis MOUTH: No lesions or candidiasis NECK: Supple LUNGS: CTA B/L, no wheezes, rales or rhonchi HEART: Regular, rate controlled ABDOMEN: Soft, ND, BS Present. Some tenderness with deep palpation EXTREMITIES: No LE edema, pedal pulses intact NEURO: A&OX3. Principal Diagnosis ACUTE BLOOD LOSS ANEMIA SECONDARY TO UPPER GI BLEEDING Discharge Exam General- lethargic, not in distress Eyes- anicteric Neck- no JVD Lungs- clear breath sounds bilaterally Heart- normal rate, regular rhythm; no murmurs Abdomen- normal bowel sounds, nondistended, soft, nontender Extremities- no pretibial edema, no calf tenderness Neuro- lethargic Skin- warm & dry Discharge Data Allergies Allergy/AdvReac Type Severity Reaction Status Date / Time Ikigazw-Hsf-Dep Reductase Allergy Unknown muscle Verified 03/24/18 04:58 Inhibitor pain,weakness gemfibrozil Allergy Unknown Verified 10/20/18 16:39 tramadol AdvReac Severe Gastrointestinal Verified 10/20/18 16:39 Upset ezetimibe [From Zetia] AdvReac Fatigued Verified 10/20/18 16:39 ibuprofen AdvReac CAN NOT Verified 10/20/18 16:39 TAKE BECAUSE IS ON COUMADIN Consultations 10/20/18 16:24 ED Decision to Admit Stat 10/20/18 18:33 Consult Case Management - Discharge Planning Routine Consult Gastroenterology Routine Consult Palliative Care Stat Hospital Course (1) Acute GI bleeding: (1) Acute GI bleeding: Supratherapeutic INR secondary to Coumadin for DVT Patient given K Centra as well as vitamin K in the emergency department Hemoglobin 6.4 -patient refusing transfusion -- patient and family preferred to focus on comfort -- on hospital day 2, patient remained lethargic family requested comfort measures status only patient remained comfortable, peaceful at 120pm, patient pronounced extended condolences to family (2) Pancreatic cancer: Palliative care consult placed (3) Blood loss anemia: Secondary to supratherapeutic INR secondary to Coumadin Patient refusing blood transfusion (4) Hyperkalemia: Potassium level 5.4 Patient focuses palliative care Total Time Total Time Spent Total Time Spent (In Minutes): 35 minutes Discharge Plan Discharge Items Patient Disposition: Admission Data Admit Date/Time: 10/20/18 18:10 Attending Provider: Jayme Duarte Admit Provider: Jayme Duarte Primary Care Provider: Elizabeth Ma Other Providers: Jayme Duarte ; Morelia Hill ; Yves Josue Service: Medical Other DC Date/Time DO NOT enter until pt leaves facility: 10/21/18 15:58
--- NOTE | 2018-10-23 22:11 | Hospitalist Progress Note ---
Date of Service October 23, 2018 delayed entry date of service 10 21 18 Assessment & Plan (1) Acute GI bleeding: (1) Acute GI bleeding: Supratherapeutic INR secondary to Coumadin for DVT Patient given K Centra as well as vitamin K in the emergency department Hemoglobin 6.4 -patient refusing transfusion Hg dropped to 4 discussed with patient's niece family preferred to transition goal of care to comfort measures patient remained comfortable, peaceful at 120pm, patient pronounced extended condolences to family (2) Pancreatic cancer: Palliative care consult placed (3) Blood loss anemia: Secondary to supratherapeutic INR secondary to Coumadin Patient refusing blood transfusion (4) Hyperkalemia: Potassium level 5.4 Patient focuses palliative care Subjective ff up for gi bleeding received morphine in AM due to pain, distress patient seen lethargic not in distress family at bedside Physical Exam Vital Signs (Past 24 Hours): Last Vital Signs Temp 37.1 C 10/21/18 08:26 Pulse 115 H 10/21/18 08:26 Resp 16 10/21/18 08:26 BP 86/63 L 10/21/18 08:26 Pulse Ox 94 10/21/18 08:26 Physical Exam: General- lethargic not in distress Eyes- pale conj Neck- no JVD Lungs- clear breath sounds bilaterally Heart- normal rate, regular rhythm; no murmurs Abdomen- normal bowel sounds, nondistended, soft, nontender Extremities- no pretibial edema, no calf tenderness Neuro-lethargic Skin- warm & dry Results & Data Laboratory Results noted and reviewed
== END 2018-10-21 15:58 | disposition expired | DRG 378 ==
LOC: ED 15:13 → 4E 18:00
DX: E11.9 Type 2 diabetes mellitus without complications; C25.9 Malignant neoplasm of pancreas, unspecified; D50.0 Iron deficiency anemia secondary to blood loss (chronic); E78.00 Pure hypercholesterolemia, unspecified; K92.2 Gastrointestinal hemorrhage, unspecified; I10 Essential (primary) hypertension; E87.5 Hyperkalemia; E78.5 Hyperlipidemia, unspecified; G89.29 Other chronic pain; Z88.6 Allergy status to analgesic agent; K21.9 Gastro-esophageal reflux disease without esophagitis; Z66 Do not resuscitate; M54.9 Dorsalgia, unspecified; Z79.01 Long term (current) use of anticoagulants; Z51.5 Encounter for palliative care; Z86.718 Personal history of other venous thrombosis and embolism